=== PATIENT | female | born 1960 | race Caucasian/White ===

== ENCOUNTER → 2020-05-11 13:33 | Outpatient (CLI) | payer BC, SELFPAY ==
--- NOTE | ~2020-05-11 | MM_ITS ---
EXAMINATION: MM screening [facility] HISTORY: Screening mammogram TECHNIQUE: Craniocaudal and mediolateral oblique 3-D tomosynthesis images were obtained and synthetic 2-D images were generated. CAD analysis was submitted and interpreted. COMPARISON: No prior mammogram is available for comparison at this institution. BREAST PARENCHYMAL COMPOSITION: There are scattered areas of fibroglandular density. FINDINGS: Occasional benign calcifications. There is no evidence of suspicious mass, calcification, o r architectural distortion to suggest malignancy in either breast. There has been no suspicious inter serena change. IMPRESSION: 1. No mammographic evidence of malignancy. 2. Recommend routine screening mammography in one year. BI-RADS Category 2: Benign finding(s). Reviewed, dictated and finalized at location A.
== END ==
PROVIDERS: Visit Provider Physician Assistant
DX: Z12.31 Encounter for screening mammogram for malignant neoplasm of breast (principal)
CPT/HCPCS: 77063; 77067

== ENCOUNTER → 2021-05-17 10:31 | Outpatient (CLI) | payer BC, SELFPAY ==
--- NOTE | ~2021-05-17 | MM_ITS ---
EXAMINATION: MM screening [facility] HISTORY: Screening mammogram TECHNIQUE: Craniocaudal and mediolateral oblique 3-D tomosynthesis images were obtained and synthetic 2-D images were generated. CAD analysis was submitted and interpreted. COMPARISON: 05/11/2020 BREAST PARENCHYMAL COMPOSITION: There are scattered areas of fibroglandular density. FINDINGS: There is no evidence of suspicious mass, calcification, or architectural distortion to sugg est malignancy in either breast. There has been no suspicious interval change. IMPRESSION: 1. No mammographic evidence of malignancy. 2. Recommend routine screening mammography in one year. BI-RADS Category 1: Negative Reviewed, dictated and finalized at location A.
== END ==
PROVIDERS: PCP Physician Assistant; Visit Provider Physician Assistant
DX: Z12.31 Encounter for screening mammogram for malignant neoplasm of breast (principal)
CPT/HCPCS: 77063; 77067

== ENCOUNTER → 2021-11-08 10:47 | Outpatient (CLI) | payer BC, SELFPAY ==
--- NOTE | ~2021-11-08 | US_ITS ---
EXAMINATION: US pelvic complete w TV EXAM DATE: 11/08/2021 11:10 INDICATION: Postmenopausal bleeding. TECHNIQUE: Pelvic transabdominal and transvaginal sonogram was performed. There are multiple graysca le and Doppler images available for interpretation. There is no prior study for comparison. FINDINGS: Uterus measures 5.9 x 2.1 x 3.2 cm, and is morphologically normal. Endometrial stripe clair sures 3 mm, within normal limits. There is no free pelvic fluid. Right adnexa: The ovary is not identified. There is no adnexal mass. Left adnexa: The ovary is not identified. There is no adnexal mass. IMPRESSION: Unremarkable pelvic ultrasound exam. Reviewed, dictated and finalized at location G. AD TRIMMER
== END ==
PROVIDERS: Visit Provider Nurse Practitioner Family
DX: N95.1 Menopausal and female climacteric states (principal); N95.0 Postmenopausal bleeding
CPT/HCPCS: 76830; 76856

== ENCOUNTER → 2021-11-20 10:21 | Outpatient (CLI) | payer BC, SELFPAY ==
--- NOTE | ~2021-11-20 | DEXA_ITS ---
Bone Density Report Name: QUIANA REDDING Age: 61 Sex: Female Ethnicity: White Date of : 1960 Indication: postmenopausal osteoporosis; monitoring treatment; height loss; Referring Provider: KRISTI, DARRELL SOTO Study: Bone densitometry was performed. Exam Date: November 20, 2021 Accession number: [id number] Bone Density: Region BMD T-score Z-score Classification AP Spine (L1-L4) 0.818 -2.1 -0.5 Osteopenia Femoral Neck (Left) 0.617 -2.1 -0.7 Osteopenia Total Hip (Left) 0.755 -1.5 -0.4 Osteopenia Femoral Neck (Right) 0.597 -2.3 -0.9 Osteopenia Total Hip (Right) 0.721 -1.8 -0.7 Osteopenia Total Hip Mean 0.738 -1.7 -0.6 Osteopenia World Health Organization criteria for BMD impression classify patients as: Normal (T-score at or above -1.0), Osteopenia (T-score between -1.0 and -2.5), or Osteoporosis (T-score at or below -2.5). 10-year Fracture Risk: FRAX not reported because: Treated for osteoporosis Previous Exams: Region Exam Age BMD T-score BMD Change BMD Change Date g/cm2 vs Baseline vs Previous AP Spine(L1-L4) 11/20/2021 61 0.818 -2.1 0.063* 0.063* 08/12/2019 59 0.755 -2.7 Total Hip(Left) 11/20/2021 61 0.755 -1.5 0.060* 0.060* 08/12/2019 59 0.695 -2.0 Total Hip(Right) 11/20/2021 61 0.721 -1.8 0.026 0.026 08/12/2019 59 0.695 -2.0 *Denotes significance at 95% confidence level, LSC for AP Spine = 0.022 g/cm2, LSC for Total Hip = 0.027 g/cm2 Clinical Information Provided by Patient: Is being treated for osteoporosis Has used the following medications: Fosamax (i.e. alendronate), Vitamin D, Calcium, MTV Patient maximum height was 64.0 Menopause Age: 54 Drinks caffeinated beverages Onset of menses at age 12 Number of children 1 Impression: The patient has low bone mass, based on the Right Femoral Neck T-score. No significant bone loss was observed. Discussion: PATIENT UNDER TREATMENT WITH NO SIGNIFICANT BMD LOSS SINCE LAST EXAM. In an untreated patient, BMD typically declines with age. A lack of decline or gain is usually a sign that treatment is efficacious and fracture risk is reduced. It is important to ask patients whether they are taking their medications and to encourage continued and appropriate compliance with their osteoporosis therapies to reduce fracture risk. It is also important to review their risk factors and encourage appropriate calcium and vitamin D intakes, e
== END ==
PROVIDERS: PCP Physician Assistant; Visit Provider Physician Assistant
DX: M81.0 Age-related osteoporosis without current pathological fracture (principal); M85.88 Other specified disorders of bone density and structure, other site; M85.852 Other specified disorders of bone density and structure, left thigh; M85.851 Other specified disorders of bone density and structure, right thigh
CPT/HCPCS: 77080

== ENCOUNTER → 2021-12-11 08:43 | Outpatient (CLI) | payer BC, SELFPAY ==
--- NOTE | ~2021-12-11 | US_ITS ---
US abdomen limited INDICATION: Elevated liver enzymes PROCEDURE: Realtime right upper abdominal ultrasound. COMPARISON: No prior studies for comparison. FINDINGS: The pancreas is normal without focal mass or pancreatic ductal dilation. Liver echotexture is normal without focal mass or intrahepatic biliary dilatation. There is normal directional flow i n the portal vein. Gallbladder is surgically absent. Common bile duct measures 3.6 mm. No sonographic Dunne's sign. IMPRESSION: 1: Normal limited abdominal ultrasound. Reviewed, dictated and finalized at location A.
== END ==
PROVIDERS: PCP Physician Assistant; Visit Provider Physician Assistant
DX: R74.01 Elevation of levels of liver transaminase levels (principal)
CPT/HCPCS: 76705

== ENCOUNTER → 2022-06-11 15:17 | Outpatient (CLI) | payer BC, SELFPAY ==
--- NOTE | ~2022-06-11 | MM_ITS ---
EXAMINATION: MM screening [facility] BI w carlos HISTORY: Screening mammogram TECHNIQUE: Craniocaudal and mediolateral oblique 3-D tomosynthesis images were obtained and synthetic 2-D images were generated. CAD analysis was submitted and interpreted. COMPARISON: 05/17/2021, 05/11/2020 BREAST PARENCHYMAL COMPOSITION: There are scattered areas of fibroglandular density. FINDINGS: There is no suspicious mass, calcification, or architectural distortion to suggest malignan cy in either breast. There has been no suspicious interval change. IMPRESSION: 1. No mammographic evidence of malignancy. 2. Recommend routine screening mammography in one year. BI-RADS Category 1: Negative Reviewed, dictated and finalized at location A.
== END ==
PROVIDERS: PCP Physician Assistant; Visit Provider Nurse Practitioner
DX: Z12.31 Encounter for screening mammogram for malignant neoplasm of breast (principal)
CPT/HCPCS: 77063; 77067

== ENCOUNTER → 2023-07-15 13:27 | Outpatient (CLI) | payer BC, SELFPAY ==
--- NOTE | ~2023-07-15 | MM_ITS ---
EXAMINATION: MM screening [facility] HISTORY: Screening mammogram TECHNIQUE: Craniocaudal and mediolateral oblique 3-D tomosynthesis images were obtained and synthetic 2-D images were generated. CAD analysis was submitted and interpreted. COMPARISON: 06/11/2022, 05/17/2021, 05/11/2020 bilateral screening mammogram examinations BREAST PARENCHYMAL COMPOSITION: There are scattered areas of fibroglandular density. FINDINGS: There is no evidence of suspicious mass, calcification, or architectural distortion to sugg est malignancy in either breast. There has been no suspicious interval change. IMPRESSION: 1. No mammographic evidence of malignancy. 2. Recommend routine screening mammography in one year. BI-RADS Category 1: Negative Reviewed, dictated and finalized at location A.
== END ==
PROVIDERS: PCP Nurse Practitioner; Visit Provider Physician Assistant
DX: Z12.31 Encounter for screening mammogram for malignant neoplasm of breast (principal)
CPT/HCPCS: 77063; 77067

== ENCOUNTER 2024-06-16 09:21 | Outpatient (CLI) | payer MEDICARE, OTHER, SELFPAY ==
--- NOTE | 2024-06-16 09:32 | ECG_ITS ---
Test Date: 2024-06-16 09:45:17 Measurements Intervals [place] Rate: 74 P: 55 WI: 129 QRS: 22 QRSD: 83 T: 36 QT: 356 QTc: 396 Interpretive Statements SINUS RHYTHM BASELINE ARTIFACT- I, II, III, AVR, AVL, AVF NORMAL ECG No previous ECG available for comparison Electronically Signed On 06-16-2024 10:12:55 CDT by Buddy Valencia D.O.
[2024-06-16 10:50] LABS: Hematocrit 40.6 % (37.0-47.0); Hemoglobin 13.8 g/dL (12.0-15.0)
[2024-06-16 11:00] LABS: Prothrombin Time 13.8 Seconds (11.1-14.7)
[2024-06-16 11:10] LABS: Anion Gap 10 mmol/L (4-12); Blood Urea Nitrogen 15 mg/dL (7-17); Carbon Dioxide 28 mmol/L (22-30); Chloride 100 mmol/L (98-107); Estimated Glomerular Filt Rate > 60; Glucose 109 mg/dL (65-110); Potassium 3.8 mmol/L (3.4-5.0); Sodium 138 mmol/L (137-145)
== END 2024-06-16 09:22 | disposition home or self-care (01) ==
LOC: ANHSURGERY 09:28
PROVIDERS: Anesthesiology; PCP Physician Assistant; Visit Provider Podiatrist Foot & Ankle Surgery
DX: E78.5 Hyperlipidemia, unspecified (principal); E83.119 Hemochromatosis, unspecified; Z01.818 Encounter for other preprocedural examination
CPT/HCPCS: 36415; 80048; 85014; 85018; 85610; 85730; 93005

== ENCOUNTER 2024-06-18 00:57 | Day surgery (SDC) | payer MEDICARE, OTHER, SELFPAY ==
[2024-06-14 12:14] VITALS: BMI 26.2
--- NOTE | 2024-06-14 12:36 | PC.NURSE ---
Report to the Outpatient Waiting Room, entrance under the green pavilion located off [facility], at time __09:30am___on date 06/18/24 . Planned Procedure Time: ___11:30am .? Time changes happen often and if your time is changed the preop area will call you the afternoon before. - You and your visitor will be asked to self-screen and do not enter if you have any COVID symptoms. Please call surgeon if you need to reschedule. - A mask is optional within the hospital at this time. Patients may have clear liquids (water, carbonated beverages, clear teas, apple juice) until 3 hours prior to surgery with a maximum of 20 ounces. - No food from midnight until time of surgery and no smoking ( 08:30am) Take only the following medications with a SIP of water on the morning of surgery: Levothyroxine DO NOT STOP ANY OF YOUR OTHER PRESCRIPTION MEDICATIONS PRIOR TO SURGERY EXCEPT THE FOLLOWING Medications to discontinue per physician ___Hold all vitamins, supplements and probiotics 3 days prior per Anesthesia. Date to take last dose__06/14/24 Please no make-up, nail prydeinig, hairspray, perfume, deodorant, or body powder the day of surgery.? No jewelry (including any body piercings) or valuables the day of surgery, leave them at home.? Please take a shower or bath the night before, or the morning of, surgery with an antibacterial soap.? Wear comfortable, loose fitting clothing.? - Jewelry must be removed prior to entering the operating room.? Rings and piercings that are not removed may be cut off. - The hospital will not accept responsibility for valuables.? - Please leave all valuables, including medications, at home the day of surgery. If you are going home after surgery, a licensed mail truck driver must drive you home.? - NO public transportation without another adult if you receive anesthesia. - We recommend that an adult stay with you for 24 hours following discharge. - We also recommend that you do not drive, make important decision, drink alcoholic beverages, or take any drugs that were not prescribed by your health care provider for at least 24 hours after your discharge time. Follow any additional instructions given to you from your surgeon. Telephone instructions given to _patient and asked if any additional questions and then verbalized understanding. Patient advised to call surgeon office or pre surgery nurse liaison [phone] if any additional questions.
[2024-06-18] VITALS (9 sets, daily range): BP systolic 86–144; BP diastolic 51–104; PULSE 60–90; RESP 12–21; TEMP 36.2–36.8; O2SAT 98–100
--- NOTE | ~2024-06-18 | XR_ITS ---
EXAMINATION: XR surgery orthopedic DATE: 06/18/2024 13:07 INDICATION: Right foot arthrodesis TECHNIQUE: 2 fluoroscopic images of the right forefoot were obtained during procedure performed by Dr Javier Sebastian. Radiologist was not present for the imaging or procedure. The amount of fluoroscopy time used during this procedure was 0.1 minutes. COMPARISON: None. FINDINGS: Right first metatarsophalangeal arthrodesis with compression screw and dorsal plate-screw fixation. I s also been an osteotomy/bunionectomy along the medial head of the first metatarsal. Expected postope rative gas in the surrounding soft tissues. Alignment appears near-anatomic. No fracture. Joint space s are unremarkable. IMPRESSION: 1. Expected appearance post bunionectomy and instrumented first metatarsophalangeal arthrodesis. See procedure note for further detail. Reviewed, dictated and finalized at location A. IMPRESSION: 1. Expected appearance post bunionectomy and instrumented first metatarsophalan geal arthrodesis. See procedure note for further detail.
--- NOTE | 2024-06-18 07:16 | WPDHPUPDATE1 ---
History and Physical Update Update Date/Time: 06/18/24 07:16 History and Physical has been reviewed, including an updated exam of the patient. There are NO changes in the patient's condition. Risks, benefits, and alternatives have been discussed and questions answered. Patient agrees to proceed with procedure.
[2024-06-18] MEDS: LACTATED RINGERS 1,000 ML 30 ML IV CONT (10:20)
--- NOTE | 2024-06-18 10:25 | P.PNAN_ITS ---
Anes - Initial Pre Proc Eval Procedure: Operation Date: 06/18/24 11:30 Proposed Procedures p Arthrodesis of First Metatarsophalangeal Joint Right Foot - Micah Sebastian Jr., DPM Date/Time: 06/18/24 10:25 Surgeon: Micah Sebastian Jr., DPM Pre Op Diagnosis: Arthritic Bunion Right Foot Patient Data Age: 64 Gender: F Height: 1.6 m Weight: 68 kg Last Vital Signs Temp 98.3 F 06/18/24 10:21 Pulse 82 06/18/24 10:21 Resp 16 06/18/24 10:21 BP 144/104 H 06/18/24 10:21 Pulse Ox 99 06/18/24 10:21 O2 Del Method Room Air 06/18/24 10:21 Allergies Allergy/AdvReac Type Severity Reaction Status Date / Time peanut Allergy Intermediate Headache Verified 06/18/24 09:47 Sulfa (Sulfonamide Allergy Intermediate Rash Verified 06/18/24 09:47 Antibiotics) wheat Allergy Intermediate Headache Verified 06/18/24 09:47 Home Medications Medication Instructions Recorded Confirmed Type cholecalciferol (vitamin D3) 125 125 mcg PO DAILY 06/14/24 06/18/24 History mcg (5,000 unit) tablet (Vitamin D3) levothyroxine 50 mcg tablet 50 mcg PO DAILY 06/14/24 06/18/24 History rosuvastatin 5 mg tablet 5 mg PO DAILY 06/14/24 06/18/24 History Patient hx anesthesia problems: none Family hx anesthesia problems: none Results Review: All pre-operative results and documents have been reviewed as part of the pre-o perative evaluation. [facility] Family History Family History Mother Hypertension Other Diabetes mellitus Family history of arthritis Family history of congenital heart disease Family history of malignant neoplasm Social History Social History Smoking status: Never smoker Alcohol intake: never Substance use: never Living arrangements: with family Additional living arrangements comments: Spiritual care concerns: No Anes - Eval Final PreProcedure Day of Procedure 06/18/24 10:25 Patient weight: normal Heart: regular rate and rhythm Lungs: clear to auscultation Airway: Mallampati scale class II Neurological: alert and oriented Last oral intake: >/= 8 hours ASA classification: II Emergent: no Anesthetic plan: proceed Anesthesia type and monitoring: general LMA and standard monitoring Results Review: All pre-operative results and documents have been reviewed as part of the pre- operative evaluation. Hyperlipidemia. Pt active w walking 1-2 fos, no cp or sob. Informed Consent: The patient's anesthetic plan and its attendant risks and benefits were discussed with the patient/family/POA. Questions were solicited and answers provided to the satisfaction of the patient/family/POA.
[2024-06-18] MEDS: ceFAZolin 2 GM/D5W 50 ML 2 GM/50 ML BAG IVPB (12:08)
--- NOTE | 2024-06-18 12:42 | WPDANESPNB ---
Anes - Peripheral Nerve Block Date/Time: 06/18/24 12:42 I have discussed with the patient/family/POA the placement of a peripheral nerve block for post-operative pain management, including associated risks, benefits, complications, and side effects. Alternative methods of post-operative analgesia were detailed. Questions were solicited and answers provided to the satisfaction of the patient/family/POA. Time-Out: A pre-procedural Time-Out was completed immediately before starting the procedure and confirmed: Patient Identification, Site, Procedure, Patient Position and the Availability of Requisite Equipment. Clinical Indications: Acute post-operative pain management requested by the operative surgeon. Nerve Block Insertion Note Anes-nerve block: posterior fossa sciatic and adductor canal Patient position: supine Skin prep: chlorhexidine Needle: 22 gauge, stimulating, insulated echogenic needle. Needle length: 80 mm Technique: ultrasound Injectate: other (Bupiv 0.5%, 20 mls total. 10 mls add canal/10 mls post sciatic. ) Observations: tolerated well Complications: none Procedure start time:: 1150 Procedure end time:: 1157
--- NOTE | 2024-06-18 13:27 | W.PM.PROC2 ---
Procedure Note - Detailed Date of Procedure 06/18/24 Pre-op Diagnosis Arthritic Bunion Right Foot Post-op Diagnosis Same Procedure Performed Arthrodesis of the first metatarsal phalangeal joint right foot Surgeon Micah Sebastian Jr., DPM Anesthesia General and Regional Indications Painful right forefoot Findings Loss of articular cartilage to the first metatarsal phalangeal joint right foot Description of Procedure PROCEDURE IN DETAIL: Under mild sedation, the patient was brought into the operating room, placed on the operating table in supine position. A pneumatic ankle tourniquet was placed about the patient's ipsilateral ankle. Following general anesthesia and a popliteal fossa block, the foot was then scrubbed, prepped, and draped in the usual aseptic manner. An Esmarch bandage was then used to exsanguinate the patient's foot and the pneumatic ankle tourniquet was then inflated. Surgery began in the following manner: Attention was directed to the dorsal medial aspect of the 1st metatarsophalangeal joint where there was a moderate subcutaneous prominence was noted. The incision was made starting along the central shaft of the 1st metatarsal and extending just proximal to the interphalangeal joint of the hallux. The incision was continued deep down through the subcutaneous tissues using sharp and blunt dissection. All bleeders were cauterized as necessary. At this point, the dissection was continued down to the level of the periosteum and capsular structures overlying the 1st metatarsophalangeal joint. A full length periosteum and capsular incision was made just medial to the extensor hallucis longus tendon. The periosteum and capsular structures were freed from the base of the proximal phalanx as well as the distal 1st metatarsal. At this point, the 1st metatarsophalangeal joint was identified. There was loss of articular cartilage to the head of the 1st metatarsal as well as the base of the proximal phalanx worse centrally and medially. There was significant broadening and hypertrophy of the 1st metatarsophalangeal joint. Utilizing a sagittal bone saw, the hypertrophied 1st metatarsal was resected dorsally, medially, and laterally. A power bur was used to make sure that there were no rough edges and also to further debride the hypertrophic 1st metatarsal. Next, a rongeur was used to resect the hypertrophic base of the proximal phalanx. At this point, the reamer system for the Maxforce plate system was used to denude the degenerative cartilage from the head of the 1st metatarsal as well as the base of the proximal phalanx. The cartilage and subchondral bone were fully debrided utilizing the reamer system until healthy bleeding bone was noted. Next, a 2-0 drill bit was used to further fenestrate the head of the 1st metatarsal as well as the base of the proximal phalanx in order to allow fusion across the 1st metatarsophalangeal joint. Next, a guide wire for a 3.0 headed Arthrex compression screw was driven from the medial aspect of the base of the proximal phalanx into the head of the 1st metatarsal in order to serve as temporary fixation, next the cannulated screw was driven and provided excellent compression. Next A large steel plate was used to make sure that the hallux was in a rectus position both in the sagittal plane as well as the frontal plane. Excellent position of the hallux was noted. Next, a Maxforce plate was placed atop the 1st metatarsophalangeal joint held in position with [place] wires. Utilizing standard principles and techniques, the distal drill holes were drilled and three 3.0 mm mm fully-threaded locking screws were driven from dorsal to plantar holding the distal aspect of the plate intact. At this point, the Maxforce compression system was utilized from dorsal distal to proximal plantar across the 1st metatarsophalangeal joint with excellent compression noted. Next, a 3.0mm locking screw was used to furth
== END 2024-06-18 15:45 | disposition home or self-care (01) ==
PROVIDERS: PCP Physician Assistant; Visit Provider Podiatrist Foot & Ankle Surgery
PROC: (CPT 28750; principal; 2024-06-18 11:30)
DX: M21.611 Bunion of right foot (principal); E78.5 Hyperlipidemia, unspecified; G89.18 Other acute postprocedural pain; M19.071 Primary osteoarthritis, right ankle and foot; E83.119 Hemochromatosis, unspecified; E07.9 Disorder of thyroid, unspecified; Z98.890 Other specified postprocedural states; Z80.9 Family history of malignant neoplasm, unspecified; Z82.49 Family history of ischemic heart disease and other diseases of the circulatory system
CPT/HCPCS: 64445; 64447; 28750; 99199; C1713; C1769; J0690; J1100; J2250; J2405; J2704; J3010; J7120

== ENCOUNTER 2024-10-27 11:25 | Outpatient (CLI) | payer MEDICARE, OTHER, SELFPAY ==
--- NOTE | ~2024-10-27 | MM_ITS ---
EXAMINATION: MM screening [facility] BI w carlos HISTORY: Screening TECHNIQUE: Craniocaudal and mediolateral oblique 3-D tomosynthesis images were obtained and synthetic 2-D images were generated. CAD analysis was submitted and interpreted. COMPARISON: Comparison to multiple prior studies sequentially, with oldest reviewed study dated 05/11. BREAST PARENCHYMAL COMPOSITION: Not dense: There are scattered areas of fibroglandular density. FINDINGS: There is no evidence of suspicious mass, calcification, or architectural distortion to sugg est malignancy in either breast. There has been no suspicious interval change. IMPRESSION: 1. No mammographic evidence of malignancy. 2. Recommend routine screening mammography in one year. BI-RADS Category 1: Negative Reviewed, dictated and finalized at location B. DRIVER
== END 2024-10-27 11:26 | disposition home or self-care (01) ==
LOC: MICIMG 11:26
PROVIDERS: PCP Nurse Practitioner; Visit Provider Physician Assistant
DX: Z12.31 Encounter for screening mammogram for malignant neoplasm of breast (principal)
CPT/HCPCS: 77063; 77067

== ENCOUNTER 2024-11-01 08:17 | Outpatient (CLI) | payer MEDICARE, OTHER, SELFPAY ==
--- NOTE | ~2024-11-01 | DEXA_ITS ---
Bone Density Report Name: QUIANA REDDING Age: 64 Sex: Female Ethnicity: White Date of : 1960 Indication: postmenopausal; screening for osteoporosis; height loss; Referring Provider: KRISTI, DARRELL Study: Bone densitometry was performed. Exam Date: November 01, 2024 Accession number: [id number] Bone Density: Region BMD T-score Z-score Classification AP Spine(L1-L4) 0.781 -2.4 -0.6 Osteopenia Femoral Neck (Left) 0.628 -2.0 -0.4 Osteopenia Total Hip (Left) 0.717 -1.8 -0.6 Osteopenia Femoral Neck (Right) 0.605 -2.2 -0.6 Osteopenia Total Hip (Right) 0.682 -2.1 -0.9 Osteopenia Total Hip Mean 0.699 -2.0 -0.8 Osteopenia World Health Organization criteria for BMD impression classify patients as: Normal (T-score at or above -1.0), Osteopenia (T-score between -1.0 and -2.5), or Osteoporosis (T-score at or below -2.5). 10-year Fracture Risk(1): Major Osteoporotic Fracture 11% Hip Fracture 1.9% Reported Risk Factors: [place] (), Neck BMD=0.605, BMI=27.1 (1) FRAX(R) Version 3.08. Fracture probability calculated for an untreated patient. Fracture probability may be lower if the patient has received treatment. Clinical Information Provided by Patient: Has used the following medications: Vitamin D, Calcium Patient maximum height was 64.0 Menopause Age: 54 Drinks caffeinated beverages Onset of menses at age 12 Number of children 1 Impression: The patient has low bone mass, based on the Total Spine T-score. The patient has an estimated ten-year risk of hip fracture of 1.9% and an estimated ten-year risk of major fracture of 11%, based on the WHO FRAX algorithm. Discussion: BONE DENSITY IS LOW AT ONE OR MORE SKELETAL SITES. This patient's lowest T-score is low at one or more skeletal sites. It meets the World Health Organization's (WHO) criteria for ?low bone mass? (T-score between -1.0 and -2.5). The patient's 10-year risk of fracture as calculated by FRAX is less than the threshold where pharmacological therapy is recommended by the National Osteoporosis Foundation (NOF). However, all treatment decisions require clinical judgment and consideration of individual patient factors, including patient preferences, comorbidities, previous drug use, risk factors not captured in the FRAX model (e.g., frailty, falls, vitamin D deficiency, increased bone turnover, interval significant decline in bone density) and possible under or overestimation of fracture risk by FRAX. The patient should follow a healthful lifestyle (good nutrition with adequate calcium and vitamin D, and appropriate weight-bearing exercise). Follow-Up: Consider repeating this study in 2 to 3 years to reassess this patient's status, or sooner if there is some new clinical indication. Reported by: EDY on 11/01/2024 8:46:00 AM. Reviewed, dictated and finalized at location [facility]
--- OUTSIDE RECORDS SUMMARY | 2024-11-01 08:24 | XMS_ITS | Data Portability ---
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 Plan of Treatment Reminders Order Date Submit Date Provider Last Modified By Organization Details Last Modified Time Details Appointments None recorded. Lab vitamin D, 25-hydroxy , total, serum 2022 023 DOMENICA [facility], [address] [facility], [facility] [address], [place], [address], 3 09:05:50 CMP, serum or plasma 2022 023 [email or web address] [facility], [address] [place] [address], [facility] [address], [place], [address], 3 17:14:01 CBC w/ auto diff 2022 023 DOMENICA [facility], [address] [place] [address], [facility] [address], [place], [address], 3 09:05:49 TSH + free T4, serum 2022 023 DOMENICA [facility], [address] [facility], [facility] [address], [place], [address], 3 09:05:49 lipid panel, serum 2022 023 DOMENICA [facility], [address] [facility], [facility] [address], [place], [address], 3 09:05:50 HbA1c (hemoglobi n A1c), blood 2022 023 [email or web address] [facility], [address] [facility], [facility], [place], [address], 3 17:14:01 Referral None recorded. Procedures None recorded. Surgeries None recorded. Imaging MAMMO, screening, digital, bilateral 2022 023 [facility], [address], [facility] [address], [place], [address], 3 16:25:06 Medication Orders None recorded. Patient TargetsNo targets recorded. Patient InstructionsNo instructions recorded. Reason for Referral None Reported. Results Created Date Observation Date Name Description Value Unit Range Abnormal Flag Note LastModifiedBy Organization Detail LastModifiedTime 12/08/1912/08/2021 GGT GGT 247 IU/L 0-60 above high normal Not Available [facility] ([facility]) [address] [facility], [place], [address], 12/13/2021 20:09:50 12/08/19 22 12/08/2021 ANTI- GUERRERO H MUSCL E/HENRRY [place] D. actin (smooth muscle) antibody 4 units 0-19 Negat jackie 0 - 19 Weak posit jackie 20 - 30 Moder ate to stron g posit jackie >30 Actin Antib odies are found in 52-85 % of patie nts with autoi mmune hepat itis or chron ic activ e hepat itis and in 22% of patie nts with prima ry bilia ry cirrh osis. Not Available [facility] ([facility]) [address] [facility], [place], [address], 12/13/2021 20:09:50 12/08/19 22 12/08/2021 ANTI- GUERRERO H MUSCL E/HENRRY [place] D. mitochondria l (M2) antibody <20.0 units 0.0-20 .0 Negat jackie 0.0 - 20.0 Equiv ocal 20.1 - 24.9 Posit jackie >24.9 Mitoc hondr ial (M2) Antib odies are found in 90-96 % of patie nts with prima ry bilia ry cirrh osis. Not Available [facility] ([facility]) [address] [facility], [place], [address], 12/13/2021 20:09:50 12/08/19 22 12/08/2021 HEPAT ITIS PANEL (4) hep A Ab, IgM negati ve negati ve Not Available [facility] ([facility]) [address] [place], [address], 12/13/2021 20:09:49 12/08/19 22 12/08/2021 HEPAT ITIS PANEL (4) HBsAg screen negati ve negati ve Not Available [facility] ([facility]) [address] [place], [address], 12/13/2021 20:09:49 12/08/19 22 12/08/2021 HEPAT ITIS PANEL (4) hep B core Ab, IgM negati ve negati ve Not Available [facility] ([facility]) [address] [place], [address], 12/13/2021 20:09:49 12/08/19 22 12/08/2021 HEPAT ITIS PANEL (4) hep C virus Ab 0.1 s/co_ ratio 0.0-0. 9 Negat jackie: < 0.8 Indet ermin ate: 0.8 - 0.9 Posit jackie: > 0.9 The CDC recom mends that a posit jackie HCV antib heather resul t be follo wed up with a HCV Nucle ic Acid Ampli ficat ion test (5507 13). Eff ectiv e January 21, 2022 Hepat itis Panel (4) will be made non-o rdera ble. [facility] offer s order code [id number] Acute Hepat itis. Not Available [facility] ([facility]) [address] [place], [address], 12/13/2021 20:09:49 12/08/19 22 12/13/2021 ALKAL INE PHOSP HATAS E ISOEN ZYME alkaline phosphatase 225 U/L 40-120 above high normal Not Available [facility] [address] [place], [address], 12/13/2021 20:09:49 12/08/19 22 12/13/2021 ALKAL INE PHOSP HATAS E ISOEN ZYME alk-phosphat ase liver calc 185 U/L 0-94 above high normal INTER PRETI VE INFOR MATIO N: Alk-P hosph atase Liver Calc Bone Speci fic Alkal ine Phosp hatas e (0070 053) and 5'-nu cleot idase (0080 235) may be usefu l in ident ifyin g disor ders of bone and liver , respe ctive ly. Not Available [facility] ([facility]) [address] [place], [address], 12/13/2021 20:09:49 12/08/19 22 12/13/2021 ALKAL INE PHOSP HATAS E ISOEN ZYME alk-phosphat ase bone calc 41 U/L 0-55 Not Available [facility] [address] [place], [address], 12/13/2021 20:09:49 12/08/19 22 12/13/2021 ALKAL INE PHOSP HATAS E ISOEN ZYME alk-phosphat ase other calc 0 U/L Not Available [facility] [address] [place], [address], 12/13/2021 20:09:49 12/08/19 22 12/08/2021 HEPAT IC FUNCT ION PANEL (7) protein, total 7.2 g/dL 6.0-8. 5 Not Available [facility] ([facility]) [address] [facility], [place], [address], 12/13/2021 20:09:48 12/08/19 22 12/08/2021 HEPAT IC FUNCT ION PANEL (7) albumin 4.5 g/dL 3.8-4. 8 Not Available [facility] ([facility]) [address] [facility] [place], [address], 12/13/2021 20:09:48 12/08/19 22 12/08/2021 HEPAT IC FUNCT ION PANEL (7) bilirubin, total 0.2 mg/dL 0.0-1. 2 Not Available [facility] ([facility]) [address] [facility] [place], [address], 12/13/2021 20:09:48 12/08/19 22 12/08/2021 HEPAT IC FUNCT ION PANEL (7) bilirubin, direct <0.10 mg/dL 0.00-0 .40 Not Available [facility] ([facility]) [address] [facility] [place], [address], 12/13/2021 20:09:48 12/08/19 22 12/08/2021 HEPAT IC FUNCT ION PANEL (7) alkaline phosphatase 234 IU/L 44-121 above high normal Not Available [facility] ([facility]) [address] [place], [address], 12/13/2021 20:09:48 12/08/19 22 12/08/2021 HEPAT IC FUNCT ION PANEL (7) AST (SGOT) 45 IU/L 0-40 above high normal Not Available [facility] ([facility]) [address] [facility] [place], [address], 12/13/2021 20:09:48 12/08/19 22 12/08/2021 HEPAT IC FUNCT ION PANEL (7) ALT (SGPT) 79 IU/L 0-32 above high normal Not Available [facility] ([facility]) [address] [place], [address], 12/13/2021 20:09:48 11/29/19 22 11/20/2021 DEXA No observ ation record ed. [id number] [facility] [address], [place], [address], 11/20/2022 18:02:38 12/13/19 22 12/11/2021 US, abdom en, limit ed No observ ation record ed. [id number] [facility] [address], [place], [address], 11/20/2022 18:02:38 04/03/20 22 04/03/2022 XR, elbow , 3 or more view No observ ation record ed. [id number] [facility] [address] [facility], [place], [address], 11/20/2022 18:02:38 04/04/20 22 XR, elbow No observ ation record ed. [id number] Not Available 11/20/2022 18:02:38 05/07/20 22 XR, elbow , 2 view No observ ation record ed. [id number] [id number] [address], [place], [address], 11/20/2022 18:02:38 07/15/20 23 07/15/2023 MAMMO , scree binu, digit al, bilat eral No observ ation record ed. BARCODE [facility] [address], [place], [address], 07/15/2023 16:25:06 Result Notes None recorded. Problems Name Problem SNOMED Code Status Onset Date Resolution Date Notes Provider Name and Address Organization Details Recorded Time Acute sinusitis 69316655 Active 2021 Not Available [facility] 3 18:01:44 Chronic sinusitis 15973399 Active 2015 Not Available [facility] 3 18:01:44 Acute urinary tract infection 644526403 Active 2021 Not Available [facility] 3 18:01:44 Carpal tunnel syndrome 30234295 Active Not Available [facility] 3 18:01:44 Osteoporosis 58833334 Active 2021 Not Available [facility] 3 18:01:44 Liver enzymes level above reference range 597283989 Active 2021 Not Available [facility] 3 18:01:44 Hypothyroidis m 63365565 Active 2022 HI Ribeiro [address] [facility], [place], [address] , [place] [facility] [employer] 17:23:18 Problem Notes None recorded. Procedures Surgical History Date Name Laterality Status Provider Name and Address Organization Details Recorded Time 11/21/19 22 Most Recent Bone Density completed Not Available [facility] 11/20/2022 18:01:04 12/22/19 17 Unlisted px accessory sinus completed Not Available [facility] 11/20/2022 18:01:04 07/02/20 16 Date of Last Colonoscopy completed Not Available [facility] 11/20/2022 18:01:04 07/02/20 16 Colonoscopy completed Not Available [facility] 11/20/2022 18:01:04 05/23/20 16 Orthopedic Surgery completed Not Available [facility] 11/20/2022 18:01:04 Breast reduction completed Not Available [facility] 11/20/2022 18:01:04 Cholecystectomy completed Not Available [facility] 11/20/2022 18:01:04 Orthopedic Surgery completed Not Available [facility] 11/20/2022 18:01:04 Imaging Results Imaging Date Name Status LastModified by Organiz ation Details LastModified Time 11/20/2021 DEXA completed [id number] [facility] [address], [place], [address], 11/20/2022 18:02:38 12/11/2021 US, abdomen, limited completed [id number] [facility] [address], [place], [address], 11/20/2022 18:02:38 04/04/2022 XR, elbow completed [id number] Information not available 11/20/2022 18:02:38 04/03/2022 XR, elbow, 3 or more view completed [id number] [facility] [address], [place], [address], 11/20/2022 18:02:38 05/07/2022 XR, elbow, 2 view completed [id number] [facility] [address], [place], [address], 11/20/2022 18:02:38 07/15/2023 MAMMO, screening, digital, bilateral completed BAR[facility] [address], [place], [address], 07/15/2023 16:25:06 Procedure Notes None recorded. Medical Equipment None Reported. Allergies Allergen ID Allergen Name Allergen Category Reaction Reaction Severity Criticality Documentation Date Start Date Code Code System Note Provider Name and Address Organization Details Recorded Time 98484 wheat preparati on food,medi cation Not available Not available Not available 11/20/2022 94367 52 RxNorm Not Available [facility] 18:02:37 04309 Substance with sulfonami de structure and antibacte rial mechanism of action (substanc e) medicatio n rash Not available Not available 11/20/2022 59817 8003 SNOMED Not Available [facility] 18:02:37 Medications Name Sig Start Date Stop Date Status Note LastModified by Organization Details LastModified Time azithromyci n 250 mg tablet TAKE 2 TABLETS (500 MG) BY ORAL ROUTE ONCE DAILY FOR 1 DAY THEN 1 TABLET (250 MG) BY ORAL ROUTE ONCE DAILY FOR 4 DAYS active Not Available Not Available No t Available hydrocodone 5 mg-acetamin ophen 325 mg tablet 04/04 completed Not Available Not Available Not Available prednisone 20 mg tablet TAKE 2 TABLETS BY MOUTH DAILY FOR 5 DAYS 04/12 completed Not Available Not Available Not Available alendronate 70 mg tablet TAKE 1 TABLET BY MOUTH EVERY WEEK active Not Available Not Available No t Available ciprofloxac in 500 mg tablet TAKE 1 TABLET BY MOUTH EVERY 12 HOURS 11/01 completed Not Available Not Available Not Available Tamiflu 75 mg capsule Take 1 capsule twice a day by oral route. 04/23 completed Not Available Not Available Not Available amoxicillin 875 mg tablet TAKE 1 TABLET BY MOUTH EVERY 12 HOURS FOR 10 DAYS 04/18 completed Not Available Not Available Not Available benzonatate 100 mg capsule 05/17 completed Not Available Not Available Not Available levothyroxi ne 50 mcg tablet TAKE 1 TABLET BY MOUTH EVERY DAY IN THE MORNING active Not Available Not Available No t Available polymyxin B sulfate 10,000 unit-trimet hoprim 1 mg/mL eye drops active Not Available Not Available Not Available Cheratussin AC 10 mg-100 mg/5 mL oral liquid Take 10 mL every 4 hours by oral route as needed. 04/23 completed Not Available Not Available Not Available methylpredn isolone 4 mg tablets in a dose pack FOLLOW PACKAGE DIRECTION S active Not Available Not Available No t Available cefdinir 300 mg capsule Take 1 capsule every 12 hours by oral route. active Not Available Not Available No t Available fluticasone propionate 50 mcg/actuati on nasal spray,suspe nsion SHAKE LIQUID AND USE 1 SPRAY IN EACH NOSTRIL EVERY DAY active Not Available Not Available No t Available doxycycline hyclate 100 mg tablet 05/18 completed Not Available Not Available Not Available naproxen 500 mg tablet Take 1 tablet twice a day by oral route with meals. active Not Available Not Available No t Available amoxicillin 875 mg-potassiu m clavulanate 125 mg tablet TAKE 1 TABLET BY MOUTH EVERY 12 HOURS 11/01 completed Not Available Not Available Not Available tobramycin 0.3 %-dexametha sone 0.1 % eye drops,suspe nsion active Not Available Not Available Not Available Glucosamine Chondroitin capsule takes 1500mg daily 04/04 completed Not Available Not Available Not Available Vitamin D3 25 mcg (1,000 unit) capsule Take 1 capsule every day by oral route. 05/18 completed Not Available Not Available Not Available nitrofurant oin monohydrate /macrocryst als 100 mg capsule TAKE 1 CAPSULE BY MOUTH TWICE DAILY FOR 7 DAYS 03/16 completed Not Available Not Available Not Available evening primrose oil takes 100mg 3times a day 04/04 completed Not Available Not Available Not Available biotin takes 5000mg daily 04/12 completed Not Available Not Available Not Available Calcium 500 takes 2 tabs daily 04/12 completed Not Available Not Available Not Available Adult Low Dose Aspirin takes daily. 03/16 completed Not Available Not Available Not Available Aller-Teri 10 mg tablet Take 1 tablet every day by oral route. 2015 active Not Available Not Available Not Avai lable Probiotic takes daily 2015 active Not Available Not Available Not Avai lable Prepopik 10 mg-3.5 gram-12 gram oral powder packet 10/28 completed Not Available Not Available Not Available Vitals Date Recorded Body mass index (BMI) Body mass index (BMI) Body mass index (BMI) Body mass index (BMI) Body height Body height Body height Body height Oxygen saturation Oxygen saturation in Arterial blood by Pulse oximetry Oxygen saturation Oxygen saturation in Arterial blood by Pulse oximetry Pain severity - 0-10 verbal numeric rating [Score] - Reported Heart rate Heart rate Respiratory rate Respiratory rate Body temperature Body weight Body weight Body weight Body weight Systolic blood pressure Diastolic blood pressure Systolic blood pressure Diastolic blood pressure Provider Name and Address Organization Details Last Updated DateTime 3 256.4 kg/m2 24.3 kg/m2 24.7 kg/m2 24.1 kg/m2 162.56 cm 160.02 cm 160.02 cm 160.02 cm 98 % 98 % 97 % 97 % 2 110 /min 80 /min 16 /min 16 /min 97.6 [degF] 165239 g 89601.1 5 g 38840.4 9 g 10579.5 6 g 132 mm[Hg] 82 mm[Hg] 120 mm[Hg] 78 mm[Hg] Not Available [facility] 3 18:01:31 Date Recorded Body height Body temperature Body mass index (BMI) Body weight Respiratory rate Oxygen saturation Oxygen saturation in Arterial blood by Pulse oximetry Heart rate Systolic blood pressure Diastolic blood pressure Provider Name and Address Organization Details Last Updated DateTime 3 160.02 cm 97.2 [degF] 25.3 kg/m2 84825.7 1 g 16 /min 99 % 99 % 89 /min 128 mm[Hg] 78 mm[Hg] AMANDA Longoria [employer] 09:53:22 Date Recorded Systolic blood pressure Diastolic blood pressure Provider Name and Address Organization Details Last Updated DateTime 04/21/2023 120 mm[Hg] 70 mm[Hg] HI Ribeiro [address] [facility] [address], [place], [address], [employer] 04/21/2023 10:15:47 Social History Question Answer Notes LastModified by Organizat ion Details LastModified Time Tobacco Smoking Status Never Smoker Not Available [facility] 11/20/2022 18:01:02 What Is Your Level Of Alcohol Consumption? None [id number] Information not available 11/20/2022 What Is Your Level Of Caffeine Consumption? None [id number] Information not available 11/20/2022 How Much Tobacco Do You Chew? None [id number] Information not available 11/20/2022 In The 14 Days Before Symptom Onset, Have You Had Close Contact With A Laboratory-confir med COVID-19 While That Case Was Ill? No [id number] Information not available 11/20/2022 In The 14 Days Before Symptom Onset, Have You Had Close Contact With A Person Who Is Under Investigation For COVID-19 While That Person Was Ill? No [id number] Information not available 11/20/2022 Are You Currently Employed? Yes Information not available 04/18/2023 What Type Of Diet Are You Following? REGULAR [id number] Information not available 11/20/2022 Do You Or Have You Ever Used E-cigarettes Or Vape? 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 No [id number].[id number] Information not available 11/20/2022 Are There Any Guns Present In Your Home? Yes [id number] Information not available 11/20/2022 Do You Use Insect Repellent Routinely? No [id number] Information not available 11/20/2022 What Is Your Relationship Status? [id number] Information not available 11/20/2022 Do You Use Your Seat Belt Or Car Seat Routinely? Yes [id number].[id number] Information not available 11/20/2022 Do You Have Smoke And Carbon Monoxide Detectors In Your Home? Yes [id number].[id number] 4525 Information not available 11/20/2022 Do You Or Have You Ever Used Smokeless Tobacco? Never Used Smokeless Tobacco [id number].[id number] 1465 Information not available 11/20/2022 How Much Tobacco Do You Smoke? No [id number].[id number] 9165 Information not available 11/20/2022 Do You Use Any Illicit Or Recreational Drugs? No [id number].132971 9901 Information not available 11/20/2022 Do You Use Sunscreen Routinely? Yes MIGRATION.925888 3092 Information not available 11/20/2022 How Many Years Have You Smoked Tobacco? 0 [id number].782213 4168 Information not available 11/20/2022 Have You Recently Traveled Abroad? No MIGRATION.367915 5213 Information not available 11/20/2022 Do You Have Any Dietary Restrictions? No MIGRATION.357966 0287 Information not available 11/20/2022 Do You Or Have You Ever Used Any Other Forms Of Tobacco Or Nicotine? No MIGRATION.631541 7808 Information not available 11/20/2022 Sex: Unknown Functional Status Question Answer Note LastModified by Organizat ion Details LastModified Time What is your exercise level? Moderate [id number] Information not available 11/20/2022 Mental Status None recorded. Family History Relationship Description Onset Age of this Age Resolved Age Notes LastModified by Organization Details LastModified Time Mother Heart disease [id number] Not available 11/20/2022 18:01:05 Mother Hypertensive disorder [id number] Not available 11/20/2022 18:01:05 Mother Diabetes mellitus [id number] Not available 11/20/2022 18:01:05 Father Malignant neoplasm of liver [id number] Not available 11/20/2022 18:01:05 Unspecified Relation Aneurysm [id number] Not available 11/20/2022 18:01:05 Medical History Condition Response NERVE DISEASE N BLINDNESS N RHEUMATIC FEVER N KIDNEY STONES N BLADDER PROBLEMS N OTHER # 1 N POLIO N LUNG DISEASE/DISORDER N RADIATION / CHEMOTHERAPY N COPD N Other # 2 N BLOOD DISEASES N SURGERY N EAR OR HEARING PROBLEMS N MUMPS N DEPRESSION (INCLUDING POST ) N BOWEL PROBLEMS N STROKE/TIA N ULCERS N BENIGN PROSTATIC HYPERPLASIA N MEASLES N MYOCARDIAL INFARCTION N OBESITY N GERD/NAUSEA N ANEURYSM N URINARY/BLADDER/KIDNEY PROBLEMS N INPATIENT PSYCH CARE N CORONARY ARTERY DISEASE (CAD) N ADDICTION CONCERNS N Impotence N ENDOMETRIOSIS N USE OF BLOOD THINNERS N SKIN PROBLEMS N GASTROINTESTINAL DISORDER N PERIPHERAL VASCULAR DISEASE N MUSCLE,JOINT OR BONE PROBLEMS N GASTROINTESTINAL BLEEDING N BLOOD CLOTS N ASTHMA N CATARACTS N ERECTILE DYSFUNCTION N VARICOSITIES N GI PROBLEMS N Low Testosterone N INFERTILITY N AIDS/HIV N LIVER DISEASE N MALE HYPOGONADISM N HYPERTENSION N Deficiency N ANXIETY DISORDER N BLOOD TRANSFUSION N ANEMIA/BLOOD DISORDER N CHRONIC EAR INFECTIONS N BRONCHITIS N TUBERCULOSIS N GLAUCOMA N DIVERTICULITIS N SLEEP APNEA N CHICKENPOX N INFECTIOUS DISEASE N PROSTATE N HEART ARRHYTHMIA N INSOMNIA N HIGH CHOLESTEROL / HYPERLIPIDEMIA N HYPERTHYROIDISM N EYE PROBLEMS Y NEUROLOGICAL PROBLEMS N EDEMA N CHRONIC PAIN SYNDROME N HYPOTHYROIDISM N CONSTIPATION N CAROTID BLOCKAGE N BACK / NECK PROBLEMS N HAVE YOU BEEN HOSPITALIZED OR SEEN IN [facility] IN THE PAST YEAR ? N ATHEROSCLEROSIS N BREAST PROBLEMS N DIALYSIS N ECZEMA N OSTEOPOROSIS N ARTHRITIS N NO SIGNIFICANT PAST MEDICAL HISTORY N APPENDICITIS N DIABETES, TYPE N BAD TEETH N ENT N HEARTBURN / REFLUX N AUTISM SPECTRUM DISORDER (ASD) N HEPATITIS / LIVER DISEASE N PULMONARY DISEASE N GOUT N SLEEP DISORDER N ALZHEIMER'S DISEASE N Brain Problems N HERPES N DEMENTIA N SEIZURES/EPILEPSY N HEADACHES/MIGRAINES N VASCULAR DISEASE N PACEMAKER N Blood Disorder N DIZZINESS N KIDNEY DISEASE N HEART DISEASE/HEART PROBLEMS N MULTIPLE SCLEROSIS N CARDIAC ARRHYTHMIA N CANCER: SPECIFY N ANESTHESIA COMPLICATIONS N Gall Stones N ATRIAL FIBRILLATION N PULMONARY EMBOLISM N AUTOIMMUNE DISEASE N Gynecological History Statement/Question Response Abnormal Pap N Date of Last Mammogram 05/11/2020 Date of Last Colonoscopy 07/02/2016 Most Recent Bone Density 11/20/2021 Sexually Active? Y Menses Monthly N Date of Last Pap 03/16/2020 Current Control Method Menopause Obstetrics History GPAL:G 1 P 0 0 0 1 Type Value Living 1 Total 1 Immunizations Vaccine Type Date Status Note Provider Nam e and Address Organization Details Recorded Time Influenza, split virus, quadrivalent, PF 07/21/2020 completed Not Available [facility] 3 18:02:35 Influenza, split virus, quadrivalent, PF 07/13/2019 completed Not Available [facility] 3 18:02:35 Influenza, split virus, quadrivalent, PF 07/10/2018 completed Not Available [facility] 3 18:02:36 Tdap 07/10/2018 completed Not Available [facility] 11/20/2022 18:02:36 Past Encounters Encounter ID Performer Location Encounter Start Date Encounter Closed Date Diagnosis/Indication Diagnosis SNOMED-CT Code Diagnosis ICD10 Code Diagnosis Note [id number] [facility] [address] [place] [address] 11/23/2020 00:00:00 12/14/2020 22:25:50 [id number] [facility] [address] [place] [address] 03/16/2021 00:00:00 03/17/2021 00:25:07 [id number] [facility] [address] [place] [address] 12/05/2021 00:00:00 12/17/2021 14:00:59 [id number] [facility] [address] [place] [address] 04/12/2022 00:00:00 04/12/2022 13:14:41 [id number] [facility] [address] [place] [address] 04/19/2022 00:00:00 04/19/2022 15:46:34 [id number] [facility] [address] [place] [address] 05/07/2022 00:00:00 05/07/2022 11:16:41 [id number] HI Ribeiro [facility] [address] [place] [address] 04/21/2023 09:45:22 04/21/2023 10:17:08 Adult health examination 264103384 Z00.00 well exam completed. annual labs ordered Cholesterol screening 27 4075310 Z13.220 Diabetes m ellitus screening 148041820 Z13.1 Long-term drug therapy 433292524 Z79.899 Osteoporosis 91394211 M8 1.0 dexa due again 2023. Screening mammography 24 480118 Z12.31 mammogram due in april. we were not copied on last years report Liver enzy mes level above reference range 199470572 R74.8 seeing liver specialist at [facility] and planned for liver biopsy this week. Health Concerns Section Related Observation LastModified by Organization Detai ls LastModified Time None Recorded Concern Status LastModified by Organization Details LastModified Time None Recorded Advance Directives Directive None Recorded Payers Encounter Date Sequence Insurance Name Policy Number Policy Saunders Covered Member ID Saunders Member ID Guarantor Name 04/21/2023 1 [facility]: (PPO) [id number] Rosa Zackary Sales [id number] Rosa Raymundo Sales Notes Date Note Type Note Provider Name and Address Organization Details Recorded Time 12/05/2021 text/html Generic HPI TemplateReported bypatient.Notes:Pt is here to f/u on labs the specialist did. liver enzymes were elevated despite being normal at her last check here with our office. No recent illness or new prescription meds. no pain. no jaundice. Not Available [employer] 12/17/2021 14:00:59 04/19/2022 text/html Generic HPI TemplateReported bypatient.Notes:Pt is here for her wellness. No chronic problems. she does have right arm sling in place from a radial head fracture this summer, from tripping on side walk and falling on outstretched arm. Dr. Bay has seen her in management. Not Available [employer] 04/19/2022 15:46:34 04/21/2023 text/html Generic HPI TemplateReported bypatient.Notes:Pt is here for her wellness. No chronic problems. Wellness HI Ribeiro [address] [place] [address], [facility] [address], [place], [address], [employer] 04/21/2023 10:16:06 OBGyn Episode No OBEpisode recorded.
--- OUTSIDE RECORDS SUMMARY | 2024-11-01 08:24 | XMS_ITS ---
Care Plan - [facility] Created on: November 01, 2024 QUIANA REDDING : 1960 Sex: Female Author Organization [facility] Address [address] [place] [address] Phone Care Team Providers Care Grinding Machine Operator Name Role Phone JULISSA MENDEZ, PEYMAN C Unavailable [phone]
--- OUTSIDE RECORDS SUMMARY | 2024-11-01 08:24 | XMS_ITS | Data Portability ---
Author Organization [place] [employer] [facility] Address [address] [place] [address] Care Team Providers Care Graffiti Cleaner Name Role Phone MADONNA AMARO Referring Provider [phone] Assessment No assessment recorded. Plan of Treatment Reminders Order Date Submit Date Provider Last Modified By Organization Details Last Modified Time Details Appointments None recorded. Lab None recorded. Referral None recorded. Procedures None recorded. Surgeries None recorded. Imaging None recorded. Medication Orders Medrol (Lizandro) 4 mg tablets in a dose pack 2021 [facility] [id number], [address], [id number], 09:46:53 fluticasone propionate 50 mcg/actuati on nasal spray,suspe nsion 2021 [facility] [address][id number], [address], [place], [id number], 09:46:53 Patient TargetsNo targets recorded. Patient Instructions Encounter Date Encounter Id Patient Instructions Last Modified By Organization Details Last Modified Time 03/06/2022 [id number] seasonal allergies: care instructions [email or web address] Not available 03/06/2022 09:49:57 Patient is encouraged to follow-up with PCP for all primary care, and chronic disease management. Patient is also encouraged to contact primary care for initial directive for acute illness management, and utilize the walk-in clinic, when the PCP is not available. [email or web address] Not available 03/06/2022 09:49:57 Patient understands instructions and will seek medical attention if symptoms worsen as directed. Not available 03/06/2022 09:49:53 Reason for Referral None Reported. Procedures Surgical History Date Name Laterality Status Provider Name and Address Organization Details Recorded Time Date of Last Mammogram completed [facility] 03/06/2022 09:30:57 Imaging Results None recorded. Procedure Notes None recorded. Medical Equipment None Reported. Allergies Allergen ID Allergen Name Allergen Category Reaction Reaction Severity Criticality Documentation Date Start Date Code Code System Note Provider Name and Address Organization Details Recorded Time [id number] Substance with sulfonami de structure and antibacte rial mechanism of action (substanc e) medicatio n Not available Not available Not available 03/06/2022 11826 8003 SNOMED [facility] 09:32:52 Medications Name Sig Start Date Stop Date Status Note LastModified by Organization Details LastModified Time Medrol (Lizandro) 4 mg tablets in a dose pack Taper per packet instruction 2021 active Not Available Not Available Not Avai lable fluticasone propionate 50 mcg/actuatio n nasal spray,suspen alba Ranger 1 spray every day by intranasal route. 2021 active Not Available Not Available Not Avai lable Vitals Date Recorded Body weight Body mass index (BMI) Body height Body temperature Heart rate Oxygen saturation Oxygen saturation in Arterial blood by Pulse oximetry Systolic blood pressure Diastolic blood pressure Provider Name and Address Organization Details Last Updated DateTime 2 28196.4 2 g 22.9 kg/m2 160.02 cm 98.2 [degF] 90 /min 97 % 97 % 126 mm[Hg] 80 mm[Hg] [facility] 09:35:12 Social History Question Answer Notes LastModified by Organizat ion Details LastModified Time What Is Your Relationship Status? [email or web address] Information not available 03/06/2022 Sex: Unknown Functional Status None recorded. Mental Status None recorded. Family History Nothing Reported. Medical History No medical history recorded. Gynecological History Statement/Question Response Date of Last Mammogram 12/21/2021 Obstetrics History GPAL:G 0 P 0 0 0 0 Past Encounters Encounter ID Performer Location Encounter Start Date Encounter Closed Date Diagnosis/Indication Diagnosis SNOMED-CT Code Diagnosis ICD10 Code Diagnosis Note [id number] Adrianna Pelayo APRN [facility] [address] [place] [address] 03/06/2022 08:38:19 03/06/2022 20:46:27 Acute maxillary sinusitis 97235463 J01.00 acute progressin g, initial Symptoms progressin g and not responding to conservati ve treatment. Rx management with Medrol taper per packet instructio ns. Pt instructed to perform daily nasal saline irrigation followed by Flonase 1 spray each nostril bid x 7 days, then once daily. Continue the Zyrtec daily. F/u for new/worsen ing symptoms but antiiotic treatment not warranted at this time Posterior rhinorrhea 758 48880 R09.82 chronic, worsening, initial See above Seasonal a llergic rhinitis 894239307 J30.2 chronic, worsening, initial PE and HPI consistent with allergic rhinitis causing PND and sinus congestion -see above. Continue current treatment with Zyrtec daily and add Flonase as above Health Concerns Section Related Observation LastModified by Organization Detai ls LastModified Time None Recorded Concern Status LastModified by Organization Details LastModified Time None Recorded Advance Directives Directive None Recorded Payers Encounter Date Sequence Insurance Name Policy Number Policy Saunders Covered Member ID Saunders Member ID Guarantor Name 03/06/2022 1 [employer] [employer] [place] [id number] Rosa Boateng [id number] Rosa Boateng Notes Date Note Type Note Provider Name and Address Organization Details Recorded Time 03/06/2022 text/html CORONAVIRUS SCREENING TOOL Are you experiencing any NEW symptom(s) listed below that is not due to another health problem None of the below Is anyone else in your household experiencing any NEW symptoms No In the past 2 weeks did you have close contact (within 6 feet for at least 15 minutes) with someone with symptoms of COVID-19 or who tested positive for COVID-19 No In the past 2 weeks have you been tested for COVID-19 No, I have not been tested Why did you get tested? Please select all that apply N/A In the past 2 weeks has someone in your household tested positive for COVID-19 No Have you ever received a dose of COVID-19 vaccine? Yes Which vaccine product did you receive? [employer] ([employer], J[employer]J) Imported from [employer] on 03/06/2022 Pt presents with c/o runny nose, PND, and nasal congestion x 5 days. Denies fever, chills, sore throat, ear pain. She has been taking OTC Advil Cold and Sinus with some relief. She takes a daily Zyrtec for allergic rhinitis. Does not perform nasal saline rinse or use Flonase Adrianna Pelayo, COMPLIANCE TECHNICIAN [address] [facility] [address], [place], [address], [facility] - [facility], [facility] 03/06/2022 09:50:30 OBGyn Episode No OBEpisode recorded.
--- OUTSIDE RECORDS SUMMARY | 2024-11-01 08:24 | XMS_ITS | Clinical Summary ---
Author Organization [facility] Address [address] [place] [address] Phone Care Team Providers Care [employer] Name Role Phone Shaye Meza Primary Care Provider Allergies Active Allergy Reactions Criticality Noted Date Comments Sulfa Antibiotics Unknown 07/15/2017 Wheat Unknown 07/15/2017 Medications cetirizine (ZYRTEC) 10 MG Tablet Take by mouth. Activ e Probiotic Product (PROBIOTIC DAILY PO) Take by mouth. Activ e Aspirin 81 MG Tablet Take 81 mg by mouth daily. Active methylPREDNISol one (MEDROL DOSPACK) 4 MG Tablet Therapy PackIndications :Synovitis of right foot TAKE DIRECTED 1 Dose Pack 7 Active Additional Information Patient not taking.Reported on 07/29/2017 CALCIUM PO Take by mouth. Acti ve Active Problems Problem Noted Date Diagnosed Date Primary osteoarthritis of right foot 07/15/2017 Synovitis of right foot 07/15/2017 Metatarsalgia, right foot 07/15/2017 Family History Medical History Relation Name Comments Cancer Father Diabetes Mother Heart Disease Mother Hypertension Mother Diabetes Sister Heart Disease Sister Hypertension Sister Relation Name Status Comments Father Mother Sister Social History Tobacco Use Types Packs/Day Years Used Date Smoking Tobacco: Never Smokeless Tobacco: Never Alcohol Use Standard Drinks/Week Comments No 0 (1 standard drink = 0.6 oz pur e alcohol) Comments No Sex and Gender Information Value Date Recorded Sex Assigned at Not on file Legal Sex Female 11:35 PM CDT Gender Identity Not on file Sexual Orientation Not on file Last Filed Vital Signs Vital Sign Reading Time Taken Comments Blood Pressure 132/84 07/29/2017 8:52 AM OB/GYN Pulse 77 07/29/2017 8:52 AM OB/GYN Temperature 36.8 C (98.3 F) 07/29/2017 8:52 AM OB/GYN Respiratory Rate 16 07/29/2017 8:52 AM OB/GYN Oxygen Saturation 94% 07/29/2017 8:52 AM OB/GYN Inhaled Oxygen Concentration - - Weight 66.2 kg (146 lb) 07/29/2017 8:52 AM OB/GYN Height 162.6 cm (5' 4 ) 07/29/2017 8:52 AM OB/GYN Body Mass Index 25.06 07/29/2017 8:52 AM OB/GYN Plan of Treatment Health Maintenance Due Date Last Done Comments DEXA Bone Density 1960 Hepatitis C Virus (HCV) Screening 1960 TdaP Immunization 1960 Pap Smear 01/17/1980 Cervical Cancer Screening (CCS) 1989 HPV/Cotest 1989 Colonoscopy 01/17/2004 Colorectal Cancer Screening 01/17/2004 Cologuard 2009 Immunochemical Fecal Occult Blood 2009 Pneumococcal Immunization (5 0+ years) (1 of 1 - PCV) 2009 Zoster Immunization (1 of 2) 2009 Mammogram 01/27/2019 01/27/2017, 01/22/2016 Influenza Immunization (#1) 2024 SARS-COV-2 Immunization ( - 2023-25 season) 2024 Respiratory Syncytial Virus (RSV) Immunization (Adult) (1 - 1-dose 75+ series) 2034 Hepatitis B Immunization Aged Out No longer eligible based on patient's age to complete this topic Meningococcal Immunization (ACWY) Aged Out No longer eligible b ased on patient's age to complete this topic Rotavirus Immunization Aged Out No lo nger eligible based on patient's age to complete this topic Procedures Procedure Name Priority Date/Time Associated Diagnosis Comments MICHELLE SCREENING BILATERAL DIGITAL W CAD Routine 01/27/2017 8:35 AM CDT Visit for screening mammogram from Last 3 Months or Most Recently Relevant to Health Maintenance Results * MICHELLE SCREENING BILATERAL DIGITAL W CAD (01/27/2017 8:35 AM CDT) Anatomical Region Laterality Modality breast Bilateral Mammography 01/27/2017 8:05 AM CDT Narrative 01/27/2017 4:22 PM CDT - MICHELLE SCREENING BILATERAL DIGITAL W CAD BILATERAL DIGITAL SCREENING MAMMOGRAM WITH CAD WITH MEDIOLATERAL OBLIQUE CRANIOCAUDAL: 01/27/2017 The study was acquired using digital technology and interpreted from soft copy. Current study was also evaluated with ICAD version 7.2. CLINICAL: Routine screening. Patient has no complaints. No personal history of cancer. No family history of breast cancer. COMPARISONS: Comparison is made to exams dated: 01/22/2016, 12/21/2014, and 12/17/2013 [facility]. BREAST TISSUE:There are scattered fibroglandular densities in both breasts. FINDINGS: No significant masses, calcifications, or other findings are seen in either breast. There has been no significant interval change. IMPRESSION: BI-RAD 1 NEGATIVE There is no mammographic evidence of malignancy. A 1 year screening mammogram is recommended. The patient has been or will be contacted. The patient will be entered into a reminder system with a target due date of 1 year for her next screening exam. Electronically signed by: Frederick mukherjee/[place]:01/27/2017 10:10:19 Shipping Room Supervisor: Cherry HENAO)(Franky), [facility] letter sent: Normal Exam Reading location: [facility] BI-RADS: 1 Negative Procedure Note Frederick Pina MD - 01/27/2017 - MICHELLE SCREENING BILATERAL DIGITAL W CAD BILATERAL DIGITAL SCREENING MAMMOGRAM WITH CAD WITH MEDIOLATERAL OBLIQUE CRANIOCAUDAL: 01/27/2017 The study was acquired using digital technology and interpreted from soft copy. Current study was also evaluated with ICAD version 7.2. CLINICAL: Routine screening. Patient has no complaints. No personal history of cancer. No family history of breast cancer. COMPARISONS: Comparison is made to exams dated: 01/22/2016, 12/21/2014, and 12/17/2013 [facility]. BREAST TISSUE:There are scattered fibroglandular densities in both breasts. FINDINGS: No significant masses, calcifications, or other findings are seen in either breast. There has been no significant interval change. IMPRESSION: BI-RAD 1 NEGATIVE There is no mammographic evidence of malignancy. A 1 year screening mammogram is recommended. The patient has been or will be contacted. The patient will be entered into a reminder system with a target due date of 1 year for her next screening exam. Electronically signed by: Frederick Pina M.D. ab/[place]:01/27/2017 10:10:19 Shipping Room Supervisor: Cherry MOON(Daisy)(M), [facility] letter sent: Normal Exam Reading location: [facility] BI-RADS: 1 Negative us Radha De La O APRN, CHAD IMG MAMMO ORDERABLES Fin al Result from Last 3 Months or Most Recently Relevant to Health Maintenance Care Teams [employer] Relationship Specialty Start Date End Date Shaye Meza PA PCP - General Family Medicine 01/27/17
--- OUTSIDE RECORDS SUMMARY | 2024-11-01 08:24 | XMS_ITS ---
Author Organization [facility] Address [address] [place] [address] Phone Care Team Providers Care Enterprise Analyst Name Role Phone JULISSA MENDEZ, PEYMAN Elmore Unavailable [phone] Problems Includes: Active, inactive, and resolved Problems All Visits Onset Date Resolved Date Provider Condition S tatus Osteopenia 02/28/2014 ALFONSO LOUIE WHNP-BC Active Last Documented On 12/27/2016 8:01AM ; [facility] Note: DEXA done Plan of Treatment Findings Encounter Date Ordered Clinical summary pro vided to patient ANNUAL ENTREPRENEUR EXAM with ALFONSO LOUIE WHNP-BC 03/01/2019 Last Documented On 9 11:20AM ; [facility] Ordered follow-up visit 1 ye ar or as needed ANNUAL ENTREPRENEUR EXAM with ALFONSO LOUIE WHNP-BC 03/01/2019 Last Documented On 9 11:20AM ; [facility] Ordered Clinical summary pro vided to patient ANNUAL ENTREPRENEUR EXAM with ALFONSO LOUIE WHNP-BC 01/05/2018 Last Documented On 8 11:11AM ; [facility] Ordered follow-up visit 1 ye ar or as needed ANNUAL ENTREPRENEUR EXAM with ALFONSO LOUIE WHNP-BC 01/05/2018 Last Documented On 8 11:11AM ; [facility] Ordered Clinical summary pro vided to patient STORES DESPATCH HAND EXAM with ALFONSO LOUIE WHNP-BC 12/27/2016 Last Documented On 7 8:19AM ; [facility] Ordered follow-up visit 1 ye ar or as needed STORES DESPATCH HAND EXAM with ALFONSO LOUIE WHNP-BC 12/27/2016 Last Documented On 7 8:19AM ; [facility] Ordered Clinical summary pro vided to patient ANNUAL ENTREPRENEUR EXAM with ALFONSO LOUIE WHNP-BC 11/30/2015 Last Documented On 6 8:56AM ; [facility] Ordered follow-up visit 1 ye ar or as needed ANNUAL ENTREPRENEUR EXAM with ALFONSO LOUIE NP-BC 11/30/2015 Last Documented On 6 8:56AM ; [facility] Ordered Clinical summary pro vided to patient ANNUAL ENTREPRENEUR EXAM with ALFONSO LOUIE WHNP-BC 11/28/2014 Last Documented On 5 11:08AM ; [facility] Ordered follow-up visit 1 ye ar or as needed ANNUAL ENTREPRENEUR EXAM with ALFONSO LOUIE NP-BC 11/28/2014 Last Documented On 5 11:08AM ; [facility] Ordered Clinical summary pro vided to patient ANNUAL ENTREPRENEUR EXAM with ALFONSO LOUIE NP-BC 11/25/2013 Last Documented On 4 10:34AM ; [facility] Ordered follow-up visit 1 ye ar or as needed ANNUAL ENTREPRENEUR EXAM with ALFONSO LOUIE NP-BC 11/25/2013 Last Documented On 4 10:34AM ; [facility] Ordered Clinical summary pro vided to patient STORES DESPATCH HAND EXAM with ALFONSO LOUIE NP-BC 11/20/2012 Last Documented On 3 10:40AM ; [facility] Ordered follow-up visit 1 ye ar or as needed STORES DESPATCH HAND EXAM with ALFONSO LOUIE NP-BC 11/20/2012 Last Documented On 3 10:40AM ; [facility] Pt. states menses are, spac ing out and sometimes skip a month. I advised her that if a full year passes without a cycle, she should contact me if any bleeding at that point. Denies any menopausal sx ANNUAL ENTREPRENEUR EXAM with ALFONSO LOUIE NP-BC 11/20/2011 Last Documented On 2 10:40AM ; [facility] Ordered follow-up visit 1 ye ar or as needed ANNUAL ENTREPRENEUR EXAM with ALFONSO LOUIE [facility] 11/20/2011 Last Documented On 2 10:40AM ; [facility] Ordered follow-up visit 1 ye ar or as needed STORES DESPATCH HAND EXAM with ALFONSO LOUIE [facility]- 11/19/2010 Last Documented On 1 1:01PM ; [facility] Ordered follow-up visit 1 ye ar or as needed NEW STORES DESPATCH HAND EXAM with ALFONSO LOUIE [facility]- 10/09/2009 Last Documented On 0 1:40PM ; [facility] Instructions to patient Instructions for patient : B reast Self Exam discussed Last Documented On 9 11:06AM ; [facility] Instructions for patient : B reast Self Exam discussed Last Documented On 8 10:56AM ; [facility] Colonoscopy Handout given to patient Last Documented On 8 10:57AM ; [facility] Instructions for patient : B reast Self Exam discussed Last Documented On 7 8:00AM ; [facility] Colonoscopy Handout given to patient Last Documented On 7 8:01AM ; [facility] Instructions for patient : B reast Self Exam discussed Last Documented On 6 8:47AM ; [facility] Colonoscopy Handout given to patient Last Documented On 6 8:48AM ; [facility] Instructions for patient : B reast Self Exam discussed Last Documented On 5 10:51AM ; [facility] Colonoscopy Handout given to patient Last Documented On 5 10:51AM ; [facility] Instructions for patient : B reast Self Exam discussed Last Documented On 4 10:04AM ; [facility] Colonoscopy Handout given to patient Last Documented On 4 10:05AM ; [facility] Instructions for patient : B reast Self Exam discussed Last Documented On 3 10:21AM ; [facility] Instructions for patient : B reast Self Exam discussed Last Documented On 2 10:26AM ; [facility] Instructions for patient : B reast Self Exam discussed Last Documented On 1 12:48PM ; [facility] Instructions for patient : B reast Self Exam discussed Last Documented On 0 9:25AM ; [facility] Education and Decision Aids were provided during visit for: Patient Education: Daily lesly cium and vitamin D Last Documented On 9 11:06AM ; [facility] Patient Education: weight be aring exercise Last Documented On 9 11:06AM ; [facility] Patient Education: Daily lesly cium and vitamin D Last Documented On 8 10:56AM ; [facility] Patient Education: weight be aring exercise Last Documented On 8 10:56AM ; [facility] Patient Education: Daily lesly cium and vitamin D Last Documented On 7 8:00AM ; [facility] Patient Education: weight be aring exercise Last Documented On 7 8:00AM ; [facility] Patient Education: Daily lesly cium and vitamin D Last Documented On 6 8:47AM ; [facility] Patient Education: weight be aring exercise Last Documented On 6 8:47AM ; [facility] Patient Education: Daily lesly cium and vitamin D Last Documented On 5 10:51AM ; [facility] Patient Education: weight be aring exercise Last Documented On 5 10:51AM ; [facility] Patient Education: Daily lesly cium and vitamin D Last Documented On 4 10:04AM ; [facility] Patient Education: weight be aring exercise Last Documented On 4 10:04AM ; [facility] Patient Education: Daily lesly cium and vitamin D Last Documented On 3 10:21AM ; [facility] Patient Education: weight be aring exercise Last Documented On 3 10:21AM ; [facility] Patient Education: Daily lesly cium and vitamin D Last Documented On 2 10:26AM ; [facility] Patient Education: weight be aring exercise Last Documented On 2 10:26AM ; [facility] Patient Education: Daily lesly cium and vitamin D Last Documented On 1 12:48PM ; [facility] Patient Education: weight be aring exercise Last Documented On 1 12:48PM ; [facility] Patient Education: Daily lesly cium and vitamin D Last Documented On 0 9:25AM ; [facility] Patient Education: weight be aring exercise Last Documented On 0 9:25AM ; [facility] Assessments Includes: Assessments for all patient encounters Findings Encounter Date NORMAL FEMALE EXAM ANNUAL ENTREPRENEUR EXAM with ALFONSO LOUIE NP-BC 03/01/2019 Last Documented On 9 11:20AM ; [facility] Screening Malig. Neoplasm Rectum ANNUAL ENTREPRENEUR EXAM with ALFONSOZEKE LOUIE NP-BC 03/01/2019 Last Documented On 9 11:20AM ; [facility] NORMAL FEMALE EXAM ANNUAL ENTREPRENEUR EXAM with ALFONSOZEKE LOUIE NP-BC 01/05/2018 Last Documented On 8 11:11AM ; [facility] Screening Malig. Neoplasm Rectum ANNUAL ENTREPRENEUR EXAM with ALFONSO LOUIE NP-BC 01/05/2018 Last Documented On 8 11:11AM ; [facility] NORMAL FEMALE EXAM STORES DESPATCH HAND EXAM with ALFONSO LOUIE W P-BC 12/27/2016 Last Documented On 7 8:19AM ; [facility] Screening Malig. Neoplasm Rectum STORES DESPATCH HAND EXAM with Catarina SERGEY LOUIE NP-BC 12/27/2016 Last Documented On 7 8:19AM ; [facility] NORMAL FEMALE EXAM ANNUAL ENTREPRENEUR EXAM with ALFONSO A LIBAN NP-BC 11/30/2015 Last Documented On 6 8:56AM ; [facility] Screening Malig. Neoplasm Rectum ANNUAL ENTREPRENEUR EXAM with ALFONSO Patel LOUIE NP-BC 11/30/2015 Last Documented On 6 8:56AM ; [facility] NORMAL FEMALE EXAM ANNUAL ENTREPRENEUR EXAM with ALFONSO A LIBAN WHNP-BC 11/28/2014 Last Documented On 5 11:08AM ; [facility] Screening Malig. Neoplasm Rectum ANNUAL ENTREPRENEUR EXAM with ALFONSO A LIBAN WHNP-BC 11/28/2014 Last Documented On 5 11:08AM ; [facility] NORMAL FEMALE EXAM ANNUAL ENTREPRENEUR EXAM with ALFONSO A LIBAN WHNP-BC 11/25/2013 Last Documented On 4 10:34AM ; [facility] Screening Malig. Neoplasm Rectum ANNUAL ENTREPRENEUR EXAM with ALFONSO LOUIE NP-BC 11/25/2013 Last Documented On 4 10:34AM ; [facility] NORMAL FEMALE EXAM STORES DESPATCH HAND EXAM with ALFONSO Ca P-BC 11/20/2012 Last Documented On 3 10:40AM ; [facility] Screening Malig. Neoplasm Rectum STORES DESPATCH HAND EXAM with Catarina LOUIE NP-BC 11/20/2012 Last Documented On 3 10:40AM ; [facility] NORMAL FEMALE EXAM ANNUAL ENTREPRENEUR EXAM with ALFONSO LOUIE NP-BC 11/20/2011 Last Documented On 2 10:40AM ; [facility] Screening Malig. Neoplasm Rectum ANNUAL ENTREPRENEUR EXAM with ALFONSO LOUIE [facility] 11/20/2011 Last Documented On 2 10:40AM ; [facility] NORMAL FEMALE EXAM STORES DESPATCH HAND EXAM with ALFONSO Ca P-BC 11/19/2010 Last Documented On 1 1:01PM ; [facility] Screening Malig. Neoplasm Rectum STORES DESPATCH HAND EXAM with Catarina LOUIE [facility]-BC 11/19/2010 Last Documented On 1 1:01PM ; [facility] Normal routine history and physical NEW STORES DESPATCH HAND EXAM with ALFONSO LOUIE [facility] 10/09/2009 Last Documented On 0 1:40PM ; [facility] Routine pelvic exam NEW STORES DESPATCH HAND EXAM with ALFONSO OTERO [facility] 10/09/2009 Last Documented On 0 1:40PM ; [facility] Screening Malig. Neoplasm Rectum NEW STORES DESPATCH HAND EXAM wi th ALFONSO LOUIE [facility] 10/09/2009 Last Documented On 0 1:40PM ; [facility] Instructions Includes: Instructions for all patient encounters Instructions to patient Instructions for patient : B reast Self Exam discussed Last Documented On 9 11:06AM ; [facility] Instructions for patient : B reast Self Exam discussed Last Documented On 8 10:56AM ; [facility] Colonoscopy Handout given to patient Last Documented On 8 10:57AM ; [facility] Instructions for patient : B reast Self Exam discussed Last Documented On 7 8:00AM ; [facility] Colonoscopy Handout given to patient Last Documented On 7 8:01AM ; [facility] Instructions for patient : B reast Self Exam discussed Last Documented On 6 8:47AM ; [facility] Colonoscopy Handout given to patient Last Documented On 6 8:48AM ; [facility] Instructions for patient : B reast Self Exam discussed Last Documented On 5 10:51AM ; [facility] Colonoscopy Handout given to patient Last Documented On 5 10:51AM ; [facility] Instructions for patient : B reast Self Exam discussed Last Documented On 4 10:04AM ; [facility] Colonoscopy Handout given to patient Last Documented On 4 10:05AM ; [facility] Instructions for patient : B reast Self Exam discussed Last Documented On 3 10:21AM ; [facility] Instructions for patient : B reast Self Exam discussed Last Documented On 2 10:26AM ; [facility] Instructions for patient : B reast Self Exam discussed Last Documented On 1 12:48PM ; [facility] Instructions for patient : B reast Self Exam discussed Last Documented On 0 9:25AM ; [facility] Education and Decision Aids were provided during visit for: Patient Education: Daily lesly cium and vitamin D Last Documented On 9 11:06AM ; [facility] Patient Education: weight be aring exercise Last Documented On 9 11:06AM ; [facility] Patient Education: Daily lesly cium and vitamin D Last Documented On 8 10:56AM ; [facility] Patient Education: weight be aring exercise Last Documented On 8 10:56AM ; [facility] Patient Education: Daily lesly cium and vitamin D Last Documented On 7 8:00AM ; [facility] Patient Education: weight be aring exercise Last Documented On 7 8:00AM ; [facility] Patient Education: Daily lesly cium and vitamin D Last Documented On 6 8:47AM ; [facility] Patient Education: weight be aring exercise Last Documented On 6 8:47AM ; [facility] Patient Education: Daily lesly cium and vitamin D Last Documented On 5 10:51AM ; [facility] Patient Education: weight be aring exercise Last Documented On 5 10:51AM ; [facility] Patient Education: Daily lesly cium and vitamin D Last Documented On 4 10:04AM ; [facility] Patient Education: weight be aring exercise Last Documented On 4 10:04AM ; [facility] Patient Education: Daily lesly cium and vitamin D Last Documented On 3 10:21AM ; [facility] Patient Education: weight be aring exercise Last Documented On 3 10:21AM ; [facility] Patient Education: Daily lesly cium and vitamin D Last Documented On 2 10:26AM ; [facility] Patient Education: weight be aring exercise Last Documented On 2 10:26AM ; [facility] Patient Education: Daily lesly cium and vitamin D Last Documented On 1 12:48PM ; [facility] Patient Education: weight be aring exercise Last Documented On 1 12:48PM ; [facility] Patient Education: Daily lesly cium and vitamin D Last Documented On 0 9:25AM ; [facility] Patient Education: weight be aring exercise Last Documented On 0 9:25AM ; [facility] Medical Equipment - Implanted Devices Includes: Current and historical Devices No Medical Equipment Recorded Medications Includes: Current and historical Medications Current Medications (continue as prescribed) Adult Aspirin EC Low Strength 81MG Oral Tablet D elayed Release 12/27/2016 Provider: Diagnosis: Last Documented On 12/27/2016 8:10AM By SAL PATEL ; [facility] Biotin 1000MCG Oral Tablet 12/27/2016 Provider: Diagnosis: Last Documented On 12/27/2016 8:10AM By SAL PATEL ; [facility] ZyrTEC Allergy 10 MG Capsule 11/30/2015 Provider: Diagnosis: Last Documented On 11/30/2015 8:48AM By MARISSA CARD CMA ; [facility] Calcium Citrate-Vitamin D 200-125 MG-UNIT Tablet 11/28 Provider: Diagnosis: Last Documented On 5 10:58AM By SAL PATEL ; [facility] Past Medications on file Evening [place] Oil-Cranber ry 500-200 MG Capsule, conventional 11/28/2014 - 12/27/2016 Provider: Diagnosis: Last Documented On 12/27/2016 8:09AM By SAL PATEL ; [facility] Mimvey 1-0.5 MG OR TABS 07/27/2014 - 11/28/2014 Provider: ALFONSO SMITH Diagnosis: HORMONE REPLACE POSTMENO Last Documented On 5 10:57AM By SAL PATEL ; [facility] Estradiol-Norethindrone Acet 0.5-0.1 MG OR TABS 07/22/2014 - 07/27/2014 Provider: ALFONSO SMITH Diagnosis: HORMONE REPLACE POSTMENO Last Documented On 4 8:07AM By ALFONSO SMITH ; [facility] Femhrt Low Dose 0.5-2.5 MG-MCG OR TABS 03/21/2014 - 07/27/2014 Provider: ALFONSO SMITH Diagnosis: HORMONE REPLACE POSTMENO Last Documented On 4 8:07AM By ALFONSO SMITH ; [facility] Femhrt Low Dose 0.5-2.5 MG-MCG OR TABS 02/17/2014 - 03/21/2014 Provider: ALFONSO SMITH Diagnosis: HORMONE REPLACE POSTMENO Last Documented On 4 10:23AM By ALFOSNO MSITH ; [facility] Femhrt Low Dose 0.5-2.5 MG-MCG OR TABS 11/25/2013 - 02/17/2014 Provider: ALFONSO SMITH Diagnosis: HORMONE REPLACE POSTMENO Last Documented On 4 8:56AM By ALFONSO SMITH ; [facility] Medications Administered Includes: Administered Medications in patient's chart No Administered Medications Recorded Results Includes: Results from 11/01/2023 through 11/01/2024 No Results Recorded For Specified Dates History of Present Illness History of Present Illness not supported for this document type No History of Present Illness Recorded Social History Description Last Updated In monogamous relationship 03/01/2019 Last Documented On 9 11:20AM ; [facility] Non-smoker 03/01/2019 Last Documented On 9 11:20AM ; [facility] Not using alcohol 03/01/2019 Last Documented On 9 11:20AM ; [facility] Not using drugs 03/01/2019 Last Documented On 9 11:20AM ; [facility] Sexually active with 1 partners in the l ast year 03/01/2019 Last Documented On 9 11:20AM ; [facility] Social history changed retiring at the nd of this month 03/01/2019 Last Documented On 9 11:20AM ; [facility] Smoking status : Never smoker 03/01/2019 Last Documented On 9 11:20AM ; [facility] The racial background white 01/05/2018 Last Documented On 8 11:11AM ; [facility] Procedures and Surgical History Surgical History Last Updated Surgical / procedural histor y 2 foot surgeries ~gallbladder ~Rt Carpal tunnel ~sinus 01/05/2018 Last Documented On 8 11:11AM ; [facility] History of cholecystectomy 2005 11/30/19 16 Last Documented On 6 8:56AM ; [facility] Medical History Includes: Medical History in patient's chart Description Last Updated No recent change in medical history 02/20 Last Documented On 9 11:20AM ; [facility] History of screening mammogram was perfo rmed 201703/01/2019 Last Documented On 9 11:20AM ; [facility] Result: normal @[facility] 03/01/2019 Last Documented On 9 11:20AM ; [facility] Sexually active 03/01/2019 Last Documented On 9 11:20AM ; [facility] History of a DXA of the late ral lumbar spine was performed 05/31/2016 osteopenia 03/01/2019 Last Documented On 9 11:20AM ; [facility] History of complete colonoscopy 2015 Dr Kulkarni repeat in 201503/01/2019 Last Documented On 9 11:20AM ; [facility] History of Pap smear done 12/27/201602/20 Last Documented On 9 11:20AM ; [facility] Result: normal 03/01/2019 Last Documented On 9 11:20AM ; [facility] 1 11/30/2015 Last Documented On 6 8:56AM ; [facility] History of menopause 201211/30/2015 Last Documented On 6 8:56AM ; [facility] LMP: 03/03/2013 11/30/2015 Last Documented On 6 8:56AM ; [facility] Para 1 11/30/2015 Last Documented On 6 8:56AM ; [facility] Family History Includes: Family History in patient's chart Description Last Updated Family history unchanged 03/01/2019 Last Documented On 9 11:20AM ; [facility] Maternal history of diabetes mellitus mo ther and sister 03/01/2019 Last Documented On 9 11:20AM ; [facility] Maternal history of family history of he art disease mother and sister 03/01/2019 Last Documented On 9 11:20AM ; [facility] Maternal history of hypertension mother 03/01/2019 Last Documented On 9 11:20AM ; [facility] Maternal history of pure hypercholestero lemia mother 03/01/2019 Last Documented On 9 11:20AM ; [facility] Spouse name: Aida 11/25/2013 Last Documented On 4 10:34AM ; [facility] Family history of diabetes mellitus moth er and sister 11/25/2013 Last Documented On 4 10:34AM ; [facility] Family history of heart disease mother a nd sister 11/25/2013 Last Documented On 4 10:34AM ; [facility] Family history of hypertension mother Last Documented On 4 10:34AM ; [facility] Family history of hypercholesterolemia m other 11/19/2010 Last Documented On 1 1:01PM ; [facility] Family history of Diabetes 10/10/2009 Last Documented On 0 1:40PM ; [facility] Family history of thyroid disease 2009 Last Documented On 0 1:40PM ; [facility] Family medical history of high blood pre ssure 10/10/2009 Last Documented On 0 1:40PM ; [facility] Family medical history of High Cholester ol 10/10/2009 Last Documented On 0 1:40PM ; [facility] Review of Systems Review of Systems not supported for this document type No Review of Systems Recorded Mental Status No Mental Status Recorded Functional Status No Functional Status Recorded Physical Exam Physical Exam not supported for this document type No Physical Exam Recorded Allergies Includes: Active, inactive, and resolved Allergies Substance Type Reaction Onset Date Resolved Date Statu s Sulfa Antibiotics Allergy Skin Rashes / Eruption of skin, Hives / Urticaria 10/09/2009 Active Last Documented On 8 11:03AM ; [facility] Insurance Includes: Active Insurance Policies Plan Name Member ID Group # Subscriber Relationship Effect jackie Dates 1 - [facility] [id number] QUIANA REDDING Self Clinical Notes Includes: Signed Clinical Notes starting from 10/11/2022 No Clinical Notes Recorded
--- OUTSIDE RECORDS SUMMARY | 2024-11-01 08:24 | XMS_ITS | Clinical Summary ---
Author Organization [facility] Address [address] [place] [address] Phone Care Team Providers Care Trauma Nurse Name Role Phone JULISSA MENDEZ, PEYMAN Elmore Unavailable [phone] Reason for Visit and Chief Complaint gynecologic annual exam - The Chief Complaint is: Annual Problems Includes: Problems addressed during this encounter and other active Problems All Visits Onset Date Resolved Date Provider Condition S tatus Osteopenia 02/28/2014 ALFONSO LOUIE [facility]- Active Last Documented On 12/27/2016 8:01AM ; [facility] Note: DEXA done Plan of Treatment - Follow-up visit 1 year or as needed - Last Documented On 12/27/2016 8:19AM ; [facility] - Clinical summary provided to patient - Last Documented On 12/27/2016 8:19AM ; [facility] Instructions to patient Instructions for patient : B reast Self Exam discussed Last Documented On 7 8:00AM ; [facility] Colonoscopy Handout given to patient Last Documented On 7 8:01AM ; [facility] Education and Decision Aids were provided during visit for: Patient Education: Daily lesly cium and vitamin D Last Documented On 7 8:00AM ; [facility] Patient Education: weight be aring exercise Last Documented On 7 8:00AM ; [facility] Assessments Includes: Assessments from this encounter Findings - NORMAL FEMALE EXAM - Last Documented On 12/27/2016 8:19AM ; [facility] - Screening Malig. Neoplasm Rectum - Last Documented On 12/27/2016 8:19AM ; [facility] Instructions Includes: Instructions from this encounter Instructions to patient Instructions for patient : B reast Self Exam discussed Last Documented On 7 8:00AM ; [facility] Colonoscopy Handout given to patient Last Documented On 7 8:01AM ; [facility] Education and Decision Aids were provided during visit for: Patient Education: Daily lesly cium and vitamin D Last Documented On 7 8:00AM ; [facility] Patient Education: weight be aring exercise Last Documented On 7 8:00AM ; [facility] Medical Equipment - Implanted Devices Includes: Current Devices No Medical Equipment Recorded Medications Includes: Medications discussed during this encounter and other current Medications Discontinued / Stopped on this date on 11/28/2014 Evening Hurlock Oil-Cranber ry 500-200 MG Capsule, conventional Provider: Diagnosis: Last Documented On 12/27/2016 8:09AM By SAL PATEL ; [facility] Current Medications (continue as prescribed) Adult Aspirin EC Low Strength 81MG Oral Tablet D elayed Release 12/27/2016 Provider: Diagnosis: Last Documented On 12/27/2016 8:10AM By SAL PATEL ; [facility] Biotin 1000MCG Oral Tablet 12/27/2016 Provider: Diagnosis: Last Documented On 12/27/2016 8:10AM By SAL PATEL ; [facility] ZyrTEC Allergy 10 MG Capsule 11/30/2015 Provider: Diagnosis: Last Documented On 11/30/2015 8:48AM By MARISSA CARD CMA ; [facility] Calcium Citrate-Vitamin D 200-125 MG-UNIT Tablet 11/28 Provider: Diagnosis: Last Documented On 5 10:58AM By SAL PATEL ; [facility] Medications Administered Includes: Administered Medications from this encounter No Administered Medications Recorded Vital Signs Includes: Vital Signs from this encounter Vital Name 12/27/2016 08:04A Blood Pressure Sitting L 130/80 BP Cuff Size Regular Height (in) 63 Weight (lb) 153 Body Mass Index (kg/m2) 27.1 Body Surface Area (m2) 1.7 Last Documented: On 12/27/2016 8:05AM ; [facility] Results Includes: Results discussed during this encounter No Results Recorded For Specified Dates History of Present Illness Includes: History of Present Illness from this encounter HPI QUIANA REDDING is a 56 year old female. - Medication list reviewed - PRIMARY CARE PROVIDER : Archana Meza - Menopause has occurred Social History Description Last Updated Sexually active with 1 partners in the l ast year 12/27/2016 Last Documented On 7 8:19AM ; [facility] Non-smoker 12/27/2016 Last Documented On 7 8:19AM ; [facility] Not using alcohol 12/27/2016 Last Documented On 7 8:19AM ; [facility] Not using drugs 12/27/2016 Last Documented On 7 8:19AM ; [facility] Social history unchanged 12/27/2016 Last Documented On 7 8:19AM ; [facility] Smoking status : Never smoker 12/27/2016 Last Documented On 7 8:19AM ; [facility] Procedures and Surgical History Includes: Procedures from this encounter Procedures Code Diagnosis Performing Provider Service L ocation Service Date low fat diet Last Documented On 7 8:01AM ; [facility] fecal occult blood test was negative [id number] Last Documented On 7 8:00AM ; [facility] normal history of Pap smear of cervix Last Documented On 7 8:08AM ; [facility] Cervical Pap Smear performed [id number] Last Documented On 7 8:01AM ; [facility] Surgical History Last Updated Surgical / procedural histor y 2 foot surgeries ~gallbladder ~Rt Carpal tunnel 12/27/2016 Last Documented On 7 8:19AM ; [facility] History of cholecystectomy 2005 11/30/19 16 Last Documented On 7 8:00AM ; [facility] Medical History Includes: Medical History addressed during this encounter Description Last Updated Recent change in medical his tory Pt did follow up with pcp in 2015 for elevated pth and she ran more blood work and everything came back normal 12/27/2016 Last Documented On 7 8:19AM ; [facility] Vaginal delivery 12/27/2016 Last Documented On 7 8:19AM ; [facility] History of complete colonoscopy 06/2016 Repeat in 10 years-Dr Kulkarni 12/27/2016 Last Documented On 7 8:19AM ; [facility] Sexually active 12/27/2016 Last Documented On 7 8:19AM ; [facility] History of a DEXA of the lat era lumbar spine was performed 05/31/2016 Osteopenia 12/27/2016 Last Documented On 7 8:19AM ; [facility] History of Pap smear done 11/25/201303/2017 Last Documented On 7 8:19AM ; [facility] History of screening mammogram was perfo rmed 01/22/2016 12/27/2016 Last Documented On 7 8:19AM ; [facility] Result: normal 12/27/2016 Last Documented On 7 8:19AM ; [facility] Result: normal 12/27/2016 Last Documented On 7 8:19AM ; [facility] 1 11/30/2015 Last Documented On 7 8:00AM ; [facility] History of menopause 2013 11/30/2015 Last Documented On 7 8:00AM ; [facility] LMP: 03/03/2013 11/30/2015 Last Documented On 7 8:00AM ; [facility] Para 1 11/30/2015 Last Documented On 7 8:00AM ; [facility] Family History Includes: Family History addressed during this encounter Description Last Updated Family history unchanged 12/27/2016 Last Documented On 7 8:19AM ; [facility] Maternal history of diabetes mellitus mo ther and sister 12/27/2016 Last Documented On 7 8:19AM ; [facility] Maternal history of family history of he art disease mother and sister 12/27/2016 Last Documented On 7 8:19AM ; [facility] Maternal history of hypertension mother 12/27/2016 Last Documented On 7 8:19AM ; [facility] Maternal history of pure hypercholestero lemia mother 12/27/2016 Last Documented On 7 8:19AM ; [facility] Spouse name: Aida 11/25/2013 Last Documented On 7 8:00AM ; [facility] Family history of Diabetes 10/10/2009 Last Documented On 7 8:00AM ; [facility] Family history of thyroid disease 2009 Last Documented On 7 8:00AM ; [facility] Family medical history of high blood pre ssure 10/10/2009 Last Documented On 7 8:00AM ; [facility] Family medical history of High Cholester ol 10/10/2009 Last Documented On 7 8:00AM ; [facility] Review of Systems Includes: Review of Systems from this encounter Gastrointestinal: No pelvic pain. Genitourinary: No postmenopausal bleeding. No vaginal discharge. Mental Status Includes: Mental Status from this encounter No Mental Status Recorded Functional Status Includes: Functional Status from this encounter No Functional Status Recorded Physical Exam Includes: Physical Exam from this encounter Allergies Includes: Active Allergies Substance Type Reaction Onset Date Resolved Date Statu s Sulfa Antibiotics Allergy Skin Rashes / Eruption of skin, Hives / Urticaria 10/09/2009 Active Last Documented On 8 11:03AM ; [facility] Encounters Encounter Provider Location Date Check-In Time Check-Out Time Diagnosis DIRECTOR OF PRODUCT MARKETING EXAM ALFONSO LOUIE [facility] GENERAL PRODUCTION MANAGER 7 8:00AM 8:20AM Screening Malig. Neoplasm Rectum,Normal Female Exam Insurance Includes: Active Insurance Policies Plan Name Member ID Group # Subscriber Relationship Effect jackie Dates 1 - [facility] [id number] QUIANA Cronin Clinical Notes Includes: Clinical Notes from this encounter No Clinical Notes Recorded
--- OUTSIDE RECORDS SUMMARY | 2024-11-01 08:25 | XMS_ITS | Clinical Summary ---
Author Organization [facility] Address [address] [place] [address] Phone Care Team Providers Care Clinic Specialist Name Role Phone JULISSA MENDEZ, PEYMAN Elmore Unavailable [phone] Reason for Visit and Chief Complaint gynecologic annual exam - The Chief Complaint is: Annual Problems Includes: Problems addressed during this encounter and other active Problems All Visits Onset Date Resolved Date Provider Condition S tatus Osteopenia 02/28/2014 ALFONSO LOUIE [facility]- Active Last Documented On 12/27/2016 8:01AM ; [facility] Note: DEXA done Plan of Treatment - Follow-up visit 1 year or as needed - Last Documented On 03/01/2019 11:20AM ; [facility] - Clinical summary provided to patient - Last Documented On 03/01/2019 11:20AM ; [facility] Per new ASCCP guidelines, pap was deferred today. This was d/w pt. and pt. is agreeable to this plan. - Last Documented On 03/01/2019 11:20AM ; [facility] Instructions to patient Instructions for patient : B reast Self Exam discussed Last Documented On 9 11:06AM ; [facility] Education and Decision Aids were provided during visit for: Patient Education: Daily lesly cium and vitamin D Last Documented On 9 11:06AM ; [facility] Patient Education: weight be aring exercise Last Documented On 9 11:06AM ; [facility] Assessments Includes: Assessments from this encounter Findings - NORMAL FEMALE EXAM - Last Documented On 03/01/2019 11:20AM ; [facility] - Screening Malig. Neoplasm Rectum - Last Documented On 03/01/2019 11:20AM ; [facility] Instructions Includes: Instructions from this encounter Instructions to patient Instructions for patient : B reast Self Exam discussed Last Documented On 9 11:06AM ; [facility] Education and Decision Aids were provided during visit for: Patient Education: Daily lesly cium and vitamin D Last Documented On 9 11:06AM ; [facility] Patient Education: weight be aring exercise Last Documented On 9 11:06AM ; [facility] Medical Equipment - Implanted Devices Includes: Current Devices No Medical Equipment Recorded Medications Includes: Medications discussed during this encounter and other current Medications Current Medications (continue as prescribed) Adult Aspirin EC Low Strength 81MG Oral Tablet D elayed Release 12/27/2016 Provider: Diagnosis: Last Documented On 12/27/2016 8:10AM By SAL PATEL ; [facility] Biotin 1000MCG Oral Tablet 12/27/2016 Provider: Diagnosis: Last Documented On 12/27/2016 8:10AM By SAL PATEL ; [facility] ZyrTEC Allergy 10 MG Capsule 11/30/2015 Provider: Diagnosis: Last Documented On 11/30/2015 8:48AM By MARISSA CARD CMA ; [facility] Calcium Citrate-Vitamin D 200-125 MG-UNIT Tablet 11/28 Provider: Diagnosis: Last Documented On 5 10:58AM By SAL PATEL ; [facility] Medications Administered Includes: Administered Medications from this encounter No Administered Medications Recorded Vital Signs Includes: Vital Signs from this encounter Vital Name 03/01/2019 11:03A Blood Pressure Sitting L 128/70 BP Cuff Size Regular Height (in) 63 Weight (lb) 153 Body Mass Index (kg/m2) 27.1 Body Surface Area (m2) 1.7 Last Documented: On 03/01/2019 11:09A M ; [facility] Results Includes: Results discussed during this encounter THINPREP TIS AND HPV mRNA E6/E7 [employer] Ordered by ALFONSO SMITH on 03/2017 Collected: 12/27/2016 Reported: 01/03/20 17 11:37 Last Documented On 7 11:59AM ; [facility] Reviewed by ALFONSO MAE CUSTOMER SERVICES SUPERVISOR-BC on 01/02/2017; All test results are final unless otherwise noted. HPV mRNA E6/E7 Not Detected (Not Detected) N (Normal) Last Documented On 7 11:59AM ; [facility] Note: This test was performed using the APTIMA HPV Assay ([employer]This assay detects E6/E7 viral messenger RNA (mRNA) from 14high-risk HPV types (16,18,31,33,35,39,45,51,52,56,58,59,66,68). SOURCE: Cervix, Endocervix N (Normal) Last Documented On 7 11:59AM ; [facility] CLINICAL INFORMATION: Routine exam N (Normal) Last Documented On 7 11:59AM ; [facility] LMP: 2012 N (Normal) Last Documented On 7 11:59AM ; [facility] PREV. PAP: 2013 N (Normal) Last Documented On 7 11:59AM ; [facility] PREV. BX: NONE N (Normal) Last Documented On 7 11:59AM ; [facility] STATEMENT OF ADEQUACY: SATISFACTORY FOR EVALUATION N (Normal) Last Documented On 7 11:59AM ; [facility] INTERPRETATION/RESULT: Negative for intraepithelial lesion or malignancy. Atrophic pattern; predominantly parabasal cells None Last Documented On 7 11:59AM ; [facility] COMMENT: This Pap test has been evaluated with computer assisted technology. N (Normal) Last Documented On 7 11:59AM ; [facility] INSPECTOR PACKAGER: PRIYANK PALACIOS(ASCP) CT screening location: [place] [address] [place] [address] N (Normal) Last Documented On 7 11:59AM ; [facility] History of Present Illness Includes: History of Present Illness from this encounter CASIMIRO REDDING is a 59 year old female. - Medication list reviewed - PRIMARY CARE PROVIDER : Shaye Pimentel Social History Description Last Updated In monogamous relationship 03/01/2019 Last Documented On 9 11:20AM ; [facility] Non-smoker 03/01/2019 Last Documented On 9 11:20AM ; [facility] Not using alcohol 03/01/2019 Last Documented On 9 11:20AM ; [facility] Not using drugs 03/01/2019 Last Documented On 9 11:20AM ; [facility] Sexually active with 1 partners in the l ast year 03/01/2019 Last Documented On 9 11:20AM ; [facility] Social history changed retiring at the e nd of this month 03/01/2019 Last Documented On 9 11:20AM ; [facility] Smoking status : Never smoker 03/01/2019 Last Documented On 9 11:20AM ; [facility] Procedures and Surgical History Includes: Procedures from this encounter Procedures Code Diagnosis Performing Provider Service L ocation Service Date low fat diet Last Documented On 9 11:06AM ; [facility] fecal occult blood test was negative [id number] Last Documented On 9 11:06AM ; [facility] Surgical History Last Updated Surgical / procedural histor y 2 foot surgeries ~gallbladder ~Rt Carpal tunnel ~sinus 01/05/2018 Last Documented On 9 11:01AM ; [facility] History of cholecystectomy 200411/30/19 16 Last Documented On 9 11:01AM ; [facility] Medical History Includes: Medical History addressed during this encounter Description Last Updated No recent change in medical history 02/20 Last Documented On 9 11:20AM ; [facility] History of screening mammogram was perfo rmed 201703/01/2019 Last Documented On 9 11:20AM ; [facility] Result: normal @[facility] 03/01/2019 Last Documented On 9 11:20AM ; [facility] Sexually active 03/01/2019 Last Documented On 9 11:20AM ; [facility] History of a DXA of the late ral lumbar spine was performed 05/31/2016 osteopenia 03/01/2019 Last Documented On 9 11:20AM ; [facility] History of complete colonoscopy 2015 Dr Kulkarni repeat in 201503/01/2019 Last Documented On 9 11:20AM ; [facility] History of Pap smear done 12/27/201602/20 Last Documented On 9 11:20AM ; [facility] Result: normal 03/01/2019 Last Documented On 9 11:20AM ; [facility] 1 11/30/2015 Last Documented On 9 11:01AM ; [facility] History of menopause 2013 11/30/2015 Last Documented On 9 11:01AM ; [facility] LMP: 03/03/2013 11/30/2015 Last Documented On 9 11:01AM ; [facility] Para 1 11/30/2015 Last Documented On 9 11:01AM ; [facility] Family History Includes: Family History addressed during this encounter Description Last Updated Family history unchanged 03/01/2019 Last Documented On 9 11:20AM ; [facility] Maternal history of diabetes mellitus mo ther and sister 03/01/2019 Last Documented On 9 11:20AM ; [facility] Maternal history of family history of he art disease mother and sister 03/01/2019 Last Documented On 9 11:20AM ; [facility] Maternal history of hypertension mother 03/01/2019 Last Documented On 9 11:20AM ; [facility] Maternal history of pure hypercholestero lemia mother 03/01/2019 Last Documented On 9 11:20AM ; [facility] Spouse name: Aida 11/25/2013 Last Documented On 9 11:01AM ; [facility] Family history of Diabetes 10/10/2009 Last Documented On 9 11:01AM ; [facility] Family history of thyroid disease 2009 Last Documented On 9 11:01AM ; [facility] Family medical history of high blood pre ssure 10/10/2009 Last Documented On 9 11:01AM ; [facility] Family medical history of High Cholester ol 10/10/2009 Last Documented On 9 11:01AM ; [facility] Review of Systems Includes: Review of Systems [...] Active Last Documented On 8 11:03AM ; [facility] Encounters Encounter Provider Location Date Check-In Time Check-Out Time Diagnosis ANNUAL BOTTLE LABELER EXAM ALFONSO LOUIE [facility] DOUGHNUT GLAZIER 03/01/20 19 10:58AM 11:21AM Screening Malig. Neoplasm Rectum,Normal Female Exam Insurance Includes: Active Insurance Policies Plan Name Member ID Group # Subscriber Relationship Effect jackie Dates 1 - [facility] [id number] QUIANA REDDING Self Clinical Notes Includes: Clinical Notes from this encounter No Clinical Notes Recorded
--- OUTSIDE RECORDS SUMMARY | 2024-11-01 08:25 | XMS_ITS | Clinical Summary ---
Author Organization [facility] Address [address] [place] [address] Phone Care Team Providers Care Gauge Maker Apprentice Name Role Phone JULISSA MENDEZ, PEYMAN Elmore Unavailable [phone] Reason for Visit and Chief Complaint [Patient Encounter] Problems Includes: Problems addressed during this encounter and other active Problems All Visits Onset Date Resolved Date Provider Condition S tatus Osteopenia 02/28/2014 ALFONSO LOUIE NP-BC Active Last Documented On 12/27/2016 8:01AM ; [facility] Note: DEXA done Plan of Treatment No Plan of Treatment Recorded Assessments Includes: Assessments from this encounter No Assessments Recorded Medical Equipment - Implanted Devices Includes: Current Devices No Medical Equipment Recorded Medications Includes: Medications discussed during this encounter and other current Medications Current Medications (continue as prescribed) Adult Aspirin EC Low Strength 81MG Oral Tablet D elayed Release 12/27/2016 Provider: Diagnosis: Last Documented On 12/27/2016 8:10AM By SAL PATEL ; [facility] Biotin 1000MCG Oral Tablet 12/27/2016 Provider: Diagnosis: Last Documented On 12/27/2016 8:10AM By SAL PATEL ; [facility] ZyrTEC Allergy 10 MG Capsule 11/30/2015 Provider: Diagnosis: Last Documented On 11/30/2015 8:48AM By MARISSA CARD CMA ; [facility] Calcium Citrate-Vitamin D 200-125 MG-UNIT Tablet 11/28 Provider: Diagnosis: Last Documented On 5 10:58AM By SAL PATEL ; [facility] Medications Administered Includes: Administered Medications from this encounter No Administered Medications Recorded Results Includes: Results discussed during this encounter No Results Recorded For Specified Dates History of Present Illness Includes: History of Present Illness from this encounter No History of Present Illness Recorded Social History No Social History Recorded - Smoking Status Unknown Medical History Includes: Medical History addressed during this encounter No Medical History Recorded Family History Includes: Family History addressed during this encounter No Family History Recorded Review of Systems Includes: Review of Systems from this encounter No Review of Systems Recorded Mental Status Includes: Mental Status from this encounter No Mental Status Recorded Functional Status Includes: Functional Status from this encounter No Functional Status Recorded Physical Exam Includes: Physical Exam from this encounter No Physical Exam Recorded Allergies Includes: Active Allergies Substance Type Reaction Onset Date Resolved Date Statu s Sulfa Antibiotics Allergy Skin Rashes / Eruption of skin, Hives / Urticaria 10/09/2009 Active Last Documented On 8 11:03AM ; [facility] Encounters Encounter Provider Location Date Check-In Time Check- Out Time Diagnosis [Patient Encounter] ALFONSO LOUIE [facility] OVERLAY OPERATOR 9 3:58PM 11:59PM Insurance Includes: Active Insurance Policies Plan Name Member ID Group # Subscriber Relationship Effect jackie Dates 1 - [facility] [id number] QUIANA Cronin Clinical Notes Includes: Clinical Notes from this encounter No Clinical Notes Recorded
--- OUTSIDE RECORDS SUMMARY | 2024-11-01 08:25 | XMS_ITS | Clinical Summary ---
Author Organization [facility] [employer] Address [address] [place] [address] Care Team Providers Care Telesales Professional Name Role Phone Shaye Quintero Primary Care Pr ovider Source Comments [facility],non-owned Affiliates and Associated Physician Practices is amultiple site organization consisting of ambulatory clinics and hospital sitesin [place], [place], [place] and [place]. This disclosure is being madepursuant to the Care Everywhere program and may not contain all information available regarding this patient. Last updated 18.[facility] [employer] Allergies Active Allergy Reactions Criticality Noted Date Comments Gluten Meal Headache 01/31/2022 Peanut-Derived Headache 04/29/2023 Sulfa Drugs Rash Medium 06/28/2016 Medications * Be aware that medications may not be up to date on this document. Alwaysverify current medications with the patient. Medication Sig Dispensed Refills Start Date End Date Status Cholecalciferol (VITAMIN D) 50 MCG (1999) capsule Take 1 (one) capsule by mouth once daily Active cetirizine (ZYRTEC) 10 MG tablet Active Lactobacillus (PROBIOTIC ACIDOPHILUS PO) Active levothyroxine (Synthroid) 50 MCG tablet Take 1 (one) tablet by mouth every morning 11/19/2023 Active Active Problems Problem Noted Date Diagnosed Date NAFLD (nonalcoholic fatty liver disease) 022 Overview (05/11/2023): 02/26/23 Fibroscan CAP 262, LSM 8.5 kPa 04/29/23 liver biopsy: no steatosis or fibrosis, minimal iron accumulation mcm Social History Tobacco Use Types Packs/Day Years Used Date Smoking Tobacco: Never Smokeless Tobacco: Never Tobacco Cessation:Counseling Given: Not Answered Alcohol Use Standard Drinks/Week Comments Never 0 (1 standard drink = 0.6 oz pur e alcohol) Sex and Gender Information Value Date Recorded Sex Assigned at Not on file Gender Identity Not on file Sexual Orientation Not on file Last Filed Vital Signs Vital Sign Reading Time Taken Comments Blood Pressure 169/80 07/16/2023 1:54 PM CDT Pulse 98 01/22/2024 12:43 PM CDT Temperature 36.2 C (97.2 F) 01/22/2024 12:43 PM CDT Respiratory Rate 17 04/29/2023 12:00 PM CDT Oxygen Saturation 100% 01/22/2024 12:43 PM CDT Inhaled Oxygen Concentration - - Weight 67.1 kg (148 lb) 01/22/2024 12:43 PM CDT Height 161.3 cm (5' 3.5 ) 01/22/2024 12:43 PM CD T Body Mass Index 25.81 01/22/2024 12:43 PM CDT Plan of Treatment Upcoming Encounters Date Type Department Care Team (Late st Contact Info) Description 01/27/2025 12:00 PM CDT Office Visit [facility] [address] [place] [phone] Lindy Caldwell MD [address] [place] [address] [address] [place] [id number] 01/27/2025 12:30 PM CDT Procedure visit [facility] [address] [place] [phone] Health Maintenance Due Date Last Done Comments BONE DENSITY TESTING 1959 COLOGUARD (AGES 45-75) - COLON CA SCREENING 1959 COLON MONITORING 1959 COLONOSCOPY - COLON CA SCREENING 1959 CT COLONOGRAPHY - COLON CA SCREENING 1959 Colorectal Cancer Screening 1959 FIT - COLON CA SCREENING 1959 FLEX SIG - COLON CA SCREENING 1959 LIPID TESTING 1959 MEDICARE AWV 12 MONTHS 1959 PAP SMEAR 1959 HIV SCREENING 1974 DTAP/TDAP/TD VACCINES (1 - Tdap) 1978 PNEUMOCOCCAL VACCINE 50+ (1 of 1 - PCV) 2009 ZOSTER VACCINE (1 of 2) 2009 MAMMOGRAM 03/23/2021 03/23/2019, 10/2018, 02/05/2018, Additional history exists COVID-19 VACCINE (1 - 2023- season) 2024 INFLUENZA VACCINE (#1) 2024 0, 07/13/2019, 07/10/2018 DEPRESSION SCREENING 09/22/2024 SCREENING FOR DIABETES 01/21/2027 4, 07/16/2023, 04/02/2023, Additional history exists Respiratory Syncytial Virus (RSV) Vaccine Pt: or over 60 yrs (1 - 1-dose 75+ series) 2034 HEPATITIS C SCREENING Completed 01/31/2022 HEPATITIS B VACCINE Aged Out No longe r eligible based on patient's age to complete this topic HIB VACCINE Aged Out No longer eligi ble based on patient's age to complete this topic HPV VACCINE Aged Out No longer eligi ble based on patient's age to complete this topic MENINGOCOCCAL (Group B) VACCINE Aged Out No longer eligible based on patient's age to complete this topic MENINGOCOCCAL VACCINE Aged Out No luis luis eligible based on patient's age to complete this topic Goals Goal Patient Goal Type Associated Problems Recent Progress Patient-Stated? Author Medication Management General On track( 1:26 PM CDT) Swetha Barbosa, RN Note: Expected end date: ongoing Interventions: Take all medications as prescribed Let your doctor know right away about any changes in your medications Make sure to request a refill of your medication at least one week prior to your last dose Safety General On track( 1:26 PM CDT) Swetha Barbosa, RN Note: Expected end date: ongoing Interventions: Your nurse will assess your risk for falls/injury each visit Be aware of medications that could predispose you to falling Wear non-skid/rubber sole footwear Keep personal items within easy reach Use some light at night in your room Procedures Procedure Name Priority Date/Time Associated Diagnosis Comments COMPREHENSIVE METABOLIC PANEL Routine 01/22/2024 2:19 PM CDT 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) HEPATITIS C ANTIBODY Routine 01/31/2022 2:44 PM CDT Abnormal liver enzymes from Last 3 Months or Most Recently Relevant to Health Maintenance Results * (ABNORMAL) COMPREHENSIVE METABOLIC PANEL (01/22/2024 2:19 PM CDT) BUN 21 7 - 26 mg/dL 01/22/2024 3:10 PM [facility] Creatinine 0.76 0.56 - 0.96 mg/dL 01/22/2024 3:10 PM [facility] Sodium 140 136 - 145 mmol/L 01/22/2024 3:10 PM [facility] Potassium 4.1 3.5 - 4.5 mmol/L 01/22/2024 3:10 PM [facility] Chloride 105 98 - 107 mmol/L 01/22/2024 3:10 PM [facility] CO2 25 22 - 29 mmol/L 01/22/2024 3:10 PM [facility] Glucose 97 70 - 115 mg/dL 01/22/2024 3:10 PM [facility] Calcium 10.4(H) 8.4 - 10.2 mg/dL 01/22/2024 3:10 PM [facility] Protein Total 7.6 6.0 - 8.3 g/dL 01/22/2024 3:10 PM [facility] Albumin 4.2 3.4 - 5.0 g/dL 01/22/2024 3:10 PM [facility] Bilirubin Total 0.4 0.2 - 1.2 mg/dL 01/22/2024 3:10 PM [facility] Alkaline Phosphatase 111 40 - 150 U/L 01/22/2024 3:10 PM [facility] ALT 25 5 - 55 U/L 01/22/2024 3:10 PM CDT [facility] AST 26 5 - 34 U/L 01/22/2024 3:10 PM [facility] Anion Gap 10 6 - 16 01/22/2024 3:10 PM [facility] BUN/Creatinine Ratio 28(H) 7 - 23 01/22/2024 3:10 PM T [facility] Osmolality Calculated 293 275 - 295 mOsm/kg 01/22/2024 3:10 PM [facility] Albumin/Globulin Ratio 1.2 1.1 - 2.3 01/22/2024 3:10 PM [facility] eGFR by CKD-EPI 87(L) >=90 mL/min/1.7 3 m2 01/22/2024 3:10 PM [facility] Blood BLOOD SPECIMEN / Unknown Lab Venipuncture / Unknown 01/22/2024 2:19 PM CDT 01/22/2024 2:42 PM CDT Lindy Caldwell MD LAB - CHEMISTRY [facility] [address] [address], [place] [phone] * HEPATITIS C ANTIBODY (01/31/2022 2:44 PM CDT) Pathologist [facility] Hepatitis C Antibody Non-react jackie Non-reac tive 01/31/2022 4:06 PM CDT [facility] Comment:Hepatitis C Antibody screen indicates no serologic evidence of past or current infection with Hepatitis C Virus. Patients with unexplained liver disease who are immunocompromised or suspected of having acute Hepatitis C infection may benefit from Nucleic Acid Test (MICHAEL) for Hepatitis C Viral RNA to confirm Hepatitis C status. Blood BLOOD SPECIMEN / Unknown Lab Venipuncture / Unknown 01/31/2022 2:44 PM CDT 01/31/2022 3:17 PM CDT Lindy Caldwell MD LAB - CHEMISTRY [facility] [address] [address], [place] [phone] from Last 3 Months or Most Recently Relevant to Health Maintenance Care Teams Telesales Professional Relationship Specialty Start Date End Date Shaye Quintero PA [address] [place] [address] [place] [phone] PCP - General Physician Script Worker 06/28/16
--- OUTSIDE RECORDS SUMMARY | 2024-11-01 08:25 | XMS_ITS | Clinical Summary ---
Author Organization [facility] Address [address] [place] [address] Phone Care Team Providers Care Fiber Optics Supervisor Name Role Phone JULISSA MENDEZ, PEYMAN Elmore Unavailable [phone] Reason for Visit and Chief Complaint gynecologic annual exam - The Chief Complaint is: Annual Problems Includes: Problems addressed during this encounter and other active Problems All Visits Onset Date Resolved Date Provider Condition S tatus Osteopenia 02/28/2014 ALFONSO LOUIE [facility]- Active Last Documented On 12/27/2016 8:01AM ; [facility] Note: DEXA done Plan of Treatment - Follow-up visit 1 year or as needed - Last Documented On 01/05/2018 11:11AM ; [facility] - Clinical summary provided to patient - Last Documented On 01/05/2018 11:11AM ; [facility] Per new ASCCP guidelines, pap was deferred today. This was d/w pt. and pt. is agreeable to this plan. - Last Documented On 01/05/2018 11:11AM ; [facility] Instructions to patient Instructions for patient : B reast Self Exam discussed Last Documented On 8 10:56AM ; [facility] Colonoscopy Handout given to patient Last Documented On 8 10:57AM ; [facility] Education and Decision Aids were provided during visit for: Patient Education: Daily lesly cium and vitamin D Last Documented On 8 10:56AM ; [facility] Patient Education: weight be aring exercise Last Documented On 8 10:56AM ; [facility] Assessments Includes: Assessments from this encounter Findings - NORMAL FEMALE EXAM - Last Documented On 01/05/2018 11:11AM ; [facility] - Screening Malig. Neoplasm Rectum - Last Documented On 01/05/2018 11:11AM ; [facility] Instructions Includes: Instructions from this encounter Instructions to patient Instructions for patient : B reast Self Exam discussed Last Documented On 8 10:56AM ; [facility] Colonoscopy Handout given to patient Last Documented On 8 10:57AM ; [facility] Education and Decision Aids were provided during visit for: Patient Education: Daily lesly cium and vitamin D Last Documented On 8 10:56AM ; [facility] Patient Education: weight be aring exercise Last Documented On 8 10:56AM ; [facility] Medical Equipment - Implanted Devices Includes: Current Devices No Medical Equipment Recorded Medications Includes: Medications discussed during this encounter and other current Medications Current Medications (continue as prescribed) Adult Aspirin EC Low Strength 81MG Oral Tablet D elayed Release 12/27/2016 Provider: Diagnosis: Last Documented On 12/27/2016 8:10AM By SAL PATEL ; [facility] Biotin 1000MCG Oral Tablet 12/27/2016 Provider: Diagnosis: Last Documented On 12/27/2016 8:10AM By SAL PATEL ; [facility] ZyrTEC Allergy 10 MG Capsule 11/30/2015 Provider: Diagnosis: Last Documented On 11/30/2015 8:48AM By MARISSA CARD CMA ; [facility] Calcium Citrate-Vitamin D 200-125 MG-UNIT Tablet 11/28 Provider: Diagnosis: Last Documented On 5 10:58AM By SAL PATEL ; [facility] Medications Administered Includes: Administered Medications from this encounter No Administered Medications Recorded Vital Signs Includes: Vital Signs from this encounter Vital Name 01/05/2018 10:59A Blood Pressure Sitting L 130/70 BP Cuff Size Regular Height (in) 63 Weight (lb) 147.8 Body Mass Index (kg/m2) 26.2 Body Surface Area (m2) 1.7 Last Documented: On 01/05/2018 11:01A M ; [facility] Results Includes: Results discussed during this encounter THINPREP TIS AND HPV mRNA E6/E7 [employer] Ordered by ALFONSO SMITH on 03/2017 Collected: 12/27/2016 Reported: 01/03/20 17 11:37 Last Documented On 7 11:59AM ; [facility] Reviewed by ALFONSO NESBITT on 01/02/2017; All test results are final unless otherwise noted. HPV mRNA E6/E7 Not Detected (Not Detected) N (Normal) Last Documented On 7 11:59AM ; [facility] Note: This test was performed using the APTIMA HPV Assay ([employer]This assay detects E6/E7 viral messenger RNA (mRNA) from 14high-risk HPV types (16,18,31,33,35,39,45,51,52,56,58,59,66,68). SOURCE: Cervix, Endocervix N (Normal) Last Documented On 7 11:59AM ; [facility] CLINICAL INFORMATION: Routine exam N (Normal) Last Documented On 7 11:59AM ; [facility] LMP: 2012 N (Normal) Last Documented On 7 11:59AM ; [facility] PREV. PAP: 2013 N (Normal) Last Documented On 7 11:59AM ; [facility] PREV. BX: NONE N (Normal) Last Documented On 11:59AM ; [facility] STATEMENT OF ADEQUACY: SATISFACTORY FOR EVALUATION N (Normal) Last Documented On 7 11:59AM ; [facility] INTERPRETATION/RESULT: Negative for intraepithelial lesion or malignancy. Atrophic pattern; predominantly parabasal cells None Last Documented On 7 11:59AM ; [facility] COMMENT: This Pap test has been evaluated with computer assisted technology. N (Normal) Last Documented On 7 11:59AM ; [facility] BUFFET WAITER/WAITRESS: PRIYANK PALACIOS(ASCP) CT screening location: [place] [address] [place] [address] N (Normal) Last Documented On 7 11:59AM ; [facility] History of Present Illness Includes: History of Present Illness from this encounter HPI QUIANA REDDING is a 57 year old female. - Medication list reviewed - PRIMARY CARE PROVIDER : Viola Kraus - Menopause has occurred Social History Description Last Updated In monogamous relationship 01/05/2018 Last Documented On 8 11:11AM ; [facility] Non-smoker 01/05/2018 Last Documented On 8 11:11AM ; [facility] Not using alcohol 01/05/2018 Last Documented On 8 11:11AM ; [facility] Not using drugs 01/05/2018 Last Documented On 8 11:11AM ; [facility] Sexually active with 1 partners in the l ast year 01/05/2018 Last Documented On 8 11:11AM ; [facility] Social history unchanged 01/05/2018 Last Documented On 8 11:11AM ; [facility] Smoking status : Never smoker 01/05/2018 Last Documented On 8 11:11AM ; [facility] The racial background white 01/05/2018 Last Documented On 8 11:11AM ; [facility] Procedures and Surgical History Includes: Procedures from this encounter Procedures Code Diagnosis Performing Provider Service L ocation Service Date low fat diet Last Documented On 8 10:57AM ; [facility] fecal occult blood test was negative [id number] Last Documented On 8 10:56AM ; [facility] Surgical History Last Updated Surgical / procedural histor y 2 foot surgeries ~gallbladder ~Rt Carpal tunnel ~sinus 01/05/2018 Last Documented On 8 11:11AM ; [facility] History of cholecystectomy 200411/30/19 16 Last Documented On 8 10:57AM ; [facility] Medical History Includes: Medical History addressed during this encounter Description Last Updated Vaginal delivery 01/05/2018 Last Documented On 8 11:11AM ; [facility] No recent change in medical history 12/21 Last Documented On 8 11:11AM ; [facility] Sexually active 01/05/2018 Last Documented On 8 11:11AM ; [facility] History of complete colonoscopy 2015 Dr myers-carlos in 10 years 01/05/2018 Last Documented On 8 11:11AM ; [facility] History of a DXA of the late ral lumbar spine was performed 05/31/2016 osteopenia 01/05/2018 Last Documented On 8 11:11AM ; [facility] History of Pap smear done 12/27/201612/21 Last Documented On 8 11:11AM ; [facility] History of screening mammogram was perfo rmed 01/27/2017 01/05/2018 Last Documented On 8 11:11AM ; [facility] Result: normal 01/05/2018 Last Documented On 8 11:11AM ; [facility] Result: normal 01/05/2018 Last Documented On 8 11:11AM ; [facility] 1 11/30/2015 Last Documented On 8 10:57AM ; [facility] History of menopause 2013 11/30/2015 Last Documented On 8 10:57AM ; [facility] LMP: 03/03/2013 11/30/2015 Last Documented On 8 10:57AM ; [facility] Para 1 11/30/2015 Last Documented On 8 10:57AM ; [facility] Family History Includes: Family History addressed during this encounter Description Last Updated Family history unchanged 01/05/2018 Last Documented On 8 11:11AM ; [facility] Maternal grandmother's history of hypert ension mother 01/05/2018 Last Documented On 8 11:11AM ; [facility] Maternal history of diabetes mellitus mo ther and sister 01/05/2018 Last Documented On 8 11:11AM ; [facility] Maternal history of family history of he art disease mother and sister 01/05/2018 Last Documented On 8 11:11AM ; [facility] Maternal history of pure hypercholestero lemia mother 01/05/2018 Last Documented On 8 11:11AM ; [facility] Spouse name: Aida 11/25/2013 Last Documented On 8 10:57AM ; [facility] Family history of Diabetes 10/10/2009 Last Documented On 8 10:57AM ; [facility] Family history of thyroid disease 2009 Last Documented On 8 10:57AM ; [facility] Family medical history of high blood pre ssure 10/10/2009 Last Documented On 8 10:57AM ; [facility] Family medical history of High Cholester ol 10/10/2009 Last Documented On 8 10:57AM ; [facility] Review of Systems Includes: Review of Systems [...] Active Last Documented On 8 11:03AM ; [facility] Encounters Encounter Provider Location Date Check-In Time Check-Out Time Diagnosis ANNUAL WOOL GROWER EXAM ALFONSO LOUIE [facility] PASS WORKER 01/06/20 18 10:55AM 11:13AM Screening [facility]. Neoplasm Rectum,Normal Female Exam Insurance Includes: Active Insurance Policies Plan Name Member ID Group # Subscriber Relationship Effect jackie Dates 1 - [facility] [id number] QUIANA REDDING Self Clinical Notes Includes: Clinical Notes from this encounter No Clinical Notes Recorded
--- OUTSIDE RECORDS SUMMARY | 2024-11-01 08:25 | XMS_ITS | Data Portability ---
Author Organization [facility] MEGHANNMendoza Address [address] [place] [address] Care Team Providers Care Central Office Associate Name Role Phone SHAYE MEZA Primary Care Provider Unavailab le Assessment No assessment recorded. Plan of Treatment Reminders Order Date Submit Date Provider Last Modified By Organization Details Last Modified Time Details Appointments ANY 15 2024 09:00A M HI Ribeiro Not available Not available Not available Lab lipid panel, serum 2023 024 DOMENICA Jackson, [address], [place], [address], 04/13/2024 12:12:50 BMP, serum or plasma 2023 024 DOMENICA Jackson, [address], [place], [address], 04/13/2024 12:12:52 CBC w/ auto diff 2023 024 DOMENICA Jackson, [address], [place], [address], 04/13/2024 12:12:53 hepatic function panel, serum 2023 024 DOMENICA Jackson, [address], [place], [address], 04/13/2024 12:12:51 TSH + free T4, serum 2023 024 DOMENICA Jackson, [address], [place], [address], 04/13/2024 12:12:51 iron + TIBC + ferritin, serum 2023 024 DOMENICAJONY King, [address], [place], [address], 08/24/2024 08:27:34 CBC w/ auto diff 2023 024 [facility], [address], [place], [address], 08/24/2024 08:27:33 vitamin D, 25-hydrox y, total, serum 2023 024 DOMENICAJONY King, [address], [place], [address], 08/24/2024 08:27:35 lipid panel, serum 2023 024 [facility], [address], [place], [address], 08/24/2024 08:27:30 CMP, serum or plasma 2023 024 DOMENICAJONY King, [address], [place], [address], 08/24/2024 08:27:31 Referral podiatris t referral 2023 024 DOMENICA Sebastian Jr DPM, [address], [address], [place], [address], 12/30/2023 22:20:12 Procedures None recorded. Surgeries None recorded. Imaging MAMMO, screening , digital, bilateral 2023 024 DOMENICA [facility], [address], [place], [address], 10/28/2024 08:17:01 DEXA 2023 024 [facility], [address], [facility] [address], [place], [address], 10/27/2024 18:29:20 Medication Orders Zithromax Z-Lizandro 250 mg tablet 2023 024 [facility] #[id number], [address] [place] [address], [id number], 04/13/2024 13:28:31 rosuvasta tin 5 mg tablet 2023 024 [facility] #[id number], [address] [place] [address], [id number], 05/19/2024 10:45:34 Patient TargetsNo targets recorded. Patient Instructions Encounter Date Encounter Id Patient Instructions Last Modified By Organization Details Last Modified Time 05/19/2024 [id number] advance care planning: care instructions Not available 05/19/2024 10:45:27 preventing falls : care instructions Not available 05/19/2024 10:45:28 Quitting Tobacco : Care Instructions Not available 05/19/2024 10:45:27 Medicare Wellnes s Preventive Checklist Not available 05/19/2024 10:45:28 eating healthy foods: care instructions Not available 05/19/2024 10:45:27 AD8 Dementia Screening Interview Not available 05/19/2024 10:45:27 Reason for Referral Set Up And Lay Out Inspector Referral for Gang lion cyst of left foot Referring Physician: Shaye Meza, Internal Medicine, Encounter Date: 11/17/2023 Results Created Date Observation Date Name Description Value Unit Range Abnormal Flag Note LastModifiedBy Organization Detail LastModifiedTime 04/12/20 24 04/13/2024 LIPID PANEL W/ CHOL/ HDL RATIO cholesterol, total 229 mg/dL 100-19 9 above high normal Not Available [facility] ([facility]) [address] [facility], [place], [address], 04/13/2024 12:12:50 04/12/20 24 04/13/2024 LIPID PANEL W/ CHOL/ HDL RATIO triglyceride s 84 mg/dL 0-149 Not Available [facility] ([facility]) [address] [place], [address], 04/13/2024 12:12:50 04/12/20 24 04/13/2024 LIPID PANEL W/ CHOL/ HDL RATIO HDL cholesterol 61 mg/dL >39 Not Available [facility] ([facility]) [address] [place], [address], 04/13/2024 12:12:50 04/12/20 24 04/13/2024 LIPID PANEL W/ CHOL/ HDL RATIO VLDL cholesterol lesly 15 mg/dL 5-40 Not Available [facility] ([facility]) [address] [place], [address], 04/13/2024 12:12:50 04/12/20 24 04/13/2024 LIPID PANEL W/ CHOL/ HDL RATIO LDL chol calc ([facility]) 153 mg/dL 0-99 above high normal Not Available [facility] ([facility]) [address] [place], [address], 04/13/2024 12:12:50 04/12/20 24 04/13/2024 LIPID PANEL W/ CHOL/ HDL RATIO T. chol/HDL ratio 3.8 ratio 0.0-4. 4 T. Chol/ HDL Ratio Men Women 1/2 Avg.R isk 3.4 3.3 Avg.R isk 5.0 4.4 2X Avg.R isk 9.6 7.1 3X Avg.R isk 23.4 11.0 Not Available [facility] ([facility]) [address] [place], [address], 04/13/2024 12:12:50 04/12/20 24 04/13/2024 TSH+F REE T4 TSH 2.010 uIU/m L 0.450- 4.500 Not Available [facility] ([facility]) [address] [place] [place], [address], 04/13/2024 12:12:51 04/12/20 24 04/13/2024 TSH+F REE T4 T4,free(dire ct) 1.26 NG/dL 0.82-1 .77 Not Available [facility] ([facility]) [address] [place] [place], [address], 04/13/2024 12:12:51 04/12/20 24 04/13/2024 HEPAT IC FUNCT ION PANEL (7) protein, total 6.7 g/dL 6.0-8. 5 Not Available [facility] ([facility]) [address] [place] [place], [address], 04/13/2024 12:12:51 04/12/20 24 04/13/2024 HEPAT IC FUNCT ION PANEL (7) albumin 4.3 g/dL 3.9-4. 9 Not Available [facility] ([facility]) [address] [place] [place], [address], 04/13/2024 12:12:51 04/12/20 24 04/13/2024 HEPAT IC FUNCT ION PANEL (7) bilirubin, total 0.6 mg/dL 0.0-1. 2 Not Available [facility] ([facility]) [address] [place], [address], 04/13/2024 12:12:51 04/12/20 24 04/13/2024 HEPAT IC FUNCT ION PANEL (7) bilirubin, direct 0.15 mg/dL 0.00-0 .40 Not Available [facility] ([facility]) [address] [place] [place], [address], 04/13/2024 12:12:51 04/12/20 24 04/13/2024 HEPAT IC FUNCT ION PANEL (7) alkaline phosphatase 126 IU/L 44-121 above high normal Not Available [facility] ([facility]) [address] [facility], [place], [address], 04/13/2024 12:12:51 04/12/20 24 04/13/2024 HEPAT IC FUNCT ION PANEL (7) AST (SGOT) 27 IU/L 0-40 Not Available [facility] ([facility]) [address] [facility], [place], [address], 04/13/2024 12:12:51 04/12/20 24 04/13/2024 HEPAT IC FUNCT ION PANEL (7) ALT (SGPT) 27 IU/L 0-32 Not Available [facility] ([facility]) [address] [place] [place], [address], 04/13/2024 12:12:51 04/12/20 24 04/13/2024 BMP7+ EGFR glucose 92 mg/dL 70-99 Not Available [facility] ([facility]) [address] [facility], [place], [address], 04/13/2024 12:12:52 04/12/20 24 04/13/2024 BMP7+ EGFR BUN 15 mg/dL 8-27 Not Available [facility] ([facility]) [address] [facility], [place], [address], 04/13/2024 12:12:52 04/12/20 24 04/13/2024 BMP7+ EGFR creatinine 0.70 mg/dL 0.57-1 .00 Not Available [facility] ([facility]) [address] [place] [place], [address], 04/13/2024 12:12:52 04/12/20 24 04/13/2024 BMP7+ EGFR eGFR 96 mL/mi n/1.7 3 >59 Not Available [facility] ([facility]) [address] [place] [place], [address], 04/13/2024 12:12:52 04/12/20 24 04/13/2024 BMP7+ EGFR sodium 140 mmol/ L 134-14 4 Not Available [facility] ([facility]) [address] [place], [address], 04/13/2024 12:12:52 04/12/20 24 04/13/2024 BMP7+ EGFR potassium 4.5 mmol/ L 3.5-5. 2 Not Available [facility] ([facility]) [address] [facility], [place], [address], 04/13/2024 12:12:52 04/12/20 24 04/13/2024 BMP7+ EGFR chloride 102 mmol/ L 96-106 Not Available [facility] ([facility]) [address] [facility], [place], [address], 04/13/2024 12:12:52 04/12/20 24 04/13/2024 BMP7+ EGFR carbon dioxide, total 24 mmol/ L 20-29 Not Available [facility] ([facility]) [address] [place], [address], 04/13/2024 12:12:52 04/12/20 24 04/13/2024 CBC WITH DIFFE RENTI AL/PL ATELE T WBC 4.8 x10e3 /uL 3.4-10 .8 Not Available [facility] ([facility]) [address] [place], [address], 04/13/2024 12:12:52 04/12/20 24 04/13/2024 CBC WITH DIFFE RENTI AL/PL ATELE T RBC 4.52 x10e6 /uL 3.77-5 .28 Not Available [facility] ([facility]) [address] [place], [address], 04/13/2024 12:12:52 04/12/20 24 04/13/2024 CBC WITH DIFFE RENTI AL/PL ATELE T hemoglobin 14.4 g/dL 11.1-1 5.9 Not Available [facility] ([facility]) [address] [facility], [place], [address], 04/13/2024 12:12:52 04/12/20 24 04/13/2024 CBC WITH DIFFE RENTI AL/PL ATELE T hematocrit 42.7 % 34.0-4 6.6 Not Available [facility] ([facility]) [address] [place], [address], 04/13/2024 12:12:52 04/12/20 24 04/13/2024 CBC WITH DIFFE RENTI AL/PL ATELE T MCV 95 fL 79-97 Not Available [facility] ([facility]) [address] [place], [address], 04/13/2024 12:12:52 04/12/20 24 04/13/2024 CBC WITH DIFFE RENTI AL/PL ATELE T MCH 31.9 pg 26.6-3 3.0 Not Available [facility] ([facility]) [address] [facility], [place], [address], 04/13/2024 12:12:52 04/12/20 24 04/13/2024 CBC WITH DIFFE RENTI AL/PL ATELE T MCHC 33.7 g/dL 31.5-3 5.7 Not Available [facility] ([facility]) [address] [place], [address], 04/13/2024 12:12:52 04/12/20 24 04/13/2024 CBC WITH DIFFE RENTI AL/PL ATELE T RDW 12.8 % 11.7-1 5.4 Not Available [facility] ([facility]) [address] [place], [address], 04/13/2024 12:12:52 04/12/20 24 04/13/2024 CBC WITH DIFFE RENTI AL/PL ATELE T platelets 254 x10e3 /uL 150-45 0 Not Available [facility] ([facility]) [address] [place], [address], 04/13/2024 12:12:52 04/12/20 24 04/13/2024 CBC WITH DIFFE RENTI AL/PL ATELE T neutrophils 52 % notest ab. Not Available [facility] ([facility]) [address] [facility], [place], [address], 04/13/2024 12:12:52 04/12/20 24 04/13/2024 CBC WITH DIFFE RENTI AL/PL ATELE T lymphs 32 % notest ab. Not Available [facility] ([facility]) [address] [facility], [place], [address], 04/13/2024 12:12:52 04/12/20 24 04/13/2024 CBC WITH DIFFE RENTI AL/PL ATELE T monocytes 12 % notest ab. Not Available [facility] ([facility]) [address] [facility], [place], [address], 04/13/2024 12:12:52 04/12/20 24 04/13/2024 CBC WITH DIFFE RENTI AL/PL ATELE T eos 2 % notest ab. Not Available [facility] ([facility]) [address] [facility], [place], [address], 04/13/2024 12:12:52 04/12/20 24 04/13/2024 CBC WITH DIFFE RENTI AL/PL ATELE T basos 2 % notest ab. Not Available [facility] ([facility]) [address] [facility], [place], [address], 04/13/2024 12:12:52 04/12/20 24 04/13/2024 CBC WITH DIFFE RENTI AL/PL ATELE T neutrophils (absolute) 2.5 x10e3 /uL 1.4-7. 0 Not Available [facility] ([facility]) [address] [facility], [place], [address], 04/13/2024 12:12:52 04/12/20 24 04/13/2024 CBC WITH DIFFE RENTI AL/PL ATELE T lymphs (absolute) 1.5 x10e3 /uL 0.7-3. 1 Not Available [facility] ([facility]) [address] [facility], [place], [address], 04/13/2024 12:12:52 04/12/20 24 04/13/2024 CBC WITH DIFFE RENTI AL/PL ATELE T monocytes(ab solute) 0.6 x10e3 /uL 0.1-0. 9 Not Available [facility] ([facility]) [address] [facility], [place], [address], 04/13/2024 12:12:52 04/12/20 24 04/13/2024 CBC WITH DIFFE RENTI AL/PL ATELE T eos (absolute) 0.1 x10e3 /uL 0.0-0. 4 Not Available [facility] ([facility]) [address] [facility], [place], [address], 04/13/2024 12:12:52 04/12/20 24 04/13/2024 CBC WITH DIFFE RENTI AL/PL ATELE T baso (absolute) 0.1 x10e3 /uL 0.0-0. 2 Not Available [facility] ([facility]) [address] [facility], [place], [address], 04/13/2024 12:12:52 04/12/20 24 04/13/2024 CBC WITH DIFFE RENTI AL/PL ATELE T immature granulocytes 0 % notest ab. Not Available [facility] ([facility]) [address] [place], [address], 04/13/2024 12:12:52 04/12/20 24 04/13/2024 CBC WITH DIFFE RENTI AL/PL ATELE T immature grans (abs) 0.0 x10e3 /uL 0.0-0. 1 Not Available [facility] ([facility]) [address] [facility], [place], [address], 04/13/2024 12:12:52 08/23/20 24 08/24/2024 LIPID PANEL cholesterol, total 168 mg/dL 100-19 9 Not Available [facility] ([facility]) [address] [place] [place], [address], 08/24/2024 08:27:30 08/23/20 24 08/24/2024 LIPID PANEL triglyceride s 67 mg/dL 0-149 Not Available [facility] ([facility]) [address] [place] [place], [address], 08/24/2024 08:27:30 08/23/20 24 08/24/2024 LIPID PANEL HDL cholesterol 59 mg/dL >39 Not Available [facility] ([facility]) [address] [place] [place], [address], 08/24/2024 08:27:30 08/23/20 24 08/24/2024 LIPID PANEL VLDL cholesterol lesyl 13 mg/dL 5-40 Not Available [facility] ([facility]) [address] [place] [place], [address], 08/24/2024 08:27:30 08/23/20 24 08/24/2024 LIPID PANEL LDL chol calc ([facility]) 96 mg/dL 0-99 Not Available [facility] ([facility]) [address] [place], [address], 08/24/2024 08:27:30 08/23/20 24 08/24/2024 COMP. METAB OLIC PANEL (14) glucose 98 mg/dL 70-99 Not Available [facility] ([facility]) [address] [place] [place], [address], 08/24/2024 08:27:31 08/23/20 24 08/24/2024 COMP. METAB OLIC PANEL (14) BUN 14 mg/dL 8-27 Not Available [facility] ([facility]) [address] [place], [address], 08/24/2024 08:27:31 08/23/20 24 08/24/2024 COMP. METAB OLIC PANEL (14) creatinine 0.72 mg/dL 0.57-1 .00 Not Available [facility] ([facility]) [address] [place], [address], 08/24/2024 08:27:31 08/23/20 24 08/24/2024 COMP. METAB OLIC PANEL (14) eGFR 93 mL/mi n/1.7 3 >59 Not Available [facility] ([facility]) [address] [place], [address], 08/24/2024 08:27:31 08/23/20 24 08/24/2024 COMP. METAB OLIC PANEL (14) BUN/creatini ne ratio 19 12-28 Not Available [facility] ([facility]) [address] [facility], [place], [address], 08/24/2024 08:27:31 08/23/20 24 08/24/2024 COMP. METAB OLIC PANEL (14) sodium 131 mmol/ L 134-14 4 below low normal Not Available [facility] ([facility]) [address] [place], [address], 08/24/2024 08:27:31 08/23/20 24 08/24/2024 COMP. METAB OLIC PANEL (14) potassium 4.2 mmol/ L 3.5-5. 2 Not Available [facility] ([facility]) [address] [place], [address], 08/24/2024 08:27:31 08/23/20 24 08/24/2024 COMP. METAB OLIC PANEL (14) chloride 102 mmol/ L 96-106 Not Available [facility] ([facility]) [address] [place] [place], [address], 08/24/2024 08:27:31 08/23/20 24 08/24/2024 COMP. METAB OLIC PANEL (14) carbon dioxide, total 25 mmol/ L 20- Not Available [facility] ([facility]) [address] [place], [address], 08/24/2024 08:27:31 08/23/20 24 08/24/2024 COMP. METAB OLIC PANEL (14) calcium 9.4 mg/dL 8.7-10 .3 Not Available [facility] ([facility]) [address] [place], [address], 08/24/2024 08:27:31 08/23/20 24 08/24/2024 COMP. METAB OLIC PANEL (14) protein, total 6.8 g/dL 6.0-8. 5 Not Available [facility] ([facility]) [address] [place], [address], 08/24/2024 08:27:31 08/23/20 24 08/24/2024 COMP. METAB OLIC PANEL (14) albumin 4.3 g/dL 3.9-4. 9 Not Available [facility] ([facility]) [address] [place], [address], 08/24/2024 08:27:31 08/23/20 24 08/24/2024 COMP. METAB OLIC PANEL (14) globulin, total 2.5 g/dL 1.5-4. 5 Not Available [facility] ([facility]) [address] [place], [address], 08/24/2024 08:27:31 08/23/20 24 08/24/2024 COMP. METAB OLIC PANEL (14) bilirubin, total 0.5 mg/dL 0.0-1. 2 Not Available [facility] ([facility]) [address] [place], [address], 08/24/2024 08:27:31 08/23/20 24 08/24/2024 COMP. METAB OLIC PANEL (14) alkaline phosphatase 112 IU/L 44-121 Not Available [facility] ([facility]) [address] [facility], [place], [address], 08/24/2024 08:27:31 08/23/20 24 08/24/2024 COMP. METAB OLIC PANEL (14) AST (SGOT) 26 IU/L 0-40 Not Available [facility] ([facility]) [address] [facility], [place], [address], 08/24/2024 08:27:31 08/23/20 24 08/24/2024 COMP. METAB OLIC PANEL (14) ALT (SGPT) 29 IU/L 0-32 Not Available [facility] ([facility]) [address] [facility], [place], [address], 08/24/2024 08:27:31 08/23/20 24 08/24/2024 CBC WITH DIFFE RENTI AL/PL ATELE T WBC 5.9 x10e3 /uL 3.4-10 .8 Not Available [facility] ([facility]) [address] [facility], [place], [address], 08/24/2024 08:27:33 08/23/20 24 08/24/2024 CBC WITH DIFFE RENTI AL/PL ATELE T RBC 4.57 x10e6 /uL 3.77-5 .28 Not Available [facility] ([facility]) [address] [facility], [place], [address], 08/24/2024 08:27:33 08/23/20 24 08/24/2024 CBC WITH DIFFE RENTI AL/PL ATELE T hemoglobin 14.4 g/dL 11.1-1 5.9 Not Available [facility] ([facility]) [address] [facility], [place], [address], 08/24/2024 08:27:33 08/23/20 24 08/24/2024 CBC WITH DIFFE RENTI AL/PL ATELE T hematocrit 43.5 % 34.0-4 6.6 Not Available [facility] ([facility]) [address] [facility], [place], [address], 08/24/2024 08:27:33 08/23/20 24 08/24/2024 CBC WITH DIFFE RENTI AL/PL ATELE T MCV 95 fL 79-97 Not Available [facility] ([facility]) [address] [facility], [place], [address], 08/24/2024 08:27:33 08/23/20 24 08/24/2024 CBC WITH DIFFE RENTI AL/PL ATELE T MCH 31.5 pg 26.6-3 3.0 Not Available [facility] ([facility]) [address] [facility], [place], [address], 08/24/2024 08:27:33 08/23/20 24 08/24/2024 CBC WITH DIFFE RENTI AL/PL ATELE T MCHC 33.1 g/dL 31.5-3 5.7 Not Available [facility] ([facility]) [address] [facility], [place], [address], 08/24/2024 08:27:33 08/23/20 24 08/24/2024 CBC WITH DIFFE RENTI AL/PL ATELE T RDW 12.6 % 11.7-1 5.4 Not Available [facility] ([facility]) [address] [facility], [place], [address], 08/24/2024 08:27:33 08/23/20 24 08/24/2024 CBC WITH DIFFE RENTI AL/PL ATELE T platelets 292 x10e3 /uL 150-45 0 Not Available [facility] ([facility]) [address] [facility], [place], [address], 08/24/2024 08:27:33 08/23/20 24 08/24/2024 CBC WITH DIFFE RENTI AL/PL ATELE T neutrophils 51 % notest ab. Not Available [facility] ([facility]) [address] [facility], [place], [address], 08/24/2024 08:27:33 08/23/20 24 08/24/2024 CBC WITH DIFFE RENTI AL/PL ATELE T lymphs 33 % notest ab. Not Available [facility] ([facility]) [address] [facility], [place], [address], 08/24/2024 08:27:33 08/23/20 24 08/24/2024 CBC WITH DIFFE RENTI AL/PL ATELE T monocytes 11 % notest ab. Not Available [facility] ([facility]) [address] [facility], [place], [address], 08/24/2024 08:27:33 08/23/20 24 08/24/2024 CBC WITH DIFFE RENTI AL/PL ATELE T eos 3 % notest ab. Not Available [facility] ([facility]) [address] [facility], [place], [address], 08/24/2024 08:27:33 08/23/20 24 08/24/2024 CBC WITH DIFFE RENTI AL/PL ATELE T basos 2 % notest ab. Not Available [facility] ([facility]) [address] [facility], [place], [address], 08/24/2024 08:27:33 08/23/20 24 08/24/2024 CBC WITH DIFFE RENTI AL/PL ATELE T neutrophils (absolute) 3.0 x10e3 /uL 1.4-7. 0 Not Available [facility] ([facility]) [address] [facility], [place], [address], 08/24/2024 08:27:33 08/23/20 24 08/24/2024 CBC WITH DIFFE RENTI AL/PL ATELE T lymphs (absolute) 1.9 x10e3 /uL 0.7-3. 1 Not Available [facility] ([facility]) [address] [facility], [place], [address], 08/24/2024 08:27:33 08/23/20 24 08/24/2024 CBC WITH DIFFE RENTI AL/PL ATELE T monocytes(ab solute) 0.7 x10e3 /uL 0.1-0. 9 Not Available [facility] ([facility]) [address] [facility], [place], [address], 08/24/2024 08:27:33 08/23/20 24 08/24/2024 CBC WITH DIFFE RENTI AL/PL ATELE T eos (absolute) 0.2 x10e3 /uL 0.0-0. 4 Not Available [facility] ([facility]) [address] [facility], [place], [address], 08/24/2024 08:27:33 08/23/20 24 08/24/2024 CBC WITH DIFFE RENTI AL/PL ATELE T baso (absolute) 0.1 x10e3 /uL 0.0-0. 2 Not Available [facility] ([facility]) [address] [facility], [place], [address], 08/24/2024 08:27:33 08/23/20 24 08/24/2024 CBC WITH DIFFE RENTI AL/PL ATELE T immature granulocytes 0 % notest ab. Not Available [facility] ([facility]) [address] [facility], [place], [address], 08/24/2024 08:27:33 08/23/20 24 08/24/2024 CBC WITH DIFFE RENTI AL/PL ATELE T immature grans (abs) 0.0 x10e3 /uL 0.0-0. 1 Not Available [facility] ([facility]) [address] [facility], [place], [address], 08/24/2024 08:27:33 08/23/20 24 08/24/2024 FE+TI BC+FE R iron bind.cap.(TI BC) 260 ug/dL 250-45 0 Not Available [facility] ([facility]) [address] [facility], [place], [address], 08/24/2024 08:27:34 08/23/20 24 08/24/2024 FE+TI BC+FE R UIBC 124 ug/dL 118-36 9 Not Available [facility] ([facility]) [address] [facility], [place], [address], 08/24/2024 08:27:34 08/23/20 24 08/24/2024 FE+TI BC+FE R iron 136 ug/dL 27-139 Not Available [facility] ([facility]) [address] [facility], [place], [address], 08/24/2024 08:27:34 08/23/20 24 08/24/2024 FE+TI BC+FE R iron saturation 52 % 15-55 Not Available [facility] ([facility]) [address] [facility], [place], [address], 08/24/2024 08:27:34 08/23/20 24 08/24/2024 FE+TI BC+FE R ferritin 271 NG/mL 15-150 above high normal Not Available [facility] ([facility][1[facility]) [address] [place], [address], 08/24/2024 08:27:34 08/23/20 24 08/24/2024 VITAM IN D, 25-HY DROXY vitamin D, 25-hydroxy 75.6 NG/mL 30.0-1 00.0 Vitam in D defic iency has been defin ed by the Insti nancy of Medic ine and an Endoc rine Socie ty pract ice guide line as a level of serum 25-OH vitam in D less than 20 ng/mL (1,2) . The Endoc rine Socie ty went on to furth er defin e vitam in D insuf ficie ncy as a level betwe en 21 and 29 ng/mL (2). 1. IOM (Inst itute of Medic ine). 2010. Dieta ry refer ence gary es for calci um and D. Wilmer murrieta [place]: [facility] . 2. Zenon k [place], Binkl ey [place], Bisch off-F errar i CHAND, et al. Evalu ation , treat ment, and preve ntion of vitam in D defic iency : an Endoc rine Socie ty clini lesly pract ice guide line. JCEM. 2010; 96(7) :1911 -30. Not Available [facility] ([facility][1] [facility]) [address] [facility], [place], [address], 08/24/2024 08:27:35 06/18/20 24 06/18/2024 XR, foot No observ ation record ed. [facility] [address], [place], [address], 06/19/2024 20:47:35 Result Notes None recorded. Problems Name Problem SNOMED Code Status Onset Date Resolution Date Notes Provider Name and Address Organization Details Recorded Time Hypothyroidism 94365512 Active 2023 Luz davis, [place] - [facility] 4 11:11:12 Body mass index 25-29 - overweight 851936559 Active 2023 Luz davis, [place] - [facility] 4 09:28:10 Hereditary hemochromatosi s 89741998 Active 2023 HI Ribeiro Attn: Thomas michel,[address] [facility], [place], [address], [place] - [facility] 4 10:31:26 Vitamin D below reference range 371739855 Active 2023 HI Ribeiro Attn: Thomas michel,[address] [facility], [place], [address], [place] - [facility] 4 00:23:22 Hyperlipidemia 85148793 Active 2023 HI Ribeiro Attn: Thomas michel,[address], [place], [address], [facility] 00:23:41 Problem Notes None recorded. Procedures Surgical History Date Name Laterality Status Provider Name and Address Organization Details Recorded Time 06/18/20 [facility] 15:23:01 chole[place]ectomy [place] Luz Pradhan [place] 11/17/2023 11:59:39 Breast reduction [place] Luz Pradhan [place] 11/17/2023 11:59:48 Orthopedic surgery ss [place] Luz Pradhan [place] 11/17/2023 12:00:25 Carpal tunnel surgery completed Luz [facility] - [facility] 11/17/2023 12:00:31 Imaging Results Imaging Date Name Status LastModified by Organiz ation Details LastModified Time 06/18/2024 XR, foot completed [facility] [address], [address], 06/19/2024 20:47:35 Procedure Notes None recorded. Medical Equipment None Reported. Allergies Allergen ID Allergen Name Allergen Category Reaction Reaction Severity Criticality Documentation Date Start Date Code Code System Note Provider Name and Address Organization Details Recorded Time [id number] Substance with sulfonami de structure and antibacte rial mechanism of action (substanc e) medicatio n rash Not available Not available 11/17/2023 16235 [id number] SNOMED Not Available Not Available Not Available Medications Name Sig Start Date Stop Date Status Note LastModified by Organization Details LastModified Time azithromyci n 250 mg tablet TK 2 TS PO ON DAY 1, THEN TK 1 T PO D FOR 4 DAYS active Not Available Not Available No t Available oxycodone-a cetaminophe n 5 mg-325 mg tablet TAKE 1 TABLET BY MOUTH EVERY 4 TO 6 HOURS NEEDED FOR PAIN active Not Available Not Available No t Available imiquimod 5 % topical cream packet APPLY CREAM TOPCIALLY TO AFFECTED AREA ONCE DAILY FOR 14 DAYS active Not Available Not Available No t Available levothyroxi ne 50 mcg tablet TAKE 1 TABLET BY MOUTH DAILY active Not Available Not Available No t Available methylpredn isolone 4 mg tablets in a dose pack FOLLOW PACKAGE DIRECTION S 11/17 completed Not Available Not Available Not Available rosuvastati n 5 mg tablet TAKE 1 TABLET BY MOUTH EVERY DAY IN THE EVENING 2024 active Not Available Not Available Not Avai lable Xarelto 10 mg tablet TAKE 1 TABLET BY MOUTH DAILY DIRECTED active Not Available Not Available No t Available Vitamin D2 daily OTC active Not Available Not Available Not Available Vitals Date Recorded Body height Body mass index (BMI) Body weight Heart rate Respiratory rate Systolic blood pressure Diastolic blood pressure Provider Name and Address Organization Details Last Updated DateTime 4 160.02 cm 26.5 kg/m2 44641.1 4 g 102 /min 16 /min 154 mm[Hg] 94 mm[Hg] Luz Pradhan [facility] 4 11:16:14 Date Recorded Systolic blood pressure Diastolic blood pressure Provider Name and Address Organization Details Last Updated DateTime 11/17/2023 140 mm[Hg] 78 mm[Hg] HI Ribeior Attn: Accounting[address] [place], [address], [facility] 11/17/2023 11:48:12 Date Recorded Body height Oxygen saturation Oxygen saturation in Arterial blood by Pulse oximetry Respiratory rate Heart rate Body mass index (BMI) Body weight Systolic blood pressure Diastolic blood pressure Provider Name and Address Organization Details Last Updated DateTime 4 160.02 cm 96 % 96 % 18 /min 66 /min 25.8 kg/m2 99743.0 5 g 132 mm[Hg] 78 mm[Hg] Reynaldo Restrepo MA [facility] 4 14:18:58 Date Recorded Body height Respiratory rate Body mass index (BMI) Body weight Oxygen saturation Oxygen saturation in Arterial blood by Pulse oximetry Heart rate Systolic blood pressure Diastolic blood pressure Provider Name and Address Organization Details Last Updated DateTime 4 160.02 cm 18 /min 26.5 kg/m2 98117.7 8 g 96 % 96 % 88 /min 136 mm[Hg] 88 mm[Hg] Reynaldo Restrepo MA [facility] 4 10:06:40 Date Recorded Systolic blood pressure Diastolic blood pressure Provider Name and Address Organization Details Last Updated DateTime 05/19/2024 130 mm[Hg] 80 mm[Hg] HI Ribeiro Attn: Accounting[address] [facility], [place], [address], [facility] 05/19/2024 10:44:58 Social History Question Answer Notes LastModified by Organizat ion Details LastModified Time Tobacco Smoking Status Never Smoker Luz davis, [facility] 11/17/2023 11:17:31 Do You Have An Advance Directive? Yes Information not available 11/17/2023 What Is Your Level Of Alcohol Consumption? None [email or web address] Information not available 11/17/2023 Are You Blind Or Do You Have Difficulty Seeing? Yes Glasses [email or web address] Information not available 11/17/2023 What Is Your Level Of Caffeine Consumption? Occasional Information not available 11/17/2023 In The 14 Days Before Symptom Onset, Have You Had Close Contact With A Laboratory-confir med COVID-19 While That Case Was Ill? No [email or web address] Information not available 11/17/2023 In The 14 Days Before Symptom Onset, Have You Had Close Contact With A Person Who Is Under Investigation For COVID-19 While That Person Was Ill? No [email or web address] Information not available 11/17/2023 Have You Been To An Area Known To Be High Risk For COVID-19? No [email or web address] Information not available 11/17/2023 Are You Currently Employed? No [email or web address] Information not available 11/17/2023 Are You Deaf Or Do You Have Serious Difficulty Hearing? No [email or web address] Information not available 11/17/2023 What Type Of Diet Are You Following? REGULAR [email or web address] Information not available 11/17/2023 Are There Any Guns Present In Your Home? Yes [email or web address] Information not available 11/17/2023 In The Past 7 Days, How Many Days Did You Exercise? 6 [email or web address] Information not available 05/19/2024 On The Days When You Exercised, How Long Did You Exercise Each Day (in Minutes)? 60 [email or web address] Information not available 05/19/2024 How Intense Was Your Typical Exercise? Moderate (brisk Walking) [email or web address] Information not available 05/19/2024 In The Past 7 Days, How Much Pain Have You [place]? Some [email or web address] Information not available 05/19/2024 In General, Would You Say You Health Is: Very Good [email or web address] Information not available 05/19/2024 How Would You Describe The Condition Of Your Mouth And Teeth- Including False Teeth Or Dentures? Very Good [email or web address] Information not available 05/19/2024 Each Night, How Many Hours Of Sleep Do You Get? 6 [email or web address] Information no t available 05/19/2024 Has Anyone Ever Told You That You Snore? No [email or web address] Information not available 05/19/2024 In The Past 7 Days, How Often Have You [place] Sleepy In The Daytime? Sometimes [email or web address] Information not available 05/19/2024 # Alcohol Drinks Per Week None [email or web address] Information not available 05/19/2024 What Was The Date Of Your Most Recent Tobacco Screening? 05/19/2024 Information not available 05/19/2024 What Is Your Relationship Status? [email or web address] Information not available 11/17/2023 Do You Use Your Seat Belt Or Car Seat Routinely? Yes [email or web address] Information not available 11/17/2023 Do You Have Smoke And Carbon Monoxide Detectors In Your Home? Yes [email or web address] Information not available 11/17/2023 Do You Use Any Illicit Or Recreational Drugs? No [email or web address] Information not available 11/17/2023 Do You Use Sunscreen Routinely? Yes [email or web address] Information not available 11/17/2023 Has Tobacco Cessation Counseling Been Provided? Yes Information not available 02/06/2024 On What Date Was Tobacco Cessation Counseling Provided? 05/19/2024 Information not available 05/19/2024 Do You Or Have You Ever Used Any Other Forms Of Tobacco Or Nicotine? No [email or web address] Information not available 11/17/2023 Sex: Female Functional Status Question Answer Note LastModified by Organization D etails LastModified Time Are you able to care for yourself? Yes [email or web address] Information not available 11/17/2023 What is your exercise level? Moderate [email or web address] Information not available 11/17/2023 Mental Status None recorded. Family History Relationship Description Onset Age of this Age Resolved Age Notes LastModified by Organization Details LastModified Time Mother Diabetes mellitus [email or web address] Not available 11/17 11:17:04 Mother Myocardial infarction [email or web address] Not available 10/24 11:17:14 Medical History Condition Response Coronary Artery Disease N Atrial Fibrillation N High Blood Pressure N Thyroid Problems Y Kidney or Bladder Problems N GI Problems N COPD N Blood Clots N Have you had a mammogram in the last yea r? N Skin Problems N Anemia N Heart Attack (NH) N Anxiety Disorder N Seizures/Epilepsy N Acid Reflux (GERD) N Stroke N Allergies N Asthma N Have you had a PSA blood test in the las t year? N Hepatitis N Liver Disease N Headaches N Osteoporosis N Heart Failure N Gynecological History Statement/Question Response Menses Monthly N Current Control Method Other Obstetrics History GPAL:G 0 P 0 0 0 0 Immunizations Vaccine Type Date Status Note Provider Nam e and Address Organization Details Recorded Time zoster recombinant 10/31/2023 completed Luz [place] [facility] 05/19/2024 09:27:30 zoster recombinant 08/26/2023 [place] [facility] 05/19/2024 09:27:30 COVID-19 vaccine, vector-nr, rS-Ad26, PF, 0.5 mL 12/20/2020 [place] [facility] 05/19/2024 09:27:30 Past Encounters Encounter ID Performer Location Encounter Start Date Encounter Closed Date Diagnosis/Indication Diagnosis SNOMED-CT Code Diagnosis ICD10 Code Diagnosis Note [id number] HI Ribeiro [facility] [address] [place] [address] 11/17/2023 11:08:15 11/17/2023 11:58:00 Hypothyroidism 07201019 E03.9 stable on thyroid supplement . levothyrox ine 50mcg daily. labs recently are in good range. Ganglion c yst of left foot 3982918610 021439 M67.472 refer to critical care technician that her has seen for evaluation of her ganglion cyst in left foot. Long-term drug therapy 369812885 Z79.899 routine bmp, cbc and lft panels due in february. Hyperlipid emia screening 390313945 Z13.220 fasting lipid panel due in february. [id number] HI Ribeiro [facility] [place] [address] [place] [address] 02/06/2024 14:00:37 02/06/2024 15:10:34 Acute sinusitis 08453491 J01.90 start zpack therapy, continue OTC antihistam ine and decongesta nt [id number] HI Ribeiro [facility] [place] [address] [place] [address] 05/19/2024 09:56:10 05/19/2024 10:54:23 Adult health examination 858853373 Z00.00 Health Risk Assessment collected and reviewed Screening mammography 24 189983 Z12.31 Annual mammogram is due Screening for osteoporosis 806606832 Z13.820 DEXA scan is due Hereditary hemochromatosis 66262557 E83.110 Patient has seen Hematology and may given another phlebotomy in upcoming weeks. Repeat iron studies and CBC in July Hypothyroidism 25361693 E03.9 stable on thyroid supplement . levothyrox ine 50mcg daily. labs recently are in good range. Hyperlipidemia 39944329 E78.5 Start low-dose rosuvastat in 5 mg daily and check repeat lipid and CMP in July fasting. Vitamin D below reference range 589301108 E55.9 Vitamin-D updated lab is due in July Postmenopausal state 764 21893 Z78.0 Health Concerns Section Related Observation LastModified by Organization Detai ls LastModified Time None Recorded Concern Status LastModified by Organization Details LastModified Time None Recorded Advance Directives Directive Y: Payers Encounter Date Sequence Insurance Name Policy Number Policy Saunders Covered Member ID Saunders Member ID Guarantor Name 11/17/2023 1 [id number] Rosa Sales [id number] Rosa Sales 02/06/2024 1 [place] Rosa Sales [id number] Rosa Sales 02/06/2024 2 [employer] (MEDICARE SUPPLEMENT) Rosa Sales [id number] Rosa Sales 05/19/2024 1 [place] Sales [id number] Rosa Sales 05/19/2024 2 [employer] (MEDICARE SUPPLEMENT) Rosa Boateng [id number] Rosa Boateng Notes Date Note Type Note Provider Name and Address Organization Details Recorded Time 11/17/2023 text/html ThyroidReported bypatient.Quality:not changing Duration:constant Onset/Timing:still present Context:normal thyroid levels; no history of head or neck radiation during childhood; no history of thyroid disease; no history of hypothyroidism; no excess iron exposure;history of hypothyroidism Modifying Factors:medication Exercisegets exercise Associated Symptoms:no cold intolerance; no heat intolerance; no weight loss; no weight gain; no double vision; no dry eyes; no hoarseness; no difficulty swallowing; no neck masses; no deepening of the voice; no fast heart rate; no increased blood pressure; no palpitations; no chest pain; no chest tightess or pressure; no constipation; no diarrhea; no vomiting; no decreased appetite; no loose stools; no irregular menstrual periods; no excessive sweating; no joint pain; no numbness; no tingling of the hands or feet; no dry skin; no tremor; no nervousness; no anxiety; no depression; no fatigue; no sleep difficulties; no skin changes; no hair changesNotes:Tsh: 2.070 Free T4: 1.33 on recent labs HI Ribeiro Attn: Accounting[address] [place], [address], [facility] 11/18/2023 19:24:24 02/06/2024 text/html Sinusitis/Allerg yRepo rted bypatient.Location:[facility]; [facility] Associated Symptoms:nasal discharge from nostrils;facial pain;sinus pain Quality:dull;congeste d Prior Treatmentoral decongestant HI Ribeiro Attn: Accounting[address] [place], [address], [facility] 02/22/2024 22:29:44 05/19/2024 text/html MAW 2Reported bypatient.Diet and Nutrition:healthy diet; Takes Vit D OTC Fracture Risk:no sudden unexplained fractures;history of fractures; fractured R elbow Concentration and Memory:no decreased concentrating ability; no memory lapses or loss; does not forget words Speech/Motor difficulties:no speech difficulties; no difficulty expressing formulated concepts; no difficulty with fine manipulative tasks; no difficulty writing/copying; no slowed reaction time; does not knock things over when trying to pick them up Hearing:no loss of hearing Vision:worse both distance and near; wears glasses Activities of Daily Living:able to bathe with limited or no assistance; able to contol urination and bowels; able to dress with limited or no assistance; able to feed self with limited or no assistance; able to get out of chair or bed with limited or no assistance; able to groom with limited or no assistance; able to toilet with limited or no assistance Instrumental Activities of Daily Living:able to do house work with limited or no assistance; able to grocery shop with limited or no assistance; able to manage medications with limited or no assistance; able to manage money with limited or no assistance; able to prepare meals with limited or no assistance; able to use the phone with limited or no assistance Falls Risk Assessment:no frequent falls while walking; no fall in the past year; no fall since last visit; no dizziness/vertigo Home Safety:no unsafe tunde hazzards; no unsafe stairs; working smoke/CO detectors; practicing 'safer sex'; no fire arms; has hand bars in the bathroom/shower; good lighting in the home HI Ribeiro Attn: Accounting[address] [place], [address], [facility] 05/24/2024 00:24:27 OBGyn Episode No OBEpisode recorded.
--- OUTSIDE RECORDS SUMMARY | 2024-11-01 08:25 | XMS_ITS | Referral Summary ---
Author Organization [facility] Address [address] [place] [address] Care Team Providers Care Quality Liaison Name Role Phone Shaye Quintero Primary Care Pr ovider Source Comments [facility],non-owned Affiliates and Associated Physician Practices is amultiple site organization consisting of ambulatory clinics and hospital sitesin [place], [place], [place] and [place]. This disclosure is being madepursuant to the Care Everywhere program and may not contain all information available regarding this patient. Last updated 18.[facility] Allergies Active Allergy Reactions Criticality Noted Date [...] Mass Index 25.81 01/22/2024 12:43 PM CDT Functional Status Functional Status Response Date of Assess ment Is person deaf or have serious hearing difficult y? No 04/29/2023 Is person blind or have serious difficulty seein g? No 04/29/2023 Does person have serious dif ficulty walking/climbing stairs? No 04/29/2023 Does person have difficulty dressing/bathing? No 04/29/2023 Does person have difficulty doing errands alone? No 04/29/2023 Cognitive Status Response Date of Assessm ent Does person have difficulty concentrating/remembering/making decisions? No 04/29/2023 Plan of Treatment Upcoming Encounters Date Type Department Care Team (Late st Contact Info) Description 01/27/2025 12:00 PM CDT Office [place] [facility] [place] [address] [place] [phone] Lindy Caldwell MD [address] [place] [address] [address] [place] [phone] 01/27/2025 12:30 PM CDT Procedure visit [facility] [address] [place] [address] [place] [address] Goals Goal Patient Goal Type Associated Problems Recent Progress Patient-Stated? Author Medication Management General On track( 1:26 PM CDT) No Swetha Serrano, RN Note: Expected end date: ongoing Interventions: Take all medications as prescribed Let your doctor know right away about any changes in your medications Make sure to request a refill of your medication at least one week prior to your last dose Safety General On track( 1:26 PM CDT) No Swetha Serrano, RN Note: Expected end date: ongoing Interventions: [...] 7 - 26 mg/dL 01/22/2024 3:10 PM CDT [facility] Creatinine 0.76 0.56 - 0.96 mg/dL 01/22/2024 3:10 PM CDT [facility] Sodium 140 136 - 145 mmol/L 01/22/2024 3:10 PM CDT [facility] Potassium 4.1 3.5 - 4.5 mmol/L 01/22/2024 3:10 PM CDT [facility] Chloride 105 98 - 107 mmol/L 01/22/2024 3:10 PM CDT [facility] CO2 25 22 - 29 mmol/L 01/22/2024 3:10 PM CDT [facility] Glucose 97 70 - 115 mg/dL 01/22/2024 3:10 PM [facility] Calcium 10.4(H) 8.4 - 10.2 mg/dL 01/22/2024 3:10 PM [facility] Protein Total 7.6 6.0 - 8.3 g/dL 01/22/2024 3:10 PM [facility] Albumin 4.2 3.4 - 5.0 g/dL 01/22/2024 3:10 PM [facility] Bilirubin Total 0.4 0.2 - 1.2 mg/dL 01/22/2024 3:10 PM [facility] Alkaline Phosphatase 111 40 - 150 U/L 01/22/2024 3:10 PM [facility] ALT 25 5 - 55 U/L 01/22/2024 3:10 PM [facility] AST 26 5 - 34 U/L 01/22/2024 3:10 PM [facility] Anion Gap 10 6 - 16 01/22/2024 3:10 PM [facility] BUN/Creatinine Ratio 28(H) 7 - 23 01/22/2024 3:10 PM [facility] Osmolality Calculated 293 275 - 295 mOsm/kg 01/22/2024 3:10 PM [facility] Albumin/Globulin Ratio 1.2 1.1 - 2.3 01/22/2024 3:10 PM [facility] eGFR by CKD-EPI 87(L) >=90 mL/min/1.7 3 m2 01/22/2024 3:10 PM [facility] Blood BLOOD SPECIMEN / Unknown Lab Venipuncture / Unknown 01/22/2024 2:19 PM CDT 01/22/2024 2:42 PM CDT Lindy Caldwell MD LAB - CHEMISTRY [facility] [address] [place] [address], [facility] [phone] * HEPATITIS C ANTIBODY (01/31/2022 2:44 PM CDT) Hepatitis C Antibody Non-react jackie Non-reac tive 01/31/2022 4:06 PM CDT [facility] Comment:Hepatitis C Antibody screen indicates no serologic [...] Caldwell MD LAB - CHEMISTRY [facility] [address] [place] [address], [facility] [phone] from Last 3 Months or Most Recently Relevant to Health Maintenance Care Teams Quality Liaison Relationship Specialty Start Date End Date Shaye Quintero PA [address] [place] [address] PCP - General Physician Breakfast And Room Attendant 06/28/16
--- OUTSIDE RECORDS SUMMARY | 2024-11-01 08:25 | XMS_ITS | Patient Health Summary ---
Author Organization [facility] Address [address] [place] [address] Care Team Providers Care Clerk Specialist Name Role Phone Shaye Quintero Primary Care Pr ovider Note from [facility],non-owned Affiliates and Associated Physician Practices is amultiple site organization consisting of ambulatory clinics and hospital sitesin [place], [place], [place] and [place]. This disclosure is being madepursuant to the Care Everywhere program and may not contain all information available regarding this patient. Last updated 18.[facility] Allergies * Gluten Meal(Headache) * Peanut-Derived(Headache) * Sulfa Drugs(Rash) -Medium Criticality Medications * Be aware that medications may not be up to date on this document. Alwaysverify current medications with the patient. 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) * IRON + TRANSFERRIN PANEL(Performed 01/22/2024) Performed for 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) * COMPREHENSIVE METABOLIC PANEL(Performed 01/22/2024) Performed for 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) * CBC W AUTO DIFFERENTIAL(Performed 01/22/2024) Performed for 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) * PT-INR [facility](Performed 01/22/2024) Performed for Elevated liver enzymes * COMPREHENSIVE METABOLIC PANEL(Performed 07/16/2023) Performed for Elevated liver enzymes, Elevated ferritin * CBC W AUTO DIFFERENTIAL(Performed 07/16/2023) Performed for Elevated liver enzymes, Elevated ferritin * FERRITIN(Performed 07/16/2023) Performed for Elevated liver enzymes, Elevated ferritin * IRON + TRANSFERRIN PANEL(Performed 07/16/2023) Performed for Elevated liver enzymes, Elevated ferritin * NEEDLE BIOPSY, LIVER(Performed 04/29/2023) * PATHOLOGY TISSUE(Performed 04/29/2023) Performed for Elevated liver enzymes * BIOPSY LIVER (NEEDLE/PERCUTANEOUS)(Performed 04/29/2023) Performed for Elevated liver enzymes * PT-INR(Performed 04/02/2023) Performed for Elevated liver enzymes * CBC W AUTO DIFFERENTIAL(Performed 04/02/2023) Performed for Elevated liver enzymes * COMPREHENSIVE METABOLIC PANEL(Performed 04/02/2023) Performed for Elevated liver enzymes * MO LIVER ELASTOGRAPHY(Performed 02/26/2023) Performed for Abnormal liver enzymes, Nonalcoholic fatty liver disease * [place] LIVER ELASTOGRAPHY(Performed 12/04/2022) Performed for Abnormal liver enzymes * HEMOCHROMATOSIS MUTATION PANEL(Performed 06/05/2022) Performed for Abnormal liver enzymes, Elevated ferritin * IRON + TIBC + FERRITIN(Performed 06/05/2022) Performed for Abnormal liver enzymes, Elevated ferritin * ALKALINE PHOSPHATASE BLOOD ISOENZYME PANEL(Performed 06/05/2022) Performed for Abnormal liver enzymes * COMPREHENSIVE METABOLIC PANEL(Performed 06/05/2022) Performed for Abnormal liver enzymes * SMOOTH MUSCLE ANTIBODY W REFLEX TITER(Performed 01/31/2022) Performed for Abnormal liver enzymes * COMPREHENSIVE METABOLIC PANEL(Performed 01/31/2022) Performed for Abnormal liver enzymes * TISSUE TRANSGLUTAMINASE AB IGA(Performed 01/31/2022) Performed for Abnormal liver enzymes * CERULOPLASMIN(Performed 01/31/2022) Performed for Abnormal liver enzymes * XCTIX-6-[id number] BLOOD(Performed 01/31/2022) Performed for Abnormal liver enzymes * FERRITIN(Performed 01/31/2022) Performed for Abnormal liver enzymes * HEPATITIS C ANTIBODY(Performed 01/31/2022) Performed for Abnormal liver enzymes * HEPATITIS A ANTIBODY(Performed 01/31/2022) Performed for Abnormal liver enzymes * HEPATITIS B SURFACE ANTIGEN W RFLX CONFIRMATION(Performed 01/31/2022) Performed for Abnormal liver enzymes * MITOCHONDRIAL ANTIBODY SCREEN(Performed 01/31/2022) Performed for Abnormal liver enzymes * IVC BLOOD SCREEN W/REFLEX TITER(Performed 01/31/2022) Performed for Abnormal liver enzymes * IGM BLOOD(Performed 01/31/2022) Performed for Abnormal liver enzymes * IGG BLOOD(Performed 01/31/2022) Performed for Abnormal liver enzymes * IGA BLOOD(Performed 01/31/2022) Performed for Abnormal liver enzymes * [place] LIVER ELASTOGRAPHY(Performed 01/31/2022) Performed for Nonalcoholic fatty liver disease, Abnormal liver enzymes Results * PT-INR [facility] (01/22/2024 2:19 PM CDT) PT 12.6 12.1 - 14.8 Seconds 01/22/2024 3:03 PM CDT [facility] INR 1.0 See Comment 01/22/2024 3:03 PM [facility] Comment:The suggested therap eutic range for standard coumadin (warfarin) therapy is an INR of 2.0-3.0. For high-risk patients (Mechanical Mitral Valve Prosthesis, etc.), the suggested prophylactic therapeutic range is an INR of 2.5-3.5. Blood BLOOD SPECIMEN / Unknown Lab Venipuncture / Unknown 01/22/2024 2:19 PM CDT 01/22/2024 2:39 PM CDT Renee Florianshahriar MANAGER FINANCIAL SERVICES-CAFETERIA CLERK LAB - COAGULATION OR DERABLES [facility] [address] [place] [address], [facility] [phone] * CBC WITH DIFFERENTIAL (01/22/2024 2:19 PM CDT) Only the most recent of3 resultswithin the time period is included. WBC 7.6 4.0 - 10.7 x10E9/L 01/22/2024 2:47 PM [facility] RBC Count 4.66 3.90 - 5.20 x10E12/L 01/22/2024 2:47 PM [facility] Hemoglobin 14.8 11.9 - 15.8 g/dL 01/22/2024 2:47 PM [facility] Hematocrit 42.5 34.8 - 46.1 % 01/22/2024 2:47 PM [facility] MCV 91.2 80.0 - 98.0 fL 01/22/2024 2:47 PM [facility] MCH 31.8 26.7 - 33.6 pg 01/22/2024 2:47 PM [facility] MCHC 34.8 31.7 - 36.3 g/dL 01/22/2024 2:47 PM [facility] RDW-CV 12.6 11.3 - 14.8 % 01/22/2024 2:47 PM [facility] Platelet Count 242 150 - 420 x10E9/L 01/22/2024 2:47 PM [facility] MPV 10.9 7.8 - 11.4 fL 01/22/2024 2:47 PM CDT [facility] Neutrophil % 66.9 41.0 - 74.0 % 01/22/2024 2:47 PM [facility] Lymphocyte % 20.6 17.0 - 47.0 % 01/22/2024 2:47 PM [facility] Monocyte % 10.5 3.0 - 11.0 % 01/22/2024 2:47 PM T [facility] Eosinophil % 0.8 0.0 - 7.0 % 01/22/2024 2:47 PM [facility] Basophil % 0.9 0.0 - 1.6 % 01/22/2024 2:47 PM [facility] Immature Granulocytes % 0.3 0.0 - 1.0 % 01/22/2024 2:47 PM [facility] Neutrophil Absolute 5.10 1.60 - 7.50 x10E9/L 01/22/2024 2:47 PM T [facility] Lymphocyte Absolute 1.57 1.00 - 4.40 x10E9/L 01/22/2024 2:47 PM T [facility] Monocyte Absolute 0.80 0.15 - 1.00 x10E9/L 01/22/2024 2:47 PM [facility] Eosinophil Absolute 0.06 0.00 - 0.60 x10E9/L 01/22/2024 2:47 PM T [facility] Basophil Absolute 0.07 0.00 - 0.13 x10E9/L 01/22/2024 2:47 PM T [facility] Blood BLOOD SPECIMEN / Unknown Lab Venipuncture / Unknown 01/22/2024 2:19 PM CDT 01/22/2024 2:43 PM CDT Lindy Caldwell MD LAB - HEMATOLOGY ORD ERABLES [facility] [address] [place] [address], [facility] [phone] * (ABNORMAL) COMPREHENSIVE METABOLIC PANEL (01/22/2024 2:19 PM CDT) Only the most recent of5 resultswithin the time period is included. BUN 21 7 - 26 mg/dL 01/22/2024 3:10 PM [facility] Creatinine 0.76 0.56 - 0.96 mg/dL 01/22/2024 3:10 PM [facility] Sodium 140 136 - 145 mmol/L 01/22/2024 3:10 PM [facility] Potassium 4.1 3.5 - 4.5 mmol/L 01/22/2024 3:10 PM [facility] Chloride 105 98 - 107 mmol/L 01/22/2024 3:10 PM [facility] CO2 25 22 - 29 mmol/L 01/22/2024 3:10 PM [facility] Glucose 97 70 - 115 mg/dL 01/22/2024 3:10 PM [facility] Calcium 10.4(H) 8.4 - 10.2 mg/dL 01/22/2024 3:10 PM [facility] Protein Total 7.6 6.0 - 8.3 g/dL 01/22/2024 3:10 PM [facility] Albumin 4.2 3.4 - 5.0 g/dL 01/22/2024 3:10 PM [facility] Bilirubin Total 0.4 0.2 - 1.2 mg/dL 01/22/2024 3:10 PM [facility] Alkaline Phosphatase 111 40 - 150 U/L 01/22/2024 3:10 PM [facility] ALT 25 5 - 55 U/L 01/22/2024 3:10 PM [facility] AST 26 5 - 34 U/L 01/22/2024 3:10 PM [facility] Anion Gap 10 6 - 16 01/22/2024 3:10 PM [facility] BUN/Creatinine Ratio 28(H) 7 - 23 01/22/2024 3:10 PM [facility] Osmolality Calculated 293 275 - 295 mOsm/kg 01/22/2024 3:10 PM [facility] Albumin/Globulin Ratio 1.2 1.1 - 2.3 01/22/2024 3:10 PM [facility] eGFR by CKD-EPI 87(L) >=90 mL/min/1.7 3 m2 01/22/2024 3:10 PM CDT [facility] Blood BLOOD SPECIMEN / Unknown Lab Venipuncture / Unknown 01/22/2024 2:19 PM CDT 01/22/2024 2:42 PM CDT Lindy Caldwell MD LAB - CHEMISTRY AUDREY MCCOLLUM [facility] [address] [place] [address], [place] [phone] * IRON + TRANSFERRIN PANEL [w/Transferrin Sat % + TIBC] (01/22/2024 2:19 PM CDT) Only the most recent of2 resultswithin the time period is included. Iron 126 40 - 150 ug/dL 01/22/2024 3:34 PM CDT [facility] Transferrin 207 174 - 382 mg/dL 01/22/2024 3:34 PM CDT [facility] Transferrin Saturation % 49 16 - 50 % 01/22/2024 3:34 PM CDT [facility] TIBC Calculated 259 240 - 450 ug/dL 01/22/2024 3:34 PM CDT [facility] Blood BLOOD SPECIMEN / Unknown Lab Venipuncture / Unknown 01/22/2024 2:19 PM CDT 01/22/2024 2:39 PM CDT Lindy Caldwell MD LAB - CHEMISTRY AUDREY MCCOLLUM [facility] [address] [place] [address], [place] [phone] * FERRITIN (01/22/2024 2:19 PM CDT) Only the most recent of3 resultswithin the time period is included. Ferritin 187 13 - 204 ng/mL 01/22/2024 3:52 PM CDT [facility] Blood BLOOD SPECIMEN / Unknown Lab Venipuncture / Unknown 01/22/2024 2:19 PM CDT 01/22/2024 2:39 PM CDT Lindy Caldwell MD LAB - CHEMISTRY AUDREY MCCOLLUM [facility] [address] [place] [address], [facility] [phone] * NEEDLE BIOPSY, LIVER (04/29/2023 11:15 AM CDT) Narrative [facility] - 04/29/2023 11:15 AM CDT Hira Cook MD 04/29/2023 11:16 AM PERCUTANEOUS LIVER BIOPSY PROCEDURE NOTE Patient Name: Rosa Boateng Date: 04/29/2023 Time: 11:15 AM Attending: Hira Cook MD Fellow: None Diagnosis/Indication: Elevated liver enzymes Location: Endoscopy Admission Status: Outpatient PERMIT The indications, risks, benefits and alternatives, as described below, were explained to the patient who agreed to proceed. Signed, informed consent was obtained. Possible risks of liver biopsy include: Bleeding- risk of hemodynamically significant bleed requiring blood transfusion or surgery is approximately 1:1,000 Perforation (gallbladder, lung, bowel, kidney, other) the risk of perforation is less than 1:1,000 Severe pain after biopsy, including referred shoulder pain; the risk of pain requiring analgesics is approximately 1:4. PROCEDURE DESCRIPTION The patient was placed in the supine position. The liver was palpated and percussed and an appropriate intercostal location was identified. Ultrasound Limited abdominal ultrasound for localization was performed. Comments: The liver was noted to be in a good position. The area was then prepped and draped in the usual sterile manner. 9 ml 1% lidocaine was used as a local anesthetic. Intravenous anxiolytic Versed 0 mg IV Fentanyl 0 mcg IV Biopsy performed after an endoscopic procedure: No. Instrument 16 G BioPince set at 33 mm (27 mm core) Adequate tissue was obtained using 1 pass from the right lobe. Procedure tolerated Well. Additional Comments Post procedure pain medication Oxycodone/acetaminophen 5/325 x 1-2 tabs prn Fentanyl 50 mcg IV q 30 min prn Immediate procedure complications Tissue was sent for: Routine histology. Fixation time: approximately 10 minutes before 11:15 AM. Follow-up appointment: As scheduled. I personally performed this procedure. I was present for all portions of this procedure. Hira Cook MD Hira Cook MD GI PROCEDU RE ORDERABLES [facility] * PATHOLOGY TISSUE (04/29/2023 11:04 AM CDT) Case Report Surgical Pathology Report Case: [id number] Authorizing Provider: Hira Cook Collected: 04/29/2023 11:04 AM MD Jorge Ordering Location: [facility] Received: 04/29/2023 12:37 PM Pathologist: Lorelei Lombardi MD Specimen: Liver, elevated liver enzymes 04/30/2023 6:20 PM CDT [facility] Final Diagnosis Liver, biopsy (A): - Minimal-mild hepatocellular iron - No significant steatosis or fibrosis 04/30/2023 6:20 PM CDT [facility] Microscopic Description and Comment The biopsy is one core of liver parenchyma regularly distributed portal tracts and central veins, i.e. normal lobular/acinar architecture. The hepatocytes have mild reactive changes including binucleation and scattered mitotic figures, and there is focal perivenular lipofuscin, but this is largely within normal limits. There is focal sinusoidal dilatation and congestion. The portal tracts have no significant inflammation, including no plasma cells or interface activity. Interlobular bile ducts are present and intact, without ductular reaction or cholestasis. There is no significant lobular inflammation, steatosis, or features of steatohepatitis. The trichrome stain highlights normal portal tracts and central veins without cirrhosis or any significant fibrosis. The reticulin stain highlights normal lobular architecture. The PAS-D stain is negative for alpha-1 antitrypsin globules. The iron stain shows blush hepatocellular iron throughout and patchy granular hepatocyte iron, up to 2+ with a periportal gradient, and focal punctate reticuloendothelial iron. Overall, there is only minimal to mild iron accumulation, without any significant associated hepatocyte loss or fibrosis. There is also no steatosis or features of steatohepatitis. 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 Fibroscan showed the probability of advanced liver fibrosis and hepatic steatosis both as moderate. 04/30/2023 6:20 PM T [facility] Gross Description The requisition and specimen(s) are identified with the patient's name Rosa Boateng. Received in formalin, specimen A , are 2 elongated ruiz-red soft tissues, 0.5 x 0.1 cm to 1.7 x 0 cm, which are submitted in toto in A1. /ml 04/30/2023 6:20 PM CDT [facility] Pathologist Location at [facility] 04/30/2023 6:20 PM CDT [facility] Disclaimer The performance characteristics of all immunohistochemical and indirect immunofluorescence stains (if any) cited in this report were determined by the Histopathology Laboratory of [facility]. Some of these tests were developed by our own laboratory and have not been cleared or approved by the US Food and Drug Administration. The FDA does not require this test to go through premarket FDA review. These tests are used for clinical purposes. They should not be regarded as investigational or for research. This laboratory is certified under the Clinical Laboratory Improvement Amendments (CLIA) as qualified to perform high complexity clinical laboratory testing. This case has been personally reviewed and interpreted by the attending (teaching) pathologist. 04/30/2023 6:20 PM CDT [facility] Embedded Images 04/30/2023 6:20 PM CDT [facility] Biopsy, Needle ENTIRE LIVER / Unknown 04/29/2023 11:04 AM CDT 04/29/2023 12:37 PM CDT Comment:Pre-op diagnosis: Elevated liver enzymes [R74.8] Hira Cook MD LAB - PATH OLOGY/CYTOLOGY ORDERABLES [facility] [address] [phone] * PT-INR (04/02/2023 9:20 AM CDT) INR 1.0 0.9 - 1.2 [facility] INSURANCE BILL Comment: Reference interval is for non-anticoagulated patients. . Suggested INR therapeutic range for Vitamin K antagonist therapy: Standard Dose (moderate intensity therapeutic range): 2.0 - 3.0 Higher intensity therapeutic range 2.5 - 3.5 PT 10.5 9.1 - 12.0 sec [facility] INS[facility]ANCE BILL Blood BLOOD SPECIMEN / Unknown 04/02/2023 9:20 AM CDT 04/02/2023 Narrative Resulting Agency Comment Lab Testing performed at: [facility] [phone] Renee BLACKMON LAB - COAGULATION OR DERABLES [facility] INSURANCE BILL [address] [place] [address] * [place] LIVER ELASTOGRAPHY (02/26/2023 8:28 AM CDT) Narrative Sonya-Hira Redd MD - 02/26/2023 8:28 AM CDT Hira Redd MD 03/20/2023 10:30 PM Diagnosis: Abnormal liver enzymes RN verified patient not , no implanted devices and NPO for prior 3 hours. Procedure explained. Date of Exam: 02/26/2023 Liver Stiffness: (LSM, kPa) median: 8.5 IQR (interquartile range): 2.0 IQR/Median% (ideally < 30%): 24% CAP (controlled attenuation parameter): 262 Technical Difficulty: None Ordering Provider: NEYMAR Kelley Phone Fax Fibroscan interpretation: I have personally reviewed the Fibroscan report and associated tracings. The calculated Liver Stiffness Measurement (LSM, kPa) indicates that: The probability of advanced liver fibrosis is: low to moderate. The loss of ultrasound signal, (controlled attenuation parameter, CAP [dB/m]), indicates that the probability of hepatic steatosis is: moderate. Hira Redd MD The following criteria are used to indicate the probability of advanced (stage 3-4) fibrosis: < 7.0 kPa: low 7.0-8.9 kPa: low to moderate 9.0-14.9 kPa: moderate 15-20 kPa: high > 20 kPa: very high Liver stiffness > 20 kPa is also associated with a high probability of complications of portal hypertension including varices and ascites. Liver stiffness > 50 kPa is associated with a high risk of variceal bleeding. These interpretations are based on the following published data: Naheed PJ, Ronnie M, Rosie M, et al. Accuracy of FibroScan controlled attenuation parameter and liver stiffness measurement in assessing steatosis and fibrosis in patients with nonalcoholic fatty liver disease. Gastroenterology 2019;156:5042-8493. Izabel MS, Sj R, Van Natta ML, et al. Vibration-controlled transient elastography to assess fibrosis and steatosis in patients with nonalcoholic fatty liver disease. Clin Gastroenterol Hepatol 2019;17:156-163. Note that scores have been developed that incorporate the Fibroscan liver stiffness measurement from large cohorts of patients with liver biopsies to further refine the ability of Fibroscan to identify patients with MOSCOSO and advanced fibrosis. These include the FAST (Fibroscan-AST) score (Angel, 202) and the Agile3+ and Agile4 scores (Kaylin, 202). Angel TA, Van Natta ML, Vazquez M, Jermaine A, et al. Validation of the accuracy of the FAST score for detecting patients with at-risk nonalcoholic steatohepatitis (MOSCOSO) in a [place] cohort and comparison to other non-invasive algorithms. PLoS ONE (2021) 17: [id number]. Kaylin AJ, Darlene J, Que ZM, et al. Enhanced diagnosis of advanced fibrosis and cirrhosis in individuals with NAFLD using FibroScan-based Agile scores. J Hepatol (2022) 78: 247-259. Fibroscan LSM can also be used with laboratory parameters without formulas to assess prognosis. According to the Baveno-VII criteria (Quiñones, 2021), Fibroscan LSM ?15 kPa plus a platelet count of ?349i026/L rules out clinically significant portal hypertension (sensitivity and negative predictive value >90%) in patients with compensated advanced chronic liver disease. Quiñones R, Wyatt J, Alan-Russ G, Radha T, Joslyn C on behalf of the Baveno VII Faculty. Baveno VII--Renewing consensus in portal hypertension. J Hepatol (2021) 76: 959-974 Assessing the likelihood of advanced fibrosis in patients with indeterminate liver stiffness measurement (LSM) by Fibroscan (e.g., 8-15 kPa) can be improved by also calculating the FIB-4 score (Gilberto et al. Hepatology Communications 2019;3:3090-6464) or NAFLD Fibrosis score (Vasquez et al. Clinical Gastroenterology and Hepatology 2019;17:3717-7091 using routine clinical data. Note: 1. Fibroscan cannot reliably identify earlier stages of fibrosis (ie distinguish F0 from F1 and F2) and thus a histologic stage cannot be predicted from the Fibroscan reading. 2. Liver stiffness can be increased by factors other than fibrosis including passive congestion, infiltrative processes, active alcoholism, recent moderate alcohol consumption in the 2 weeks before the exam, biliary obstruction and marked inflammation. The interpretation of the Fibroscan result provided above may not have taken such clinical factors into account. Disease etiology also influences Fibroscan cutoff values for fibrosis stages and the following cutoffs have been proposed (Torito et al, Clin Gastro Hepatol 2015; 13:27-36): Cutoffs for Stage 3 and Stage 4 fibrosis respectively: Hepatitis B: >9 and >11.7 kPa Hepatitis C: >9.5 and >12.5 kPa HCV-HIV: >11 and >14 kPa Cholestatic liver diseases: >10 and >17.9 kPa NAFLD/MOSCOSO: >10 and >14 kPa CAP estimates of steatosis: normal <200 dB/m mild 200 to 250 dB/m moderate 250-290 dB/m substantial > 290 dB/m (Note that Fibroscan is not a quantitative measure of liver fat.) These criteria are estimates and may change as additional supporting data becomes available. (This additional interpretive data was last updated 01/25/23.) [email or web address] Renee Glass MANAGER FINANCIAL SERVICES-CAFETERIA CLERK PROCEDURE/MINOR SURG ICAL ORDERABLES * PROC FIBROSCAN (12/04/2022 1:14 PM CDT) Narrative Dana Fontana RN - 12/04/2022 1:14 PM CDT Dana Fontana RN 12/04/2022 1:24 PM Diagnosis: Elevated Liver Enzymes , NAFLD RN verified patient not , no implanted devices and patient states ate a hamburger at noon today. Date of Exam: 12/04/2022 Liver Stiffness: (LSM, kPa) median: 9.7 IQR (interquartile range): 1.2 IQR/Median% (ideally < 30%): 12% CAP (controlled attenuation parameter): 273 Technical Difficulty: None Ordering Provider: Lindy Caldwell MD Phone Fax Procedure Note Dana Fontana RN - 12/04/2022 1:14 PM CDT Diagnosis: Elevated Liver Enzymes , NAFLD RN verified patient not , no implanted devices and patient statesate a hamburger at noon today. Date of Exam: 12/04/2022 Liver Stiffness: (LSM, kPa) median: 9.7 IQR (interquartile range): 1.2 IQR/Median% (ideally < 30%): 12% CAP (controlled attenuation parameter): 273 Technical Difficulty: None Ordering Provider: Lindy Caldwell MD Phone Fax Reene Glass MANAGER FINANCIAL SERVICES-[employer]FETERIA CLERK PROCEDURE/MINOR SURG ICAL ORDERABLES * (ABNORMAL) IRON + TIBC + FERRITIN (06/05/2022 2:34 PM CDT) TIBC 220(L) 250 - 450 ug/dL [facility] INSURANCE BILL UIBC 147 118 - 369 ug/dL [facility] INSURANCE BILL Iron 73 27 - 139 ug/dL [facility] INSURANCE BILL Iron Saturation 33 15 - 55 % [facility] INSURANCE BILL Ferritin 299(H) 15 - 150 ng/mL [facility] INSURANCE BILL Blood BLOOD SPECIMEN / Unknown 06/05/2022 2:34 PM CDT 06/05/2022 Narrative Resulting Agency Comment Lab Testing performed at: [facility] [address] [facility] [id number] Lindy Caldwell MD LAB - CHEMISTRY AUDREY MCCOLLUM [facility] INSURANCE BILL [address] [place] [address] * HEMOCHROMATOSIS MUTATION PANEL (06/05/2022 2:34 PM CDT) Hereditary Hemochromatosis [facility] INSURANCE BILL Comment: Results: c.845G>A (p.Ypn182Hna) - Detected, heterozygous c.187C>G (p.Wui11Prz) - Detected, heterozygous c.193A>T (p.Wiz86Ggo) - Not Detected Associated with a low risk to develop clinically relevant symptoms of hereditary hemochromatosis. Biochemical testing such as transferrin-iron saturation and/or serum ferritin studies is recommended to confirm a diagnosis. See Additional Information and Comments. Additional Clinical Information: Hereditary hemochromatosis (HFE related) is an autosomal recessive iron storage disorder. Patients may have a genetic diagnosis of hereditary hemochromatosis and never show clinical symptoms. Clinical symptoms typically appear between 40 to 60 years in males and after menopause in females. Signs and symptoms may include organ damage, primarily in the liver, risk for hepatocellular carcinoma, diabetes, and heart disease due to iron accumulation. Life expectancy may be decreased in individuals who develop cirrhosis. Treatment for clinically symptomatic individuals may include therapeutic phlebotomy. Liver transplant may be used to treat end stage liver failure. For preventive care, monitoring for iron overload is recommended for patients who are homozygous for c.845G>A (p.Fmp079Ftc) and have yet to experience clinical symptoms. . Comments: The most common HFE variants associated with hereditary hemochromatosis are c.845G>A (p.Kqj646Dfm), c.187C>G (p.Bux14Saw), c.193A>T (p.Ixa21Ecy). While patients homozygous for c.845G>A (p.Ynl412Ehd) are the most likely to present clinical symptoms, less than 10% develop clinically significant iron overload with tissue and organ damage. . Genetic counseling is recommended to discuss the potential clinical implications of positive results, as well as recommendations for testing family members. Genetic Coordinators are available for health care providers to discuss results at [phone] ([phone]). . Test Details: Three variants analyzed: c.845G>A (p.Cpj009Oho), commonly referred to as C282Y c.187C>G (p.Mkd51Blk), commonly referred to as H63D c.193A>T (p.Cok40Ykv), commonly referred to as S65C . Methods/Limitations: DNA Analysis of the HFE gene (NM_[id number]) was performed by PCR amplification followed by restriction enzyme digestion analyses. Results must be combined with clinical information for the most accurate interpretation. Molecular-based testing is highly accurate, but as in any laboratory test, diagnostic errors may occur. False positive or false negative results may occur for reasons that include genetic variants, blood transfusions, bone marrow transplantation, somatic or tissue-specific mosaicism, mislabeled samples, or erroneous representation of family relationships. This test was developed and its performance characteristics determined by [facility]. It has not been cleared or approved by the Food and Drug Administration. . References: Chencho BR, Josh PC, Janene KV, Pato LW, Arik ; [employer]. Diagnosis and management of hemochromatosis: 2011 practice guideline by the [employer] Liver Diseases. Hepatology. 2011 Mar;54(1):328-43. doi: 10.1002/hep.05882. PMID: 33448865; PMCID: VCQ2931389. Yuriy G, Arnaldo P, Angelina BRYANT, John H, Axel O, Syd S, Stefano I, Checo M, Richard S. [facility] best practice guidelines for the molecular genetic diagnosis of hereditary hemochromatosis (HH). Eur J Hum Marjorie. 2016 Dec;24(4):479-95. doi: 10.1038/ejhg.2015.128. Epub 2014Mar 29. PMID: 60830519; PMCID: LWV4662589. . Lina Vazquez, PhD, FACMG María Mar, PhD Eliud Walden, PhD, FACMG Jl De Leon, PhD, FACMG Reg Hayes, PhD, FACMG Lanny Russ, PhD, FACMG Ivana Sánchez, PhD, FACMG Zuri Christie, PhD, FACMG Blood BLOOD SPECIMEN / Unknown 06/05/2022 2:34 PM CDT 06/05/2022 Narrative Resulting Agency Comment Lab Testing performed at: [facility] [address] [place] [id number] Lindy Caldwell MD LAB - CHEMISTRY AUDREY MCCOLLUM [facility] [address] [place] [address] * ALKALINE PHOSPHATASE BLOOD ISOENZYME PANEL (06/05/2022 2:33 PM CDT) Alkaline Phosphatase Liver Fraction 61 18 - 85 % [facility] INSURANCE BILL Alkaline Phosphatase Bone Fraction 25 14 - 68 % [facility] INSURANCE BILL Alkaline Phosphatase Intestinal Fraction 15 0 - 18 % [facility] INSURANCE BILL Blood BLOOD SPECIMEN / Unknown 06/05/2022 2:33 PM CDT 06/05/2022 Narrative Resulting Agency Comment Lab Testing performed at: [facility] [address] [facility] [id number] Lindy Caldwell MD LAB - CHEMISTRY AUDREY MCCOLLUM [facility] [address] [place] [address] * SMOOTH MUSCLE ANTIBODY W REFLEX TITER (01/31/2022 2:44 PM CDT) F-Actin Antibody IgG 8 0 - 19 Units 02/02/2022 10:50 AM CDT [facility] ([facility]) Comment: If F-Actin (Smooth Muscle) Antibody, IgG is negative, the Smooth Muscle Antibody titer by IFA is not performed. REFERENCE INTERVAL: F-Actin (Smooth Muscle) Antibody, IgG by EDEN 19 Units or less ....... Negative 20 - 30 Units .......... Weak Positive-Suggest repeat testing in two to three weeks with fresh specimen. 31 Units or greater..... Positive-Suggestive of autoimmune hepatitis type 1 or chronic active hepatitis. F-actin IgG antibodies have been shown to have increased sensitivity for autoimmune hepatitis (AIH) but lower specificity than smooth muscle antibodies (SMA). F-actin IgG antibodies can also be seen in SMA-negative disease controls (non-AIH), especially in patients with primary biliary cirrhosis and chronic hepatitis C infections. Some patients with AIH may be SMA-positive but negative for F-actin IgG. Consider testing for SMA by IFA if suspicion for AIH is strong. Performed By: [facility] [address] [place] [address] 411 Directory Assistance Operator: More Short MD Blood BLOOD SPECIMEN / Unknown Lab Venipuncture / Unknown 01/31/2022 2:44 PM CDT 01/31/2022 3:16 PM CDT Lindy Caldwell MD LAB - SEROLOGY ORDER CHAYO [facility]) [address] * MITOCHONDRIAL ANTIBODY SCREEN (01/31/2022 2:44 PM CDT) Mitochondrial M2 Antibody 2.4 0.0 - 24.9 Units 02/02/2022 10:51 AM CDT [facility] ([facility]) Comment: REFERENCE INTERVAL: Mitochondrial (M2) Antibody, IgG 20.0 Units or less ......... Negative 20.1 - 24.9 Units........... Equivocal 25.0 Units or greater....... Positive Anti-mitochondrial antibodies (AMA) are thought to be present in 90-95% of patients with primary biliary cholangitis (PBC). However, the frequency of detected antibodies may be cohort or assay dependent, as lower sensitivities have been reported. Not all PBC patients are positive for AMA; some patients may be positive for SP100 and/or GP210 antibodies. A negative result does not rule out PBC. Performed By: [facility] [address] [place] [address] 411 Directory Assistance Operator: More Short MD Blood BLOOD SPECIMEN / Unknown Lab Venipuncture / Unknown 01/31/2022 2:44 PM CDT 01/31/2022 3:17 PM CDT Lindy Caldwell MD LAB - CHEMISTRY ORDE RABVIMAL Performing Organization Address City/[facility]/ZIP Co de Phone Number [facility] ([facility]) [address] * TISSUE TRANSGLUTAMINASE AB IGA (01/31/2022 2:44 PM CDT) Tissue Transglutaminase (tTG) Ab, IgA <2 0 - 3 U/mL 02/02/2022 10:26 AM CDT [facility] ([facility]) Comment: INTERPRETIVE INFORMATION: Tissue Transglutaminase (tTG) Antibody, IgA 3 U/mL or less: Negative 4-10 U/mL: Weak Positive 11 U/mL or greater: Positive Presence of the tissue transglutaminase (tTG) IgA antibody is associated with glutensensitive enteropathies such as celiac disease and dermatitis herpetiformis. tTG IgA antibody concentrations greater than 40 U/mL usually correlate with results of duodenal biopsies consistent with a diagnosis of celiac disease. For antibody concentrations greater or equal to 4 U/mL but less than or equal to 40 U/mL, additional testing for endomysial (YARELIS) IgA concentrations may improve the positive predictive value for disease. Performed By: [facility] [address] [place] [address] 411 Directory Assistance Operator: More Short MD Blood BLOOD SPECIMEN / Unknown Lab Venipuncture / Unknown 01/31/2022 2:44 PM CDT 01/31/2022 3:16 PM CDT Lindy Caldwell MD LAB - SEROLOGY ORDER CHAYO [facility]) [address] [place] [address], [facility] * VIC BLOOD SCREEN W/REFLEX TITER (01/31/2022 2:44 PM CDT) VIC IgG None Detected None Detected 02/02/2022 10:42 AM CDT [facility] ([facility]) Comment: If suspicion of connective tissue disease is strong and VIC EIA is negative, consider testing for VIC by IFA ([id number]). INTERPRETIVE INFORMATION: Anti-Nuclear Antibodies (VIC), IgG by EDEN Antinuclear Antibodies (VIC), IgG by EDEN: VIC specimens are screened using enzyme-linked immunosorbent assay (EDEN) methodology. All EDEN results reported as Detected are further tested by indirect fluorescent assay (IFA) using HEp-2 substrate with an IgG-specific conjugate. The VIC EDEN screen is designed to detect antibodies against dsDNA, histones, SS-A (Ro), SS-B (La), Patel, Patel/CARDIAC CATH LAB RADIOLOGY TECHNOLOGIST, Scl-70, Valeria-1, centromeric proteins, other antigens extracted from the HEp-2 cell nucleus. VIC EDEN assays have been reported to have lower sensitivities than VIC IFA for systemic autoimmune rheumatic diseases (SARD). Negative results do not necessarily rule out SARD. Performed By: [facility] [address] [place] [address] 411 Directory Assistance Operator: More Short MD Blood BLOOD SPECIMEN / Unknown Lab Venipuncture / Unknown 01/31/2022 2:44 PM CDT 01/31/2022 3:17 PM CDT Lindy Caldwlel MD LAB - CHEMISTRY AUDREY MCCOLLUM [facility] ([facility]) [address] [place] [address], [facility] * CERULOPLASMIN (01/31/2022 2:44 PM CDT) Ceruloplasmin 30 20 - 60 mg/dL 01/31/2022 3:48 PM CDT [facility] Blood BLOOD SPECIMEN / Unknown Lab Venipuncture / Unknown 01/31/2022 2:44 PM CDT 01/31/2022 3:17 PM CDT Lindy Caldwell MD LAB - CHEMISTRY AUDREY MCCOLLUM Performing Organization Address City/[facility]/ZIP Co de Phone Number [address] [address], [facility] [phone] * IYURT-7-[id number] BLOOD (01/31/2022 2:44 PM CDT) Pevia-4-Dnonns ypsin 161 90 - 200 mg/dL 01/31/2022 3:48 PM CDT [facility] Blood BLOOD SPECIMEN / Unknown Lab Venipuncture / Unknown 01/31/2022 2:44 PM CDT 01/31/2022 3:17 PM CDT Lindy Caldwell MD LAB - CHEMISTRY AUDREY MCCOLLUM [address] [address], [place] [phone] * HEPATITIS B SURFACE ANTIGEN W RFLX CONFIRMATION (01/31/2022 2:44 PM CDT) Pathologist [facility] Hepatitis B Virus Surface Antigen Non-reacti ve Non-reacti ve 01/31/2022 4:06 PM CDT [facility] Blood BLOOD SPECIMEN / Unknown Lab Venipuncture / Unknown 01/31/2022 2:44 PM CDT 01/31/2022 3:17 PM CDT Lindy Caldwell MD LAB - CHEMISTRY AUDREY MCCOLLUM [address] [address], [place] [phone] * IGM BLOOD (01/31/2022 2:44 PM CDT) Pathologist [facility] IgM 155 37 - 286 mg/dL 01/31/2022 3:50 PM CDT [facility] Blood BLOOD SPECIMEN / Unknown Lab Venipuncture / Unknown 01/31/2022 2:44 PM CDT 01/31/2022 3:17 PM CDT Lindy Caldwell MD LAB - CHEMISTRY AUDREY MCCOLLUM Performing Organization Address City/[facility]/ZIP Co de Phone Number [address] [address], [place] [phone] * IGG BLOOD (01/31/2022 2:44 PM CDT) Pathologist [facility] IgG 1,089 767 - 1,590 mg/dL 01/31/2022 3:50 PM CDT [facility] Blood BLOOD SPECIMEN / Unknown Lab Venipuncture / Unknown 01/31/2022 2:44 PM CDT 01/31/2022 3:17 PM CDT Lindy Caldwell MD LAB - CHEMISTRY AUDREY MCCOLLUM [address] [address], [place] [phone] * IGA BLOOD (01/31/2022 2:44 PM CDT) Pathologist [facility] IgA 352 61 - 356 mg/dL 01/31/2022 3:50 PM CDT [facility] Blood BLOOD SPECIMEN / Unknown Lab Venipuncture / Unknown 01/31/2022 2:44 PM CDT 01/31/2022 3:17 PM CDT Lindy Caldwell MD LAB - CHEMISTRY AUDREY MCCOLLUM Performing Organization Address [facility]/ZIP Co de Phone Number [address] [address], [facility] [phone] * HEPATITIS C ANTIBODY (01/31/2022 2:44 PM CDT) [facility] Hepatitis C Antibody Non-react jackie Non-reac tive 01/31/2022 4:06 PM CDT [facility] Comment:Hepatitis C Antibody screen indicates no [...] Caldwell MD LAB - CHEMISTRY AUDREY MCCOLLUM Performing Organization Address [facility] Co de Phone Number [address] [address], [facility] [phone] * HEPATITIS A ANTIBODY (01/31/2022 2:44 PM CDT) [facility] Hepatitis A Virus Antibody Total Negative Negative 02/02/2022 11:41 AM CDT [facility] ([facility]) Comment: Performed by [facility], [address] [place] [id number] [email or web address], More Short MD, Lab. Director Blood BLOOD SPECIMEN / Unknown Lab Venipuncture / Unknown 01/31/2022 2:44 PM CDT 01/31/2022 3:17 PM CDT Lindy Caldwell MD LAB - CHEMISTRY AUDREY MCCOLLUM [facility] ([facility]) [address] [place] [address], [facility] * MO LIVER ELASTOGRAPHY (01/31/2022 1:15 PM CDT) Narrative Genoveva Faye, RN - 01/31/2022 1:15 PM CDT Genoveva Faye, RN 01/31/2022 2:39 PM Diagnosis: NAFLD RN verified patient not , no implanted devices and NPO for prior 2 hours. Vital signs taken, procedure explained and consent signed. Date of Exam: 01/31/2022 Liver Stiffness: (LSM, kPa) median: 8.3 IQR (interquartile range): 1.8 IQR/Median% (ideally < 30%): 22 CAP (controlled attenuation parameter): 228 Technical Difficulty: None Ordering Provider: Wing Yury Caldwell Phone Fax Lindy Caldwell MD PROCEDURE/MINOR SURG ICAL ORDERABLES Care Teams Clerk Specialist Relationship Specialty Start Date End Date Shaye Quintero PA [address] [place] [address] PCP - General Physician Moulder Operator 06/28/16
--- OUTSIDE RECORDS SUMMARY | 2024-11-01 08:25 | XMS_ITS | Clinical Summary ---
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 Problems Includes: Problems addressed during this encounter and other active Problems All Visits Onset Date Resolved Date Provider Condition S tatus Osteopenia 02/28/2014 [facility] Active Last Documented On 12/27/2016 8:01AM ; [facility] Note: DEXA done Plan of Treatment [...] SAL PATEL ; [facility] Biotin 1000MCG Oral Tablet 12/27/2016 Provider: Diagnosis: Last Documented On 12/27/2016 8:10AM By SAL PATEL ; [facility] ZyrTEC Allergy 10 MG Capsule 11/30/2015 Provider: Diagnosis: Last Documented On 11/30/2015 8:48AM By MARISSA CARD CMA ; [facility] Calcium Citrate-Vitamin D 200-125 MG-UNIT Tablet 11/28 Provider: Diagnosis: Last Documented On 5 10:58AM By SAL PATEL ; [facility] Medications Administered Includes: Administered Medications [...] Active Last Documented On 8 11:03AM ; [facility] Insurance Includes: Active Insurance Policies Plan Name Member ID Group # Subscriber Relationship Effect jackie Dates 1 - [facility] [id number] QUIANA Cronin Clinical Notes Includes: Clinical Notes from this encounter No Clinical Notes Recorded
== END 2024-11-01 08:18 | disposition home or self-care (01) ==
LOC: ANHIMG 08:18
PROVIDERS: PCP Nurse Practitioner; Visit Provider Physician Assistant
DX: M85.89 Other specified disorders of bone density and structure, multiple sites (principal); Z78.0 Asymptomatic menopausal state; Z13.820 Encounter for screening for osteoporosis
CPT/HCPCS: 77080

== ENCOUNTER 2025-02-18 07:40 | Outpatient (CLI) | payer MEDICARE, OTHER, SELFPAY ==
--- NOTE | ~2025-02-18 | US_ITS ---
Limited Abdominal Sonogram: Real-time sonographic imaging of the right upper quadrant was performed. Clinical History: Irregular tearing hemachromatosis Findings: The liver appears normal with no evidence of mass lesion or bile duct dilatation. Main por zaki vein demonstrates normal direction of flow. The gallbladder is absent, compatible prior cholecyst ectomy. The common bile duct measures 6 mm. The visualized pancreas, aorta, and IVC are unremarkable . Right kidney unremarkable. Impression: No acute abnormality. Status post cholecystectomy. Reviewed, dictated and finalized at location . Impression: No acute abnormality. Status post cholecystectomy.
== END 2025-02-18 07:41 | disposition home or self-care (01) ==
DX: E83.110 Hereditary hemochromatosis (principal); Z90.49 Acquired absence of other specified parts of digestive tract
CPT/HCPCS: 76705